=== PATIENT | male | born 1955 | race Caucasian/White ===

== ENCOUNTER 2016-06-04 16:14 | Observation (INO) | payer SELFPAY ==
[~2016-06-04] VITALS: Ht 188 cm; Wt 87.9 kg
[~2016-06-04 16:14] MED LIST: ZITH250T PO
[2016-06-04 16:20] VITALS: BP 131/82; PULSE 66; RESP 18; TEMP 98.4; O2SAT 96
[2016-06-04] MEDS ORDERED: MORPHINE SULFATE 4 MG/ML INJ IV PUSH ONE (16:30)
[2016-06-04] MEDS ORDERED: ONDANSETRON HCL 4 MG/2 ML VIAL IV PUSH ONE (16:30)
[2016-06-04] MEDS ORDERED: TETANUS/DIPHTHERIA TOXOID ADULT 0.5 ML VIAL IM ONE (16:30)
--- NOTE | 2016-06-04 17:05 | RADRPT ---
EXAM DATE/TIME: 06/04/2016 16:42 [facility] COMPARISON: No previous studies available for comparison. INDICATIONS : Fall off 8 foot balcony today; cephalgia. RADIATION DOSE: 56.35 CTDIvol (mGy) MEDICAL HISTORY : None SURGICAL HISTORY : Tonsillectomy. Ear surgery ENCOUNTER: Initial ACUITY: 1 day PAIN SCALE: 6/10 LOCATION: cranial TECHNIQUE: Multiple contiguous axial images were obtained of the head. Using automated exposure control and adj ustment of the mA and/or kV according to patient size, radiation dose was kept as low as reasonably a chievable to obtain optimal diagnostic quality images. FINDINGS: CEREBRUM: The ventricles are normal for age. No evidence of midline shift, mass lesion, hemorrhage or acute in farction. No extra-axial fluid collections are seen. POSTERIOR FOSSA: The cerebellum and brainstem are intact. The 4th ventricle is midline. The cerebellopontine angle i s unremarkable. EXTRACRANIAL: The visualized portion of the orbits is intact. SKULL: The calvaria is intact. No evidence of skull fracture. CONCLUSION: 1. No acute intracranial abnormality identified. Mervin George MD on June 04, 2016 at 17:03 Board Certified Radiologist. This report was verified electronically.
--- NOTE | 2016-06-04 17:16 | RADRPT ---
EXAM DATE/TIME: 06/04/2016 16:36 [facility] COMPARISON: No previous studies available for comparison. INDICATIONS : Right ankle and foot pain. Patient fell through a second story porch. MEDICAL HISTORY : None. SURGICAL HISTORY : None. ENCOUNTER: Initial ACUITY: 1 day PAIN SCORE: 10/10 LOCATION: Right ankle. FINDINGS: There is a comminuted fracture of the calcaneus with loss of Boehler's angle. The fracture fragment e xtends into the subtalar joint. The talus itself is intact. Bony mineralization is normal. CONCLUSION: 1. Comminuted fracture of the calcaneus Gabriel Mejia MD on June 04, 2016 at 17:14 Board Certified Radiologist. This report was verified electronically.
--- NOTE | 2016-06-04 17:17 | RADRPT ---
EXAM DATE/TIME: 06/04/2016 16:40 [facility] COMPARISON: No previous studies available for comparison. INDICATIONS : Right foot and ankle pain. Patient fell through a second story porch. MEDICAL HISTORY : None. SURGICAL HISTORY : None. ENCOUNTER: Initial ACUITY: 1 day PAIN SCORE: 10/10 LOCATION: Right foot. FINDINGS: Three view examination of the right foot demonstrates no soft tissue swelling, dislocation, or fractu re. The tarsal bones appear intact. The interphalangeal and metatarsophalangeal joints are intact. Comminuted calcaneal fracture is present. CONCLUSION: 1. Comminuted calcaneal fracture Gabriel Mejia MD on June 04, 2016 at 17:14 Board Certified Radiologist. This report was verified electronically.
--- NOTE | 2016-06-04 17:25 | PD ---
HPI Chief Complaint: Fall Time Seen by Provider: 17:19 Travel History International Travel<30 days: No Contact w/Intl Traveler<30days: No Traveled to known affect area: No History of Present Illness HPI 60-year-old male that presents to the ED for evaluation of fall. Per patient he was on his porch on the second floor and apparently collapsed on itself. Per patient he fell into his right foot which took most of the impact. Per patient he has no pain anywhere else. He did hit his head and has a lot of dirt over him as he fell into third but denies losing consciousness or any other injuries. He does have abrasions to his head. He does not know his last tetanus shot. Per patient most of the pain is on the right foot and ankle from which she does have some swelling. Per patient the pain here is 8 out of 10. Ambulance was called and brought him here on a metal splint on the right leg. He denies any back pain or neck pain. No arm pain. No pain on the left lower extremity. He denies any abdominal pain or chest pain. He denies any blood thinners. He follows with Dr. Lujan for orthopedic surgery in the past for his left wrist. He has no allergies to medication. Denies any other medical problems. Pain does not radiate and stays mainly on the lower leg. Denies any numbness, tingling, weakness. No prior injuries to this leg. PFSH Past Medical History Anxiety: Yes Cancer: No Cardiovascular Problems: No Diminished Hearing: No Endocrine: No Genitourinary: No Immune Disorder: No Musculoskeletal: No Neurologic: No Psychiatric: Yes Reproductive: No Respiratory: No Past Surgical History Ear Surgery: Yes (ILENE. MYRINGOTOMIES) Oral Surgery: Yes (T & A) Tonsillectomy: Yes Tympanostomy Tube: Yes Social History Alcohol Use: No Tobacco Use: Yes (1 PK PER WEEK) Substance Use: No Allergies-Medications (Allergen,Severity, Reaction): Coded Allergies: No Known Allergies (Verified , 03/10/15) Reported Meds & Prescriptions Reported Meds & Active Scripts Active Zithromax Z-Deepak (Azithromycin) 250 Mg Tab 250 Mg PO DIRECTED 5 Days 500 MG (2 TABLETS) PO ON DAY 1, THEN 250 MG (1 TABLET) PO ON DAYS 2 TO 5. Review of Systems Except as stated in HPI: all other systems reviewed are Neg Physical Exam Narrative GENERAL: SKIN: Warm and dry. HEAD: Atraumatic. Normocephalic. EYES: Pupils equal and round. No scleral icterus. No injection or drainage. ENT: No nasal bleeding or discharge. Mucous membranes pink and moist. Tongue is midline. No uvula deviation. NECK: Trachea midline. No JVD. CARDIOVASCULAR: Regular rate and rhythm. No murmurs, S3, S4. RESPIRATORY: No accessory muscle use. Clear to auscultation. Breath sounds equal bilaterally. GASTROINTESTINAL: Abdomen soft, non-tender, nondistended. Hepatic and splenic margins not palpable. MUSCULOSKELETAL: Extremities without clubbing, cyanosis, or edema. No obvious deformities. Full range of motion of the upper extremities with no pain. 2+ pulses in the upper extremities. No lumbar, thoracic, cervical spine tenderness to palpation. Patient does have some tenderness to palpation especially on the heel aspect of the right foot. Some swelling in the area. Patient has no lateral medial malleolar pain with touch. No obvious deformity noted on the knee or hip but able to move the hip and knee with no issues. Patient has full range of motion and no pain with range of motion of the left upper and lower extremity. 2+ pulses bilaterally in the lower extremities. Neurovascular intact. Good capillary refills in all toes. NEUROLOGICAL: Awake and alert. No obvious cranial nerve deficits. Motor grossly within normal limits. Five out of 5 muscle strength in the arms and legs. Normal speech. PSYCHIATRIC: Appropriate mood and affect; insight and judgment normal. Data Data Last Documented VS Vital Signs Date Time Temp Pulse Resp B/P Pulse Ox O2 Delivery O2 Flow Rate FiO2 06/04/16 16:20 98.4 66 18 131/82 96 Orders Ankle, Complete (Pay3gog) (06/04/16 16:23) Foot, Complete (Oqx2awt) (06/04/16 16:23) Ice/Cold Pack (06/04/16 16:23) Ct Brain W/O Iv Contrast(Rout) (06/04/16 16:23) Morphine Inj (Morphine Inj) (06/04/16 16:30) Ondansetron Inj (Zofran Inj) (06/04/16 16:30) Wound Care (06/04/16 16:25) Tetanus/Diphtheria Tox Adult (Tetanus/Di (06/04/16 16:30) Spine, Lumbar - Ltd (Ap & Lat) (06/04/16 ) Femur (Ap & Lat/2vws) (06/04/16 ) Tibia/Fibula (Ap/Lat) (06/04/16 ) Ct Foot W/O Contrast (06/04/16 ) Hydromorphone Pf Inj (Dilaudid Pf Inj) (06/04/16 18:00) Diet Npo (06/05/16 Dinner) ^ Consent (06/04/16 18:25) ^ Other Nursing Orders (06/04/16 18:25) Admit To Inpatient (06/04/16 ) Vital Signs (Adult) Q4H (06/04/16 18:23) Activity Oob With Assistance (06/04/16 18:23) Bedside Glucose JAMES.AC&HS (06/04/16 18:23) Head Rigger / Telemetry .CONTINUOUS (06/04/16 18:23) Diet Heart Healthy (06/04/16 Dinner) Sodium Chlor 0.9% 1000 Ml Inj (Ns 1000 M (06/04/16 18:23) Sodium Chloride 0.9% Flush (Ns Flush) (06/04/16 18:30) Sodium Chloride 0.9% Flush (Ns Flush) (06/04/16 21:00) Acetaminophen (Tylenol) (06/04/16 18:30) Ondansetron Inj (Zofran Inj) (06/04/16 18:30) Magnesium Hydroxide Liq (Milk Of Magnesi (06/04/16 18:30) Basic Metabolic Panel (Bmp) (06/05/16 06:00) Comprehensive Metabolic Panel (06/05/16 06:00) Resp Oxygen Vickey C Titrat 1-4 L (06/04/16 ) Pt Request For Service (06/04/16 18:23) Ot Request For Service (06/04/16 18:23) Case Management Consult (06/04/16 18:23) Scd Bilateral/Knee High JAMES.BID (06/04/16 18:23) Inpatient Certification (06/04/16 ) Admit Order (Ed Use Only) (06/04/16 18:28) MDM Medical Decision Making Medical Screen Exam Complete: Yes Emergency Medical Condition: Yes Medical Record Reviewed: Yes Interpretation(s) Last Impressions Head CT 06/04/16 1623 Signed Impressions: Service Date/Time: Saturday, June 04, 2016 16:42 - CONCLUSION: 1. No acute intracranial abnormality identified. Mervin George MD Differential Diagnosis Fracture versus sprain versus strain versus bruise versus contusion versus fall Narrative Course 60-year-old male that presents to the ED for evaluation of right foot pain after fall. Patient was properly examined and was found to have signs and symptoms concerning for fractures. X-rays were ordered. Patient was given IV pain medications. X-ray showed right calcaneus fracture. Case was discussed in my attending who recommends doing x-rays of the lumbar spine as well as the femur and tibia and fibula to make sure there is no other acute injury. This was done and was negative. Case was discussed with Dr. Tinoco from podiatry who recommends admission to medicine for surgery tomorrow. This was discussed with Dr. Galindo who agrees to admission. Patient was put on a splint as per podiatry's recommendation. She also wanted me to order CT to better evaluate the fracture. Patient was told this and agrees with admission and surgical plan. Diagnosis Primary Impression: Right calcaneal fracture Qualified Code: S92.014A - Closed nondisplaced fracture of body of right calcaneus, initial encounter Admitting Information Admitting Physician Requests: Observation Malachi Louie Jun 04, 2016 17:25
--- NOTE | 2016-06-04 17:51 | RADRPT ---
EXAM DATE/TIME: 06/04/2016 17:19 [facility] COMPARISON: No previous studies available for comparison. INDICATIONS : Trauma. Patient fell through a second story porch. Right leg pain. MEDICAL HISTORY : None. SURGICAL HISTORY : None. ENCOUNTER: Initial ACUITY: 1 day PAIN SCORE: 5/10 LOCATION: Right leg. FINDINGS: Two view examination of the right femur demonstrates no evidence of fracture or dislocation. Bony mi neralization is normal. The soft tissue structures are intact. CONCLUSION: 1. Negative examination of the femur. Gabriel Mejia MD on June 04, 2016 at 17:50 Board Certified Radiologist. This report was verified electronically.
--- NOTE | 2016-06-04 17:51 | RADRPT ---
EXAM DATE/TIME: 06/04/2016 17:18 [facility] COMPARISON: No previous studies available for comparison. INDICATIONS : Trauma. Patient fell through a second story porch. MEDICAL HISTORY : None. SURGICAL HISTORY : None. ENCOUNTER: Initial ACUITY: 1 day PAIN SCORE: 0/10 LOCATION: Bilateral lower back. FINDINGS: The vertebral bodies are normal in alignment on the lateral view. Moderate scoliotic deformity is pre sent to the right with a rotatory component with the apex at 02. There is no evidence of acute fractu re. Bony mineralization is normal. CONCLUSION: 1. There is no evidence of acute fracture. Gabriel Mejia MD on June 04, 2016 at 17:49 Board Certified Radiologist. This report was verified electronically.
--- NOTE | 2016-06-04 17:52 | RADRPT ---
EXAM DATE/TIME: 06/04/2016 17:25 [facility] COMPARISON: No previous studies available for comparison. INDICATIONS : Trauma. Patient fell through a second story porch. Right leg pain. MEDICAL HISTORY : None. SURGICAL HISTORY : None. ENCOUNTER: Initial ACUITY: 1 day PAIN SCORE: 5/10 LOCATION: Right leg. FINDINGS: Two view examination of the right tibia demonstrates no evidence of fracture or dislocation. Bony mi neralization is normal. The soft tissue structures are intact. CONCLUSION: Negative examination of the tibia and fibula. 1. Gabriel Mejia MD on June 04, 2016 at 17:50 Board Certified Radiologist. This report was verified electronically.
[2016-06-04] MEDS ORDERED: HYDROmorphone HCL PF 1 MG/ML VIAL IV PUSH ONE (18:00)
--- NOTE | 2016-06-04 18:08 | RADRPT ---
EXAM DATE/TIME: 06/04/2016 17:28 [facility] COMPARISON: ANKLE RIGHT COMPLETE ([id number]), June 04, 2016, 16:36. INDICATIONS : Trauma. Fell off a balcony today. Right foot pain. RADIATION DOSE: 9.19 CTDIvol (mGy) MEDICAL HISTORY : None SURGICAL HISTORY : None. ENCOUNTER: Initial ACUITY: 1 day PAIN SCALE: 10/10 LOCATION: Right foot TECHNIQUE: Volumetric scanning of the foot was performed. Using automated exposure control and adjustment of th e mA and/or kV according to patient size, radiation dose was kept as low as reasonably achievable to obtain optimal diagnostic quality images. FINDINGS: There are comminuted fractures of the calcaneus with a vertical fracture line through the posterior o ne 3rd body, horizontal line through the superior posterior one 3rd body, vertical fractures through the posterior middle and anterior articular facets, and multiple small bony fragments about the anter ior inferior aspect. The there is also a fracture through the base of the fused os trigonum. The ta marah, cuboid, and navicular are grossly intact. There is motion artifact in the forefoot making the f orefoot portion of the exam nondiagnostic. CONCLUSION: Comminuted calcaneal fractures involving all 3 facets, and anterior body, and posterior body. Robbin Boggs MD on June 04, 2016 at 18:03 Board Certified Radiologist. This report was verified electronically.
[2016-06-04] MEDS ORDERED: ONDANSETRON HCL 4 MG/2 ML VIAL IVP PRN (18:30)
[2016-06-04] MEDS ORDERED: ACETAMINOPHEN 325 MG TAB PO PRN (18:30)
[2016-06-04] MEDS ORDERED: MAGNESIUM HYDROXIDE SUSP 30 ML CUP PO PRN (18:30)
[2016-06-04] MEDS ORDERED: SODIUM CHLORIDE 0.9% FLUSH 10 ML FLUSH IV FLUSH PRN (18:30)
--- NOTE | 2016-06-04 20:36 | MB ---
cc: HARRIET SOFIA DPM DATE OF CONSULTATION 06/04/16 CHIEF COMPLAINT Right calcaneal fracture. HISTORY OF PRESENT ILLNESS Mr. León is a 60-year-old male patient who states that he was watering plants on his balcony and the balcony collapsed underneath him and he fell one story. He tried to get up and was unable to place weight onto the right foot and he was transferred to the emergency department where he has some swelling above the left eye, small laceration to the back of the head and a comminuted right calcaneal fracture. The patient states it is very painful, but he is tolerating it well. He states that he had a comminuted fracture of the left wrist which was operated on twice but eventually did heal. 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 The patient denies any numbness or unrelenting pain. PAST MEDICAL HISTORY The patient denies. PAST SURGICAL HISTORY Left wrist ORIF x2. MEDICATIONS Please see list. ALLERGIES NO KNOWN DRUG ALLERGIES. SOCIAL HISTORY The patient was at home alone. Denies any alcohol or drug abuse. 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 PHYSICAL EXAMINATION On physical exam, the patient does have palpable DP and PT pulses. Cap fill time less than 3 seconds. Active range of motion to the digits is within normal limits. Some mild to moderate edema on the posterior heel with some ecchymosis, but the plantar vault is supple. No signs of compartment syndrome. IMAGING STUDIES CAT scan shows comminuted calcaneal fracture with the joint depression and widening. ASSESSMENT Right foot comminuted calcaneal fracture. PLAN -Open reduction internal fixation tomorrow. -The patient understands he will be non-weightbearing postoperatively. -We will obtain crutches and oral medication needed for the patient before discharge. -I did review conservative and surgical options. The patient is agreeable to proceed with surgery. The consent was signed. The procedure was explained. No guarantees were given. He is to be n.p.o. after midnight. Continue current pain management. Harriet Sofia LMW/SA /6:32 PM /8:25 PM NAVA
[2016-06-04] MEDS: SODIUM CHLORIDE 0.9% FLUSH 10 ML FLUSH IV FLUSH SCH (21:00)
[2016-06-04] MEDS: HYDROmorphone HCL PF 1 MG/ML VIAL IV PUSH PRN (21:28)
[2016-06-04] MEDS: SODIUM CHLOR 0.9% 1000 ML INJ 1,000 ML IV SCH (21:28)
[2016-06-04 23:55] VITALS: BP 119/71; PULSE 74; RESP 18; TEMP 97.1; O2SAT 97
[2016-06-05] VITALS (7 sets, daily range): BP systolic 103–126; BP diastolic 56–76; PULSE 61–89; RESP 16–20; TEMP 97.8–99; O2SAT 92–95
[2016-06-05] MEDS: HYDROmorphone HCL PF 1 MG/ML VIAL IV PUSH PRN ×4 (01:39→14:29)
--- NOTE | 2016-06-05 02:09 | HHI.HP ---
[facility] Unknown Admission Diagnosis right calcaneal fracture Diagnoses: (1) Right calcaneal fracture Diagnosis: Principal Chief Complaint: fall with pain to the right ankle Travel History International Travel<30 Days: No Contact w/Intl Traveler <30 Da: No Traveled to Known Affected Are: No History of Present Illness patient is a 60 y/o male who presented to ER with pain to the right ankle after he fell at home. he says that he was working on his porch when he suddenly fell. he denies any prodromal symptoms prior to the fall including chest pain, sob, or dizziness. he didn't pass out but he hit his head on the floor. he was found to have right ankle fracture. other than pain to the right ankle he denies any other complaints. Review of Systems Constitutional: DENIES: Fever, Weight loss, Chills, Night Sweats Eyes: DENIES: Blurred vision, Diplopia, Vision loss, Double Vision Ears, nose, mouth, throat: DENIES: Tinnitus, Vertigo, Throat pain, Epistaxis Respiratory: DENIES: Apneas, Cough, Snoring, Wheezing, Hemoptysis, Sputum production, Shortness of breath Cardiovascular: DENIES: Chest pain, Palpitations, Syncope, Dyspnea on Exertion , PND, Lower Extremity Edema, Orthopnea, Claudication Gastrointestinal: DENIES: Abdominal pain, Black stools, Bloody stools, Constipation, Diarrhea, Nausea, Vomiting, Difficulty Swallowing, Anorexia Genitourinary: DENIES: Urinary frequency, Urgency, Hematuria, Dysuria Musculoskeletal: COMPLAINS OF: Joint pain (right ankle.), DENIES: Muscle aches , Stiffness, Joint Swelling Integumentary: DENIES: Rash Neurologic: DENIES: Abnormal gait, Headache, Localized weakness, Paresthesias, Seizures, Speech Problems, Tremor, Poor Balance Psychiatric: DENIES: Anxiety, Confusion, Mood changes, Depression, Hallucinations, Agitation, Suicidal Ideation, Homicidal Ideation, Delusions Past Family Social History Past Medical History not significant. Past Surgical History surgery on the left hand. Reported Medications none reported. Allergies: Coded Allergies: No Known Allergies (Verified , 03/10/15) Active Ordered Medications Current Medications Morphine Sulfate (Morphine Inj) 4 mg ONCE ONCE IV PUSH Last administered on 16:58; Start 06/04/16 at 16:30; Stop 06/04/16 at 16:31; Status DC Ondansetron HCl (Zofran Inj) 4 mg ONCE ONCE IV PUSH Last administered on 16:58; Start 06/04/16 at 16:30; Stop 06/04/16 at 16:31; Status DC Tetanus/ Diphtheria Toxoids (Tetanus/ Diphtheria Tox Adult) 0.5 ml ONCE ONCE IM Last administered on 06/04/16 16:59; Start 06/04/16 at 16:30; Stop 06/04/16 at 16:31; Status DC Hydromorphone HCl 1 mg 1 mg ONCE ONCE IV PUSH Last administered on 06/04/16 18 :11; Start 06/04/16 at 18:00; Stop 06/04/16 at 18:01; Status DC Sodium Chloride (NS 1000 ml Inj) 1,000 ml @ 100 mls/hr Q10H IV Last administered on 06/04/16 21:28; Start 06/04/16 at 18:23 Sodium Chloride (NS Flush) 2 ml UNSCH PRN IV FLUSH FLUSH AFTER USING IV ACCESS ; Start 06/04/16 at 18:30 Sodium Chloride (NS Flush) 2 ml BID IV FLUSH ; Start 06/04/16 at 21:00 Acetaminophen (Tylenol) 650 mg Q4H PRN PO TEMP > 100.4 Last administered on 06/04 20:33; Start 06/04/16 at 18:30 Ondansetron HCl (Zofran Inj) 4 mg Q6H PRN IVP NAUSEA OR VOMITING Last administered on 06/04/16 21:29; Start 06/04/16 at 18:30 Magnesium Hydroxide (Milk Of Magnesia Liq) 30 ml Q12H PRN PO CONSTIPATION; Start 06/04/16 at 18:30 Hydromorphone HCl (Dilaudid Pf Inj) 1 mg Q4H PRN IV PUSH PAIN Last administered on 06/05/16 01:39; Start 06/04/16 at 20:45 Pneumococcal Polyvalent Vaccine (Pneumovax-23 Inj) 25 mcg ONCE ONCE IM ; Start 06/05/16 at 09:00; Stop 06/05/16 at 09:01 Influenza Virus Vaccine (Flu (Quadrivalent) Vaccine Inj) 0.5 ml ONCE ONCE IM ; Start 06/05/16 at 09:00; Stop 06/05/16 at 09:01 Family History not relevant to this consult. Social History no smoking or drinking. Physical Exam Vital Signs Vital Signs Date Time Temp Pulse Resp B/P Pulse Ox O2 Delivery O2 Flow Rate FiO2 06/05/16 00:20 65 06/04/16 23:55 97.1 74 18 119/71 97 06/04/16 22:05 20 06/04/16 21:40 20 06/04/16 16:20 98.4 66 18 131/82 96 Physical Exam GENERAL: This is a well-nourished, well-developed patient, in no apparent distress. SKIN: laceration on the scalp HEAD: Atraumatic. Normocephalic. No temporal or scalp tenderness. EYES: Pupils equal round and reactive. Extraocular motions intact. No scleral icterus. No injection or drainage. ENT: Nose without bleeding, purulent drainage or septal hematoma. Throat without erythema, tonsillar hypertrophy or exudate. Uvula midline. Airway patent. NECK: Trachea midline. No JVD or lymphadenopathy. Supple, nontender, no meningeal signs. CARDIOVASCULAR: Regular rate and rhythm without murmurs, gallops, or rubs. RESPIRATORY: Clear to auscultation. Breath sounds equal bilaterally. No wheezes , rales, or rhonchi. GASTROINTESTINAL: Abdomen soft, non-tender, nondistended. No hepato-splenomegaly , or palpable masses. No guarding. MUSCULOSKELETAL: right ankle covered with clean dressing. NEUROLOGICAL: Awake and alert. Cranial nerves II through XII intact. Motor and sensory grossly within normal limits. Five out of 5 muscle strength in all muscle groups. Normal speech. Imaging Last Impressions Head CT 06/04/161622 Signed Impressions: Service Date/Time: Saturday, June 04, 2016 16:42 - CONCLUSION: 1. No acute intracranial abnormality identified. Mervin George MD Foot X-Ray 06/04/161622 Signed Impressions: Service Date/Time: Saturday, June 04, 2016 16:40 - CONCLUSION: 1. Comminuted calcaneal fracture Gabriel Mejia MD Ankle X-Ray 06/04/16 1623 Signed Impressions: Service Date/Time: Saturday, June 04, 2016 16:36 - CONCLUSION: 1. Comminuted fracture of the calcaneus Gabriel Mejia MD Tibia/Fibula X-Ray 06/04/16 0000 Signed Impressions: Service Date/Time: Saturday, June 04, 2016 17:25 - CONCLUSION: Negative examination of the tibia and fibula. 1. Gabriel Mejia MD Lumbar Spine X-Ray 06/04/16 0000 Signed Impressions: Service Date/Time: Saturday, June 04, 2016 17:18 - CONCLUSION: 1. There is no evidence of acute fracture. Gabriel Mejia MD Lower Extremity CT 06/04/16 0000 Signed Impressions: Service Date/Time: Saturday, June 04, 2016 17:28 - CONCLUSION: Comminuted calcaneal fractures involving all 3 facets, and anterior body, and posterior body. Robbin Boggs MD Femur X-Ray 06/04/16 0000 Signed Impressions: Service Date/Time: Saturday, June 04, 2016 17:19 - CONCLUSION: 1. Negative examination of the femur. Gabriel Mejia MD Assessment and Plan Assessment and Plan A/P - fall with right calcaneal fracture NPO for now- continue IV fluid- continue with pain control. podiatry consult appreciated and plan for ORIF . -DVT prophylaxis- SCD's- pending the planned surgery. Discussed Condition With the patient. Physician Certification 2 Midnight Certification Type: Admission for Inpatient Services Order for Inpatient Services The services are ordered in accordance with Medicare regulations or non- Medicare payer requirements, as applicable. In the case of services not specified as inpatient-only, they are appropriately provided as inpatient services in accordance with the 2-midnight benchmark. Estimated LOS (days): 2 days is the estimated time the patient will need to remain in the hospital, assuming treatment plan goals are met and no additional complications. Post-Hospital Plan: Home Problem Qualifiers (1) Right calcaneal fracture: Qualified Code: S92.014A - Closed nondisplaced fracture of body of right calcaneus, initial encounter Gildardo Garcia MD Jun 05, 2016 02:09
[2016-06-05 05:07] LABS: APTT (PATIENT) 28.8 SEC (24.3-30.1); PROTHROMBIN TIME - PATIENT 10.7 SEC (9.8-11.6)
[2016-06-05 05:27] LABS: ANION GAP 10 MEQ/L (5-15); AST (GOT) 25 U/L (15-37); BICARBONATE 25.3 MEQ/L (21.0-32.0); BLOOD UREA NITROGEN 21 MG/DL (7-18); CHLORIDE 105 MEQ/L (98-107); GLOMERULAR FILTRATION RATE 78 ML/MIN (>89); POTASSIUM 3.9 MEQ/L (3.5-5.1); SODIUM (NA) 140 MEQ/L (136-145)
[2016-06-05 05:30] LABS: ALKALINE PHOSPHATASE 89 U/L (45-117); ALT (GPT) 27 U/L (12-78); TOTAL BILIRUBIN ADULT 0.5 MG/DL (0.2-1.0)
[2016-06-05] MEDS: SODIUM CHLOR 0.9% 1000 ML INJ 1,000 ML IV SCH ×2 (06:08→14:23)
[2016-06-05] MEDS ORDERED: PNEUMOCOCCAL POLYVALENT INJ 25 MCG/0.5 ML SYR IM ONE (09:00)
[2016-06-05] MEDS ORDERED: INFLUENZA VIRUS VACCINE (QUADRIVALENT) 0.5 ML SYR IM ONE (09:00)
--- NOTE | 2016-06-05 09:17 | EKG ---
Date Performed: 06/04/2016 Time Performed: 21:24:46 PTAGE: 60 years EKG: Sinus rhythm INCOMPLETE RIGHT BUNDLE BRANCH BLOCK BORDERLINE ECG PREVIOUS TRACING : 04/02/2011 12.02 DOCTOR: Eric Tafoya Interpretating Date/Time 06/05/2016 09:14:51
[2016-06-05] MEDS: SODIUM CHLORIDE 0.9% FLUSH 10 ML FLUSH IV FLUSH SCH ×2 (10:22→21:00)
[2016-06-05] MEDS ORDERED: PROPOFOL 200 MG/20 ML AMP IV ONE (12:00)
[2016-06-05] MEDS ORDERED: ePHEDrine/NS 25 MG/5 ML SYR IV ONE (12:00)
[2016-06-05] MEDS ORDERED: PHENYLEPH/NS 1000 MCG/10 ML SYR IV ONE (12:00)
[2016-06-05] MEDS ORDERED: ONDANSETRON HCL 4 MG/2 ML VIAL IV PUSH ONE (12:00)
[2016-06-05] MEDS ORDERED: LACTATED RINGER'S 1000 ML INJ 1,000 ML IV ONE (12:00)
--- NOTE | 2016-06-05 14:43 | HHI.PR ---
Subjective Remarks Follow-up for fall with ankle fracture. Patient seen with his at bedside. The patient was on his back porch watering the plants yesterday when the porch collapsed, he felt with it. He complains of right heel pain, partially relieved by pain medication. He also complains of a mild headache, he did hit his head. He denies any lightheadedness, dizziness, vision changes. He doesn' t currently follow with any physicians. Understands that he will need to be nonweightbearing after the surgery. Plan is for surgery 4 PM today. Objective Vitals Vital Signs Date Time Temp Pulse Resp B/P Pulse Ox O2 Delivery O2 Flow Rate FiO2 06/05/16 12:14 99.0 62 16 103/56 94 06/05/16 11:38 67 06/05/16 08:40 97.8 63 19 103/63 92 06/05/16 07:40 98.3 61 16 115/69 95 06/05/16 06:40 20 06/05/16 03:04 98.1 65 18 119/71 95 06/05/16 00:20 65 06/04/16 23:55 97.1 74 18 119/71 97 06/04/16 21:40 20 06/04/16 16:20 98.4 66 18 131/82 96 I/O 06/04/16 06/04/16 06/04/16 06/05/16 06/05/16 06/05/16 07:00 15:00 23:00 07:00 15:00 23:00 Intake Total 376 ml Output Total 300 ml Balance 76 ml Intake IV Total 376 ml Output Urine Total 300 ml Result Diagram: 06/05/16 0355 Imaging Last Impressions Head CT 06/04/161622 Signed Impressions: Service Date/Time: Saturday, June 04, 2016 16:42 - CONCLUSION: 1. No acute intracranial abnormality identified. Mervin George MD Foot X-Ray 06/04/161622 Signed Impressions: Service Date/Time: Saturday, June 04, 2016 16:40 - CONCLUSION: 1. Comminuted calcaneal fracture Gabriel Mejia MD Ankle X-Ray 06/04/161622 Signed Impressions: Service Date/Time: Saturday, June 04, 2016 16:36 - CONCLUSION: 1. Comminuted fracture of the calcaneus Gabriel Mejia MD Tibia/Fibula X-Ray 06/04/16 0000 Signed Impressions: Service Date/Time: Saturday, June 04, 2016 17:25 - CONCLUSION: Negative examination of the tibia and fibula. 1. Gabriel Mejia MD Lumbar Spine X-Ray 06/04/16 0000 Signed Impressions: Service Date/Time: Saturday, June 04, 2016 17:18 - CONCLUSION: 1. There is no evidence of acute fracture. Gabriel Mejia MD Lower Extremity CT 06/04/16 0000 Signed Impressions: Service Date/Time: Saturday, June 04, 2016 17:28 - CONCLUSION: Comminuted calcaneal fractures involving all 3 facets, and anterior body, and posterior body. Robbin Boggs MD Femur X-Ray 06/04/16 0000 Signed Impressions: Service Date/Time: Saturday, June 04, 2016 17:19 - CONCLUSION: 1. Negative examination of the femur. Gabriel Mejia MD Objective Remarks GENERAL: Well-developed well-nourished. In no acute distress. SKIN: Warm and dry. Contusion above the left eyebrow. HEENT: Normocephalic. Pupils equal and round. Mucous membranes pink and moist. CARDIOVASCULAR: Regular rate and rhythm. No murmur appreciated. RESPIRATORY: No accessory muscle use. Clear to auscultation. Breath sounds equal bilaterally. GASTROINTESTINAL: Abdomen soft, non-tender, nondistended. Bowel sounds x4. MUSCULOSKELETAL: No obvious deformities. No clubbing or cyanosis. No edema. Able to wiggle right toes a little. NEUROLOGICAL: Awake and alert. No focal neurological deficits. Moves upper and lower extremities spontaneously. Normal speech. Sensation grossly intact in distal right lower extremity. PSYCHIATRIC: Appropriate mood and affect; insight and judgment normal. A/P Problem List: (1) Right calcaneal fracture ICD Code: S92.001A Status: Acute Assessment and Plan 60-year-old male with no significant past medical history who presented with fall after his back porch collapsed and admitted with right calcaneal fracture Comminuted right calcaneal fracture: Seen on imaging. Podiatry, Dr. Tinoco, consulted and recommends operative management. Follow-up activity and weightbearing status after surgery. Add oral oxycodone for pain control, continue IV Dilaudid for breakthrough. PT/OT, follow-up recommendations after surgery. Mechanical fall: [employer] imaging unremarkable including head CT unremarkable, except for calcaneal fracture as above. Pain control as needed. DVT prophylaxis: SCDs for now. May need chemical prophylaxis after surgery. Discharge Planning manager federal consult for assistance with discharge disposition outpatient follow -up. Problem Qualifiers (1) Right calcaneal fracture: Qualified Code: S92.014A - Closed nondisplaced fracture of body of right calcaneus, initial encounter Derrick Davis Jun 05, 2016 14:43
[2016-06-05] MEDS ORDERED: ACETAMINOPHEN/HYDROcodone 325 MG/10 MG TAB PO PRN (14:45)
[2016-06-05] MEDS ORDERED: oxyCODONE/ACETAMINOPHEN 5 MG/325 MG TAB PO PRN (14:45)
[2016-06-05] MEDS ORDERED: FAMOTIDINE 20 MG/2 ML VIAL ONE (16:30)
[2016-06-05] MEDS ORDERED: MIDAZOLAM HCL 2 MG/2 ML VIAL ONE (16:30)
[2016-06-05] MEDS ORDERED: ceFAZolin 2 GM PREMIX 50 ML ONE (16:43)
[2016-06-05] MEDS ORDERED: fentaNYL CITRATE 250 MCG/5 ML AMP ONE (19:01)
[2016-06-05] MEDS ORDERED: MORPHINE SULFATE 4 MG/ML INJ ONE (19:01)
[2016-06-05] MEDS ORDERED: BUPIVACAINE HCL PF 0.5% 30 ML VIAL ONE (20:01)
--- NOTE | 2016-06-05 22:43 | RADRPT ---
EXAM DATE/TIME: 06/05/2016 21:50 [facility] COMPARISON: No previous studies available for comparison. INDICATIONS : Status post ORIF right heel. MEDICAL HISTORY : None. SURGICAL HISTORY : None. ENCOUNTER: Subsequent ACUITY: 1 day PAIN SCORE: Non-responsive. LOCATION: Right Heel FINDINGS: There is plate and screw fixation of the calcaneus. Near-anatomic alignment present. No dislocation a t the ankle joint or subtalar joint. One of the screws may extend slightly into the subtalar joint. CONCLUSION: 1. Extensive plate and screw fixation of the calcaneus with near anatomic alignment at the fracture s ites. Ravi Casiano MD on June 05, 2016 at 22:40 Board Certified Radiologist. This report was verified electronically.
[2016-06-05] MEDS: MORPHINE SULFATE 4 MG/ML INJ IV PUSH PRN (22:48)
[2016-06-06] VITALS (10 sets, daily range): BP systolic 117–125; BP diastolic 66–76; PULSE 80–103; RESP 16–18; TEMP 97.6–99.9; O2SAT 92–96
[2016-06-06] MEDS: SODIUM CHLOR 0.9% 1000 ML INJ 1,000 ML IV SCH ×2 (01:58→10:23)
[2016-06-06] MEDS: MORPHINE SULFATE 4 MG/ML INJ IV PUSH PRN ×6 (01:59→23:58)
[2016-06-06 05:21] LABS: AUTOMATED NEUTROPHIL # 7.8 TH/MM3 (1.8-7.7); BASOPHIL % 0.3 % (0.0-2.0); EOSINOPHIL % 0.2 % (0.0-4.0); HEMATOCRIT 38.5 % (39.0-51.0); HEMO FLAGS DIFF FINAL; LYMPH % 22.2 % (9.0-44.0); LYMPHOCYTE # 2.6 TH/MM3 (1.0-4.8); MEAN CELL VOLUME 86.7 FL (80.0-100.0); MEAN CORPUSCULAR HEMOGLOBIN 29.6 PG (27.0-34.0); MEAN CORPUSCULAR HGB CONC 34.1 % (32.0-36.0); NEUT % 66.3 % (16.0-70.0); PLATELET COUNT 230 TH/MM3 (150-450); RED BLOOD COUNT 4.44 MIL/MM3 (4.50-5.90); WHITE BLOOD COUNT 11.8 TH/MM3 (4.0-11.0)
[2016-06-06 05:28] LABS: BICARBONATE 26.7 MEQ/L (21.0-32.0); POTASSIUM 3.7 MEQ/L (3.5-5.1)
[2016-06-06] MEDS: oxyCODONE/ACETAMINOPHEN 7.5 MG/325 MG TAB PO PRN ×4 (08:14→21:56)
[2016-06-06] MEDS: SODIUM CHLORIDE 0.9% FLUSH 10 ML FLUSH IV FLUSH SCH ×2 (09:00→21:00)
--- NOTE | 2016-06-06 10:30 | HHI.PR ---
Subjective Remarks Follow-up for calcaneal fracture. at bedside. Patient is sitting up on the side of the bed about to start with PT. He states that he didn't sleep well. He denies any fevers or chills. He feels like his right ankle is swollen after surgery. He states the pain medication helps. Objective Vitals Vital Signs Date Time Temp Pulse Resp B/P Pulse Ox O2 Delivery O2 Flow Rate FiO2 06/06/16 08:28 92 21 06/06/16 05:54 80 06/06/16 04:59 98.2 87 18 119/71 94 06/05/16 23:43 98.7 89 20 126/76 94 06/05/16 20:55 97.5 108 20 131/90 95 Nasal Cannula 2 06/05/16 20:45 108 20 131/90 95 Nasal Cannula 2 06/05/16 20:30 101 20 144/80 94 Nasal Cannula 2 06/05/16 20:25 97.5 99 20 137/91 97 Nasal Cannula 2 06/05/16 12:14 99.0 62 16 103/56 94 06/05/16 11:38 67 I/O 06/05/16 06/05/16 06/05/16 06/06/16 06/06/16 06/06/16 07:00 15:00 23:00 07:00 15:00 23:00 Intake Total 376 ml 1100 ml Output Total 500 ml 75 ml Balance -124 ml 1025 ml Intake IV Total 376 ml 100 ml Other 1000 ml Output Urine Total 500 ml Estimated Blood Loss 75 ml Result Diagram: 06/06/16 0420 06/06/16 0420 Imaging Last Impressions Foot X-Ray 06/05/16 0000 Signed Impressions: Service Date/Time: Sunday, June 05, 2016 21:50 - CONCLUSION: 1. Extensive plate and screw fixation of the calcaneus with near anatomic alignment at the fracture sites. Ravi Casiano MD Head CT 06/04/161622 Signed Impressions: Service Date/Time: Saturday, June 04, 2016 16:42 - CONCLUSION: 1. No acute intracranial abnormality identified. Mervin George MD Ankle X-Ray 06/04/161622 Signed Impressions: Service Date/Time: Saturday, June 04, 2016 16:36 - CONCLUSION: 1. Comminuted fracture of the calcaneus Gabriel Mejia MD Tibia/Fibula X-Ray 06/04/16 0000 Signed Impressions: Service Date/Time: Saturday, June 04, 2016 17:25 - CONCLUSION: Negative examination of the tibia and fibula. 1. Gabriel Mejia MD Lumbar Spine X-Ray 06/04/16 0000 Signed Impressions: Service Date/Time: Saturday, June 04, 2016 17:18 - CONCLUSION: 1. There is no evidence of acute fracture. Gabriel Mejia MD Lower Extremity CT 06/04/16 0000 Signed Impressions: Service Date/Time: Saturday, June 04, 2016 17:28 - CONCLUSION: Comminuted calcaneal fractures involving all 3 facets, and anterior body, and posterior body. Robbin Boggs MD Femur X-Ray 06/04/16 0000 Signed Impressions: Service Date/Time: Saturday, June 04, 2016 17:19 - CONCLUSION: 1. Negative examination of the femur. Gabriel Mejia MD Objective Remarks GENERAL: Well-developed well-nourished. In no acute distress. SKIN: Warm and dry. Contusion above the left eyebrow. HEENT: Normocephalic. Pupils equal and round. Mucous membranes pink and moist. CARDIOVASCULAR: Regular rate and rhythm. No murmur appreciated. RESPIRATORY: No accessory muscle use. Clear to auscultation. Breath sounds equal bilaterally. GASTROINTESTINAL: Abdomen soft, non-tender, nondistended. Bowel sounds x4. MUSCULOSKELETAL: Right [id number] splint with a surgical dressing and Donald wrap and drain in place. No clubbing or cyanosis. No edema. NEUROLOGICAL: Awake and alert. No focal neurological deficits. Moves upper and lower extremities spontaneously. Normal speech. PSYCHIATRIC: Appropriate mood and affect; insight and judgment normal. A/P Problem List: (1) Right calcaneal fracture ICD Code: S92.001A Status: Acute Assessment and Plan 60-year-old male with no significant past medical history who presented with fall after his back porch collapsed and admitted with right calcaneal fracture Comminuted right calcaneal fracture: Seen on imaging. Podiatry, Dr. Tinoco, consulted and performed operative repair 06/05. NWB RLE. Oral oxycodone and IV morphine for pain control. PT/OT, follow-up per surgical recommendations. Mechanical fall: [employer] imaging unremarkable including head CT unremarkable, except for calcaneal fracture as above. Pain control as needed. DVT prophylaxis: SCDs for now. Will consider Lovenox for DVT prophylaxis starting 06/07/2016. Written by Derrick Davis, acting as scribe for Dr. Tao on 06/06/16 at 10:30. All or portions of this note were transcribed by scribe SANDRA Chacko. I, Dr. Acosta Tao personally performed the history, physical exam, and medical decision making; and confirmed the accuracy of the information in the transcribed note. Authenticated by Dr. Acosta Tao on 06/07/16 at 00:12. Discharge Planning senior relationship manager consulted for assistance with discharge disposition and outpatient follow-up. Follow-up podiatry recommendations. Problem Qualifiers (1) Right calcaneal fracture: Qualified Code: S92.014A - Closed nondisplaced fracture of body of right calcaneus, initial encounter Derrikc Davis Jun 06, 2016 10:30 Aaliyah Tao DO Jun 07, 2016 00:12
[2016-06-06] MEDS ORDERED: POLYETHYLENE GLYCOL 17 GM PKG PO PRN (12:15)
--- NOTE | 2016-06-06 15:53 | PD.POD ---
Subjective Podiatric Problems POD #1 right calcaneal ORIF with incisional wound VAC. Patient reports moderate pain, but tolerable. He did well with PT. He denies any n/v/f/h/c/sob. Pain score: 5 Past Med/Surg/Social History Social History Smoking Status: Current Every Day Smoker Objective Vital Signs Vital Signs Date Time Temp Pulse Resp B/P Pulse Ox O2 Delivery O2 Flow Rate FiO2 06/06/16 12:00 97.6 103 16 125/74 96 06/06/16 08:28 92 21 06/06/16 08:00 99.9 87 16 122/76 95 06/06/16 05:54 80 06/06/16 04:59 98.2 87 18 119/71 94 06/05/16 23:43 98.7 89 20 126/76 94 06/05/16 20:55 97.5 108 20 131/90 95 Nasal Cannula 2 06/05/16 20:45 108 20 131/90 95 Nasal Cannula 2 06/05/16 20:30 101 20 144/80 94 Nasal Cannula 2 06/05/16 20:25 97.5 99 20 137/91 97 Nasal Cannula 2 Coded Allergies: No Known Allergies (Verified , 03/10/15) Physical Exam Remarks CFT < 3 secs, 200ml sanginous outcome in VAC canister (all in first 4 hours post op), calf is soft and supple to compression, AROM to the digits is WNL, sensation is intact Assessment & Plan A/P 1) s/p right calc ORIf 06/07/16 -will remove VAC tomorrow and assess incision site, possible d/c tomorrow -will need lovenox and rolling walker at time of d/c -cont to ice and elevate -NWBing RLE -cont current pain medications, will plan to decrease tomorrow in preparation for discharge Harriet Tinoco DPM Jun 06, 2016 15:53
[2016-06-07] VITALS (8 sets, daily range): BP systolic 109–127; BP diastolic 66–71; PULSE 80–93; RESP 17–18; TEMP 97.3–100.2; O2SAT 94–97
[2016-06-07] MEDS: MORPHINE SULFATE 4 MG/ML INJ IV PUSH PRN ×4 (03:32→20:22)
[2016-06-07] MEDS: oxyCODONE/ACETAMINOPHEN 7.5 MG/325 MG TAB PO PRN ×4 (05:43→22:04)
[2016-06-07] MEDS: SODIUM CHLOR 0.9% 1000 ML INJ 1,000 ML IV SCH ×2 (06:23→16:23)
[2016-06-07] MEDS: ENOXAPARIN SODIUM 40 MG/0.4 ML SYRINGE SQ SCH (08:39)
[2016-06-07] MEDS: SODIUM CHLORIDE 0.9% FLUSH 10 ML FLUSH IV FLUSH SCH ×2 (08:39→20:23)
[2016-06-07] MEDS ORDERED: WALKER WHEELS/F1 MIS (11:54)
--- NOTE | 2016-06-07 12:06 | OTEVALIP ---
CLINICAL HISTORY: PATIENT IS A 55 Y/O Male REFERRED TO OCCUPATIONAL THERAPY BY WITH A DIAGNOSIS OF 813.40 FX LOWER FOREARM. TIME EVALUATION COMPLETED: 10:20 PHYSICIAN ORDER STATES: OCCUPATIONAL THERAPY CONSULT FOR FINGER RANGE OF MOTION. HISTORY OF INJURY/ILLNESS: PATIENT ADMITTED WITH LEFT INTRA-ARTICULAR COLLES FRACTURE AND OLD MALUNION; UNDERWENT LEFT OPEN REDUCTION INTERNAL FIXATION INCLUDING OSTEOTOMY FOR CORRECTION OF MALUNION AND OLD COLLES FRACTURES. PAST MEDICAL/SURGICAL HISTORY: PER CHART PRIOR LEVEL OF FUNCTION: INDEPENDENT FALLS: DENIES CURRENT EQUIPMENT USE: SPLINT WITH ACEWRAP LEFT WRIST/ARM/ELBOW; AWAITING FOR A CAST TO BE PUT ON THIS MORNING. PRECAUTIONS: __ NONE __ CARDIAC __ TOTAL HIP __ FALLS __ BACK __ SEIZURE __ HOB FLAT __ PENDULUM __X OTHER: SPLINT LEFT UPPER EXTREMITY PAIN: REPORTS 07/10; ASKING NURSE FOR PAIN MEDS. OBJECTIVE: CURRENT LEVEL OF FUNCTION: SEATED IN CHAIR. PRESENT COGNITIVE: ALERTNESS ATTENTION SPAN COMPREHENSION AND RECALL X Alert X Intact Follows simple commands Drowsy Mildly Distracted X Follows complex commands Lethargic Easily Distracted Follows commands inconsistently Responds to noxious stimulation Unable to attend to given task Follows no commands Unresponsive ORIENTATION MEMORY COMMUNICATION X Person X Place SHORT TERM MEMORY Intubated / Trach X Day X Month X Intact C Clear X Year X Insight to disability Impaired Slurred speech X Birthday Poor insight to disability Nonverbal Hard of Hearing Impaired/unintelligible [facility] MEMORY Aphasia Expressive X Intact Receptive Impaired Global Comments: PERCEPTUAL: Comments: DEFERRED. UPPER EXTREMITY STATUS: Hand dominance: Right _X_ Left ___ Unknown ___ RANGE OF MOTION MUSCLE STRENGTH GROSS COORDINATION RIGHT LEFT AROM RIGHT LEFT RIGHT LEFT X Within normal limits X Normal (5) X Intact Within functional limits Good (4) Mildly Impaired X Decreased Fair (3) Severely Impaired Spontaneous movements Poor (2) Tremors present Absent Trace (1) Finger to Nose PROM Absent (0) Intact WFL X Not Applicable Impaired Decreased MUSCLE TONE SENSATION FINE MOTOR RIGHT LEFT RIGHT LEFT RIGHT LEFT X X Normal X Intact X Intact Flaccid Impaired light touch Mildly Impaired Decreased Tone Impaired proprioception Severely Impaired Increased spasticity Complaint of numbness Subluxation Complaint of tingling X No Complaint Edema Unable to Assess Comments: LEFT ARM IN LONG ARM SPLINT WITH ACEWRAP. Moura: 1 2 3 4 5 6 7 8 MOURA: (1) Total assist (2) Maximal assist (3) Moderate assist (4) Minimal Contact assist (5) Supervision/Setup (6) Modified independence (7) Complete independence (8) Not tested FUNCTIONAL MOBILITY Rolling in bed X Moving from supine to short sit X Moving from short sit to supine X Transfer from sit to stand X Transfer from bed to chair X Transfer from chair to bed X Stretcher chair transfer X ACTIVITIES OF DAILY LIVING Feeding X Grooming X Dressing upper body X Dressing lower body X Toileting X Bathing X Environmental Controls X Comments: EDUCATION: Occupational Therapy Intervention & Plan of Care: INSTRUCTED PATIENT IN RANGE OF MOTION EXERCISES LEFT UPPER EXTREMITY DIGITS. ENCOURAGED ICE AND ELEVATION TO ASSIST WITH EDEMA CONTROL. MODERATE EDEMA IN DIGITS. Patient Family __ __ Patient presented with good understanding _X_ __ Will require re-education __ __ Unable to educate ASSESSMENT: PRESENTS WITH DECREASED LEFT UPPER EXTREMITY FUNCTION SECONDARY TO RECENT SURGERY AND NEED FOR SPLINT. DEMONSTRATES GOOD UNDERSTANDING OF EXERCISS FOR DIGITS. IS TO BE DISCHARGED HOME TODAY. PLAN: DISCHARGE RECOMMENDATION/ATTENTION CASE MANAGEMENT: __ Goals, rehabilitation potential, and treatment plan not applicable to this patient __ OT treatment not indicated - OT signs off __ retirement facility __ Rehab setting _X_ Outpatient setting __ Home therapy __ Other: __Recommended equipment: DISABILITY ELEMENTS SCORE FOR FEEDIN INTERDISCIPLINARY COMMUNICATION: ELECTRONIC MEDICAL RECORD REVIEWED. REHABILITATION POTENTIAL: _X_ Good __ Fair __ Guarded BARRIERS TO ATTAINING GOALS: _C_ None __ Decrease level of alertness __ Pain __ Need of Intensive Care __ Cognitive deficits __ Ventilator __ Other: GOALS: STGs: MET WITHIN THIS SESSION; PATIENT DEMONSTRATES INDEPENDENCE IN HOME EXERCISES FOR DIGIT RANGE OF MOTION, ELEVATION AND EDEMA MANAGEMENT. LTGs: MAXIMIZE LEFT UPPER EXTREMITY FUNCTION FOR INDEPENDENCE IN SELF CARE. FREQUENCY: _X_ 1/2 x Week __ 3/5 x Weeks __ Other: DURATION: __ 1 Weeks __ 2 Weeks __ 4 Weeks _X_ Length of Stay Patient or Family participated in development of goals and plan of care: _X_ Yes __ No __ Unable _X_ Goal(s): AGREES WITH GOALS TREATMENT PLAN (MODALITIES): _X_ Patient/family education _X_ Activities of daily living __ Therapeutic activities _X_ Therapeutic exercises Therapist: SAMANTHA SEWELL OT/L Signature on file
--- NOTE | 2016-06-07 12:43 | HHI.PR ---
Subjective Remarks Follow up for right calcaneal fracture. The patient reports continued right foot /ankle pain, only temporarily relieved by percocet. Otherwise he is doing well, no chest pain, shortness of breath, or abdominal complaints. He wants to go home tomorrow. He states he has 12 stairs to go up when he gets home. Objective Vitals Vital Signs Date Time Temp Pulse Resp B/P Pulse Ox O2 Delivery O2 Flow Rate FiO2 06/07/16 12:00 97.4 82 18 111/66 96 06/07/16 09:46 96 21 06/07/16 08:00 98.1 93 17 115/71 95 06/07/16 04:03 100.2 93 18 112/67 96 06/07/16 00:07 97.3 86 18 110/69 95 06/06/16 21:53 95 21 06/06/16 20:27 102 06/06/16 20:09 97.9 103 18 121/69 96 06/06/16 17:36 86 06/06/16 16:00 99.5 97 16 117/66 96 I/O 06/06/16 06/06/16 06/06/16 06/07/16 06/07/16 06/07/16 07:00 15:00 23:00 07:00 15:00 23:00 Intake Total 720 ml 360 ml 480 ml Output Total 600 ml 600 ml Balance 120 ml 360 ml -120 ml Intake Oral 720 ml 360 ml 480 ml Output Urine Total 600 ml 600 ml # Voids 1 # Bowel Movements 0 0 0 Result Diagram: 06/06/16 0420 06/06/16 0420 Imaging Last Impressions Foot X-Ray 06/05/16 0000 Signed Impressions: Service Date/Time: Sunday, June 05, 2016 21:50 - CONCLUSION: 1. Extensive plate and screw fixation of the calcaneus with near anatomic alignment at the fracture sites. Ravi Casiano MD Head CT 06/04/161622 Signed Impressions: Service Date/Time: Saturday, June 04, 2016 16:42 - CONCLUSION: 1. No acute intracranial abnormality identified. Mervin George MD Ankle X-Ray 06/04/161622 Signed Impressions: Service Date/Time: Saturday, June 04, 2016 16:36 - CONCLUSION: 1. Comminuted fracture of the calcaneus Gabriel Mejia MD Tibia/Fibula X-Ray 06/04/16 0000 Signed Impressions: Service Date/Time: Saturday, June 04, 2016 17:25 - CONCLUSION: Negative examination of the tibia and fibula. 1. Gabriel Mejia MD Lumbar Spine X-Ray 06/04/16 0000 Signed Impressions: Service Date/Time: Saturday, June 04, 2016 17:18 - CONCLUSION: 1. There is no evidence of acute fracture. Gabriel Mejia MD Lower Extremity CT 06/04/16 0000 Signed Impressions: Service Date/Time: Saturday, June 04, 2016 17:28 - CONCLUSION: Comminuted calcaneal fractures involving all 3 facets, and anterior body, and posterior body. Robbin Boggs MD Femur X-Ray 06/04/16 0000 Signed Impressions: Service Date/Time: Saturday, June 04, 2016 17:19 - CONCLUSION: 1. Negative examination of the femur. Gabriel Mejia MD Objective Remarks GENERAL: Well-developed well-nourished middle aged male in [facility]. SKIN: Warm and dry. Contusion above the left eyebrow. HEENT: Normocephalic. Pupils equal and round. Mucous membranes pink and moist. CARDIOVASCULAR: Regular rate and rhythm. No murmur appreciated. RESPIRATORY: No accessory muscle use. Clear to auscultation. Breath sounds equal bilaterally. GASTROINTESTINAL: Abdomen soft, non-tender, nondistended. Bowel sounds x4. MUSCULOSKELETAL: Right lower extremity splint with a surgical dressing, Dnoald wrap , and vac in place. No clubbing or cyanosis. No edema. NEUROLOGICAL: Awake and alert. No focal neurological deficits. Moves upper and lower extremities spontaneously. Normal speech. PSYCHIATRIC: Appropriate mood and affect; insight and judgment normal. Medications and IVs Current Medications Medications (Trade) Dose Ordered Sig/Donell Route Start Time Stop Time Status Last Admin (NS 1000 ml Inj) 1,000 ml @ 100 mls/hr Q10H IV 06/04/16 18:23 06/06/16 01:58 (NS Flush) 2 ml UNSCH PRN IV FLUSH 06/04/16 18:30 (NS Flush) 2 ml BID IV FLUSH 06/04/16 21:00 06/07/16 08:39 (Tylenol) 650 mg Q4H PRN PO 06/04/16 18:30 06/04/16 20:33 (Zofran Inj) 4 mg Q6H PRN IVP 06/04/16 18:30 06/04/16 21:29 (Milk Of Magnesia Liq) 30 ml Q12H PRN PO 06/04/16 18:30 (Morphine Inj) 4 mg Q3H PRN IV PUSH 06/05/16 20:30 06/07/16 03:32 (Percocet 7.5-325 Mg) 2 tab Q4H PRN PO 06/05/16 20:30 06/07/16 09:50 Polyethylene Glycol 17 gm 17 gm DAILY PRN PO 06/06/16 12:15 (Ancef Inj/NS Inj) 100 ml @ 200 mls/hr Q8H IV 06/06/16 12:00 06/07/16 03:32 (Lovenox Inj) 40 mg Q24H SQ 06/07/16 09:00 06/07/16 08:39 Urinary Catheter: No Vascular Central Line Catheter: No A/P Problem List: (1) Right calcaneal fracture ICD Code: S92.001A Status: Acute Assessment and Plan 60-year-old male with no significant past medical history who presented with fall after his back porch collapsed and admitted with right calcaneal fracture Comminuted right calcaneal fracture: Seen on imaging. Podiatry Dr. Tinoco, consulted and performed operative repair on 06/05. NWB RLE. Oral oxycodone and IV morphine for pain control. PT/OT, recommends walker and HHC however patient is self pay. Needs DVT prophylaxis at discharge, on Lovenox for now, plan for Xarelto at discharge. Surgery to follow up today, likely plan to remove drain. Plan for discharge tomorrow. Mechanical fall: [employer] imaging unremarkable including head CT unremarkable, except for calcaneal fracture as above. Pain control as needed. DVT prophylaxis: Lovenox Written by Shital Jeong, acting as scribe for Dr. aTo on 06/07/16 at 12:05. All or portions of this note were transcribed by scribe SANDRA Colvin. I , Dr. Acosta Tao personally performed the history, physical exam, and medical decision making; and confirmed the accuracy of the information in the transcribed note. Authenticated by Dr. Acosta Tao on 06/07/16 at 17:53. Discharge Planning Likely discharge tomorrow. Problem Qualifiers (1) Right calcaneal fracture: Qualified Code: S92.014A - Closed nondisplaced fracture of body of right calcaneus, initial encounter Shital Jeong PA-C Jun 07, 2016 12:43 pm Aaliyah Tao DO Jun 07, 2016 5:53 pm
--- NOTE | 2016-06-07 19:11 | MP ---
cc: RODO TINOCO DATE OF SURGERY: 06/05/2016 PREOPERATIVE DIAGNOSIS: Right calcaneal comminuted fracture. POSTOPERATIVE DIAGNOSIS: Right calcaneal comminuted fracture. OPERATIVE PROCEDURE PERFORMED: Right open calcaneal open reduction internal fixation. SURGEON Dr. Rodo Tinoco. SOCK DRIER: Dr. Kareem Garcia. PATHOLOGY SENT: None. ANESTHESIA: General. HEMOSTASIS: Pneumatic thigh tourniquet at 325 mmHg. ESTIMATED BLOOD LOSS: 20 mL. INJECTABLES: 10 cc of 0.5% Marcaine plain. MATERIALS USED: Synthes plate and screws assortment of sizes, 4.0 and 3.0 primarily. 3-0 Monocryl. 3-0 Prolene. A I wound VAC. INDICATIONS FOR THE PROCEDURE: Mr. León is a 60-year-old male patient who fell from a [employer] yesterday afternoon. After exam and CT scan and xrays it was obvious that he had a highly comminuted intraarticular fracture that needed to be surgically fixated for the best jail outcome. I reviewed the consent and the procedure with the patient as well as postoperative recovery and he was agreeable to the procedure. The consent was signed. The procedure was explained. No guarantees were given. DESCRIPTION OF THE PROCEDURE IN DETAIL: Under mild sedation the patient was brought into the operating room and placed on the operating room table in the supine position with a lateral hip bump. A thigh tourniquet was placed around the right thigh. The leg was then scrubbed, prepped and draped in the usual aseptic manner. An Esmarch bandage was used to exsanguinate the right lower extremity and a lateral extensile incision was created through skin and deepened through the skin and subcutaneous tissue with care being taken to identify and retract any vital neurovascular structures. Dr. Kareem Garcia was present throughout the entire case and his skill set was needed in order to allow for anatomical reduction and fixation within a timely manner as the sterile instrument technician was not highly familiar with the hardware and was busy with hardware on the back table during the duration of the case. Once the entire calcaneus was exposed, the lateral wall was removed to reveal comminuted widened and shortened calcaneus. A large Steinmann pin was thrown from lateral to medial through the tuberosity of the calcaneus and was used to allow freedom of the pieces as well as placement. An assortment of techniques including bone claps, [place] elevators, and manual manipulation were used to reduce the large fracture fragment for better alignment allowing a seamless continuation of the cartilage which had been disrupted. Once the temporary fixation was in place and acceptable, radiographs were taken to confirm anatomical alignment in the absence of any varus or valgus deformity of the hindfoot. Once we were happy with the alignment and replacement of the fragments, the central large bone void was filled with DBX putty as well as cancellous bone chips. The lateral wall was then re-applied. Two cannulated 4.0 screws were used for scaffolding screws from lateral to medial on the anterior calcaneus just beneath the cartilaginous surface. The plate was then applied and proper hardware was inserted through the plate. There was excellent reduction noted and excellent purchase of the plate and screws. The screws and plates were then again visualized under fluoroscopy and noted to be in anatomical alignment. The area was flushed with copious amounts of sterile saline. The flap was closed with 3-0 Vicryl deep and then 3-0 Monocryl for skin and an incisional wound VAC dressing was applied in 75 mmHg. There was a prompt hyperemic response to all digits of the right foot once the tourniquet was released. The patient tolerated the procedure and the anesthesia well. Prior to the wound VAC being turned on, 10 cc of 0.5% Marcaine plain was injected around the sural nerve. The patient will recover in the post-anesthesia care unit for a period of time before being discharged back to his room with written and oral postoperative instructions. Rodo DAVIDSON/JOHN /8:26 PM /6:59 PM NAVA
[2016-06-07] MEDS ORDERED: MORPHINE SULFATE 4 MG/ML INJ IV PUSH PRN (21:45)
--- NOTE | 2016-06-07 21:45 | PD.POD ---
Subjective Podiatric Problems POD #2 right calcaneal ORIF with incisional wound VAC. Patient reports moderate pain, but tolerable. He feels ready for discharge tomorrow. He denies any n/v/f/ h/c/sob. Pain score: 5 Past Med/Surg/Social History Social History Smoking Status: Current Every Day Smoker Objective Vital Signs Vital Signs Date Time Temp Pulse Resp B/P Pulse Ox O2 Delivery O2 Flow Rate FiO2 06/07/16 19:20 80 06/07/16 16:00 100.2 86 18 127/69 94 06/07/16 12:00 97.4 82 18 111/66 96 06/07/16 09:46 96 21 06/07/16 08:00 98.1 93 17 115/71 95 06/07/16 04:03 100.2 93 18 112/67 96 06/07/16 00:07 97.3 86 18 110/69 95 06/06/16 21:53 95 21 Coded Allergies: No Known Allergies (Verified , 03/10/15) Physical Exam Remarks Incisional wound VAC removed, incision site is well coapted with all sutures intact, mild sanginous drainage, mild masceration. Moderate edema. Calf is supple and nontender to compression. AROM of digits WNL. Gross sensation intact. Assessment & Plan A/P 1) s/p right calc ORIf 06/07/16 -keep splint clean, dry, and intact -cont to ice and elevate -NWBing RLE -pain medications reduced in preparation for discharge tomorrow -follow up in office 1 week after discharge Harriet Tinoco DPM Jun 07, 2016 21:45
[2016-06-08 00:05] VITALS: BP 95/55; PULSE 86; RESP 17; TEMP 98; O2SAT 97
[2016-06-08 08:00] VITALS: BP 121/73; PULSE 91; RESP 19; TEMP 98.8; O2SAT 95
[2016-06-08] MEDS: ENOXAPARIN SODIUM 40 MG/0.4 ML SYRINGE SQ SCH (08:09)
[2016-06-08] MEDS: oxyCODONE/ACETAMINOPHEN 7.5 MG/325 MG TAB PO PRN (08:09)
[2016-06-08] MEDS: SODIUM CHLORIDE 0.9% FLUSH 10 ML FLUSH IV FLUSH SCH (08:10)
[2016-06-08] MEDS ORDERED: PERC10TA27 PO (08:59)
[2016-06-08] MEDS ORDERED: CRUTMIS3 (09:00)
--- NOTE | 2016-06-08 09:02 | HHI.DS ---
Discharge Summary Admission Date Jun 04, 2016 at 6:30 pm Discharge Date: Jun 08, 2016 Admitting Diagnosis right calcaneal fracture (1) Right calcaneal fracture ICD Code: S92.001A Procedures None. Brief History - From Admission patient is a 60 y/o male who presented to ER with pain to the right ankle after he fell at home. he says that he was working on his porch when he suddenly fell. he denies any prodromal symptoms prior to the fall including chest pain, sob, or dizziness. he didn't pass out but he hit his head on the floor. he was found to have right ankle fracture. other than pain to the right ankle he denies any other complaints. CBC/BMP: 06/06/16 0420 06/06/16 0420 Significant Findings Laboratory Tests Test 06/06/16 04:20 White Blood Count 11.8 TH/MM3 (4.0-11.0) Red Blood Count 4.44 MIL/MM3 (4.50-5.90) Hematocrit 38.5 % (39.0-51.0) Monocytes (%) (Auto) 11.0 % (0.0-8.0) Neutrophils # (Auto) 7.8 TH/MM3 (1.8-7.7) Monocytes # (Auto) 1.3 TH/MM3 (0-0.9) Sodium Level 135 MEQ/L (136-145) Estimat Glomerular Filtration 76 ML/MIN (>89) Rate Calcium Level 8.3 MG/DL (8.5-10.1) Imaging Last Impressions Foot X-Ray 06/05/16 0000 Signed Impressions: Service Date/Time: Sunday, June 05, 2016 21:50 - CONCLUSION: 1. Extensive plate and screw fixation of the calcaneus with near anatomic alignment at the fracture sites. Ravi Casiano MD Head CT 06/04/161622 Signed Impressions: Service Date/Time: Saturday, June 04, 2016 16:42 - CONCLUSION: 1. No acute intracranial abnormality identified. Mervin George MD Ankle X-Ray 06/04/161622 Signed Impressions: Service Date/Time: Saturday, June 04, 2016 16:36 - CONCLUSION: 1. Comminuted fracture of the calcaneus Gabriel Mejia MD Tibia/Fibula X-Ray 06/04/16 0000 Signed Impressions: Service Date/Time: Saturday, June 04, 2016 17:25 - CONCLUSION: Negative examination of the tibia and fibula. 1. Gabriel Mejia MD Lumbar Spine X-Ray 06/04/16 0000 Signed Impressions: Service Date/Time: Saturday, June 04, 2016 17:18 - CONCLUSION: 1. There is no evidence of acute fracture. Gabriel Mejia MD Lower Extremity CT 06/04/16 0000 Signed Impressions: Service Date/Time: Saturday, June 04, 2016 17:28 - CONCLUSION: Comminuted calcaneal fractures involving all 3 facets, and anterior body, and posterior body. Robbin Boggs MD Femur X-Ray 06/04/16 0000 Signed Impressions: Service Date/Time: Saturday, June 04, 2016 17:19 - CONCLUSION: 1. Negative examination of the femur. Gabriel Mejia MD PE at Discharge GENERAL: Well-developed well-nourished middle aged male in [facility]. SKIN: Warm and dry. Contusion above the left eyebrow. HEENT: Normocephalic. Pupils equal and round. Mucous membranes pink and moist. CARDIOVASCULAR: Regular rate and rhythm. No murmur appreciated. RESPIRATORY: No accessory muscle use. Clear to auscultation. Breath sounds equal bilaterally. GASTROINTESTINAL: Abdomen soft, non-tender, nondistended. Bowel sounds x4. MUSCULOSKELETAL: Right lower extremity splint with a surgical dressing, Donald wrap , and vac in place. No clubbing or cyanosis. No edema. NEUROLOGICAL: Awake and alert. No focal neurological deficits. Moves upper and lower extremities spontaneously. Normal speech. PSYCHIATRIC: Appropriate mood and affect; insight and judgment normal. Pt update on day of discharge Mr. León is doing well. No acute concerns. No fever, chills. Hospital Course 60-year-old male with no significant past medical history who presented with fall after his back porch collapsed and admitted with right calcaneal fracture Comminuted right calcaneal fracture: Seen on imaging. Podiatry Dr. Tinoco, consulted and performed operative repair on 06/05. NWB RLE. Oral oxycodone and IV morphine for pain control in the hospital, Percocet on discharge. Per Podiatry, patient needs DVT prophylaxis at discharge, on Lovenox for now, plan for Xarelto at discharge. Mechanical fall: [employer] imaging unremarkable including head CT unremarkable, except for calcaneal fracture as above. Pain control as needed. All questions answered. Patient verbalized understanding. Discussed with patient about [employer] [email or web address] for help with medications. Written by Shital Jeong, acting as scribe for Dr. Tao on 06/08/16 at 0909. All or portions of this note were transcribed by scribe SANDRA Colvin. I , Dr. Acosta Tao personally performed the history, physical exam, and medical decision making; and confirmed the accuracy of the information in the transcribed note. Authenticated by Dr. Acosta Tao on 06/08/16 at 23:07. Pt Condition on Discharge: Good Discharge Disposition: Discharge Home Discharge Time: <= 30 minutes Discharge Instructions DIET: Follow Instructions for: As Tolerated, No Restrictions Activities you can perform: Non Weight Bearing Other Activity Instructions: Non weight bearing Right lower extremity. -keep splint clean, dry, and intact -cont to ice and elevate Follow up Referrals: Podiatry - 1 Week with Harriet Tinoco DPM New Medications: Crutch Set/Wood/Adult (Crutch Set/Wood/Adult) 1 Mis Mis 1 EA .ROUTE DIRECTED #1 EA Oxycodone-Acetaminophen (Percocet) 10-325 mg Tab 1 TAB PO Q4H PRN PAIN #40 Ref 0 TAB Rivaroxaban (Xarelto) 10 Mg Tab 10 MG PO DAILY Blood Clot Prevention #12 Ref 0 TAB Walker with Front Wheels (Walker with Front Wheels) 1 Mis Mis 1 EA .ROUTE DIRECTED #1 Ref 0 EA Aaliyah Tao DO Jun 08, 2016 09:01
[2016-06-08] MEDS ORDERED: XARE10TA PO (09:06)
== END 2016-06-08 11:45 | disposition home or self-care (01) ==
LOC: NEPC 16:14 → NEDH 18:30 → NEPFCDU 23:00 → N06A 06-06 18:43
PROVIDERS: ADMIT Hospitalist; ATTEND Hospitalist
DX: S92.014A Nondisplaced fracture of body of right calcaneus, initial encounter for closed fracture (principal); F17.200 Nicotine dependence, unspecified, uncomplicated; W13.0XXA Fall from, out of or through balcony, initial encounter; Y93.H2 Activity, gardening and landscaping; Z23 Encounter for immunization
CPT/HCPCS: 01480; 28415; 70450; 72100; 73552; 73590; 73610; 73630; 73650; 73700; 76000; 80048; 80053; 82948; 85025; 85610; 85730; 90471; 90686; 90714; 90732; 93005; 96374; 96375; 97110; 97116; 97163; 97166; 97530; 99285; C1713; G0378; G8987; G8988; J0690; J1170; J1650; J2250; J2270; J2370; J2405; J3010; J7030; J7120; Q2038

== ENCOUNTER 2016-09-25 11:20 | Emergency (ER) | payer SELFPAY ==
[~2016-09-25 11:20] MED LIST changes: +CRUTMIS3; +PERC10TA27 PO; +WALKER WHEELS/F1 MIS; +XARE10TA PO; -ZITH250T PO
[2016-09-25 11:22] VITALS: BP 114/60; PULSE 106; RESP 20; TEMP 98.8; O2SAT 95
[2016-09-25] MEDS ORDERED: ULTR50TA5 PO (18:41)
== END 2016-09-25 11:43 | disposition left against medical advice (07) ==
LOC: NED 11:20
DX: H57.10 Ocular pain, unspecified eye (principal); Z53.21 Procedure and treatment not carried out due to patient leaving prior to being seen by health care provider
CPT/HCPCS: 99281

== ENCOUNTER 2016-09-25 14:02 | Emergency (ER) | payer SELFPAY ==
[~2016-09-25] VITALS: Ht 188 cm; Wt 86.0 kg
[2016-09-25 14:04] VITALS: BP 107/70; PULSE 78; RESP 20; TEMP 98.7; O2SAT 97
--- NOTE | 2016-09-25 18:28 | PD ---
HPI Chief Complaint: Pain: Acute or Chronic Time Seen by Provider: 18:00 Travel History International Travel<30 days: No Contact w/Intl Traveler<30days: No Traveled to known affect area: No History of Present Illness HPI 61-year-old male presents emergency department for evaluation of right eye pain times 2 weeks. Patient reports approximately 14 days ago he developed right eye pain associated with blurred vision. He saw his belly roller Dr. Schaeffer and retinal specialist Dr. Gresham who diagnosed him with a retinal tear. He reports he has had continued pain in the right eye. He is currently on atropine and steroid drops. He has follow-up with Dr. Gresham in 2 days. He reports he called the office today to let them know he had continued pain and the nurse told him to come to the emergency department for evaluation of possible sinusitis. He does not endorse worsening pain or worsening vision. He is adamant that the pain and vision have been constant for 2 weeks without any change. He denies head injury, eye injury, headache, nasal congestion, nasal drainage, fever or chills. He reports the pain is unrelieved by over-the- counter Aleve. [facility] Past Medical History Anxiety: Yes Cancer: No Cardiovascular Problems: No Diminished Hearing: No Endocrine: No Gastrointestinal Disorders: Yes Genitourinary: No Immune Disorder: No Musculoskeletal: No Neurologic: No Psychiatric: Yes Reproductive: No Respiratory: No Past Surgical History Ear Surgery: Yes (ILENE. MYRINGOTOMIES) Oral Surgery: Yes (T & A) Tonsillectomy: Yes Tympanostomy Tube: Yes Other Surgery: Yes Social History Alcohol Use: No Tobacco Use: Yes (1 PK PER WEEK) Substance Use: No Allergies-Medications (Allergen,Severity, Reaction): Coded Allergies: No Known Allergies (Verified , 09/25/16) Reported Meds & Prescriptions Reported Meds & Active Scripts Active Ultram (Tramadol HCl) 50 Mg Tab 50 Mg PO Q6H PRN Xarelto (Rivaroxaban) 10 Mg Tab 10 Mg PO DAILY Crutch Set/Wood/Adult (Device) 1 Mis Mis 1 Ea .ROUTE DIRECTED Percocet (Oxycodone-Acetaminophen) 10-325 mg Tab 1 Tab PO Q4H PRN Walker with Front Wheels (Device) 1 Mis Mis 1 Ea .ROUTE DIRECTED Review of Systems Except as stated in HPI: all other systems reviewed are Neg General / Constitutional: No: Fever Eyes: Positive: Blurred Vision HENT: No: Headaches Cardiovascular: No: Chest Pain or Discomfort Respiratory: No: Shortness of Breath Gastrointestinal: No: Abdominal Pain Genitourinary: No: Dysuria Musculoskeletal: No: Pain Physical Exam Narrative GENERAL: [Alert, well-appearing male in no acute distress.] SKIN: Focused skin assessment warm/dry. HEAD: Atraumatic. Normocephalic. EYES: Pupils equal and round. No scleral icterus. No drainage. Right eye: Mildly injected, 3 mm round sluggishly reactive pupil, corneas clear, EOMs intact, visual chaudhary intact, IOP 12, no forcing dye uptake, visual acuity 20/ 200 without contact lens ENT: No nasal bleeding or discharge. Mucous membranes pink and moist. No sinus tenderness NECK: Trachea midline. No JVD. CARDIOVASCULAR: Regular rate and rhythm. No murmur appreciated. RESPIRATORY: No accessory muscle use. Clear to auscultation. Breath sounds equal bilaterally. GASTROINTESTINAL: Abdomen soft, non-tender, nondistended. Hepatic and splenic margins not palpable. MUSCULOSKELETAL: No obvious deformities. No clubbing. No cyanosis. No edema. NEUROLOGICAL: Awake and alert. No obvious cranial nerve deficits. Motor grossly within normal limits. Normal speech. PSYCHIATRIC: Appropriate mood and affect; insight and judgment normal. Data Data Last Documented VS Vital Signs Date Time Temp Pulse Resp B/P Pulse Ox O2 Delivery O2 Flow Rate FiO2 09/25/16 14:04 98.7 78 20 107/70 97 Room Air Orders Ketorolac Inj (Toradol Inj) (09/25/16 18:45) MDM Medical Decision Making Medical Screen Exam Complete: Yes Emergency Medical Condition: Yes Differential Diagnosis Differential diagnosis include but are not limited to Known retinal tear, eye pain, acute angle-closure glaucoma, unlikely retrobulbar hematoma, corneal abrasion, corneal ulcer Narrative Course 61-year-old male presents emergency department for evaluation of right eye pain times 2 weeks. Patient reports approximately 14 days ago he developed right eye pain associated with blurred vision. He saw his belly roller Dr. Schaeffer and retinal specialist Dr. Gresham who diagnosed him with a retinal tear. He reports he has had continued pain in the right eye. He is currently on atropine and steroid drops. He has follow-up with Dr. Gresham in 2 days. He reports he called the office today to let them know he had continued pain and the nurse told him to come to the emergency department for evaluation of possible sinusitis. He does not endorse worsening pain or worsening vision. He is adamant that the pain and vision have been constant for 2 weeks. His physical exam reveal a right mildly injected eye with 3 mm sluggish reactive pupil with 20/200 vision. Patient not currently wearing his contact lenses. Visual chaudhary intact. IOP 12. No fluorescein dye uptake. Corneas clear. He spoke with Dr. Gresham's office who agreed to see the patient tomorrow morning. Given that the patient's chronicity of problem has not changed in 2 weeks and physical exam findings today are not consistent with acute angle closure glaucoma, corneal abrasion, corneal ulcer, retrobulbar hematoma I feel it reasonable to have the patient follow-up in the office tomorrow. He has a known retinal tear. He is compliant with the medications given by the retinal specialist. Patient will be given a shot of Toradol today temperature show for Ultram and instructed to follow up with Dr. Gresham's office tomorrow morning. Patient is agreement to plan. Diagnosis Primary Impression: Eye pain Qualified Code: H57.11 - Eye pain, right Referrals: DR GRESHAM Additional Instructions: Call Dr. Gresham's office tomorrow morning to schedule no pointing. Return to the emergency department if he developed new or worsening symptoms such as severe increasing eye pain or change in vision. Scripts Tramadol (Ultram)50 Mg Tab50 Mg PO Q6H PRN (PAIN) #12 TAB Ref 0 Prov:Britney Chavez 09/25/16 Disposition: 01 DISCHARGE HOME Condition: Stable Britney Chavez Sep 25, 2016 18:28
[2016-09-25] MEDS ORDERED: ULTR50TA5 PO (18:41)
[2016-09-25] MEDS ORDERED: KETOROLAC TROMETHAMINE 60 MG/2 ML (IM) VIAL IM ONE (18:45)
== END 2016-09-25 19:05 | disposition home or self-care (01) ==
LOC: NEPK 14:02
DX: H57.11 Ocular pain, right eye (principal); H53.8 Other visual disturbances; F41.9 Anxiety disorder, unspecified; F17.200 Nicotine dependence, unspecified, uncomplicated; Z79.899 Other long term (current) drug therapy
CPT/HCPCS: 96372; 99284; J1885

== ENCOUNTER 2016-09-30 15:00 | Emergency (ER) | payer SELFPAY ==
[~2016-09-30] VITALS: Ht 188 cm; Wt 85.0 kg
[~2016-09-30 15:00] MED LIST changes: +ULTR50TA5 PO
[2016-09-30 15:02] VITALS: BP 114/67; PULSE 67; RESP 15; TEMP 98.2; O2SAT 98
--- NOTE | 2016-09-30 15:13 | PD ---
Physical Exam Time Seen by Provider: 15:13 Narrative 61 y/o male with 3 weeks R eye pain. Previously saw a retinal specialist about this issue, questionable retinal tear. Vital signs reviewed. Seen at triage desk. Awaiting bed placement. Data Data Last Documented VS Vital Signs Date Time Temp Pulse Resp B/P Pulse Ox O2 Delivery O2 Flow Rate FiO2 09/30/16 15:02 98.2 67 15 114/67 98 MDM Medical Record Reviewed: Yes Supervised Visit with GARIMA: Luis Enrique Abad Sep 30, 2016 15:13
--- NOTE | 2016-09-30 17:26 | PD ---
HPI Chief Complaint: Eye Problems/Injury Time Seen by Provider: 17:05 Travel History International Travel<30 days: No Contact w/Intl Traveler<30days: No Traveled to known affect area: No History of Present Illness HPI The patient is a 61-year-old male who presents to the emergency department for right eye pain. The patient states his symptoms started several weeks ago and he has been seen by his zigzag tunnel elastic operator and his nuclear weapons mechanical specialist, Dr. Montes De Oca. The patient was diagnosed with Vitritis by his nuclear weapons mechanical specialist and placed on cycloplegics and antibiotic drops. The patient states he does not take the cycloplegics because they dilate his pupil and he is unable to see in the light. He has been taking antibiotic drops and has not been wearing his contacts as directed. The patient states his vision is improving, however, he has difficulty seeing without contact lenses in the right eye. He does complain of pain with a dilated pupil of the right eye. He denies any drainage from the eye. He denies any pain with extraocular movements. The patient states he was given a sheet for outpatient testing by his nuclear weapons mechanical specialist, however, states he is unable to afford the blood test and subsequently comes to the emergency department to have the blood test performed. PFSH Past Medical History Anxiety: Yes Cancer: No Cardiovascular Problems: No Diminished Hearing: No Endocrine: No Gastrointestinal Disorders: Yes Genitourinary: No Immune Disorder: No Musculoskeletal: No Neurologic: No Psychiatric: Yes Reproductive: No Respiratory: No Influenza Vaccination: Yes Past Surgical History Ear Surgery: Yes (ILENE. MYRINGOTOMIES) Oral Surgery: Yes (T & A) Tonsillectomy: Yes Tympanostomy Tube: Yes Other Surgery: Yes Social History Alcohol Use: No Tobacco Use: No Substance Use: No Allergies-Medications (Allergen,Severity, Reaction): Coded Allergies: No Known Allergies (Verified , 09/25/16) Reported Meds & Prescriptions Reported Meds & Active Scripts Active Review of Systems Except as stated in HPI: all other systems reviewed are Neg Eyes: Positive: Photophobia, Pain, Other (Right eye symptoms of 2-3 weeks duration), No: Redness, Tearing HENT: Positive: Headaches (headache on the right side associated with his eye pain) Gastrointestinal: No: Nausea, Vomiting Skin: No Rash Physical Exam Narrative GENERAL: Awake, alert, pleasant 61-year-old male who appears his stated age and is in no acute respiratory distress. SKIN: Focused skin assessment warm/dry. HEAD: Atraumatic. Normocephalic. EYES: The right eye is dilated at 5 mm, sluggish, left pupil is 2 mm and reactive. EOMs are intact. He is able to see fingers at a distance of 2 feet without difficulty. Minimal injection to the right eye. ENT: No nasal bleeding or discharge. Mucous membranes pink and moist. NECK: Trachea midline. No JVD. MUSCULOSKELETAL: No obvious deformities. No clubbing. No cyanosis. No edema. NEUROLOGICAL: Awake and alert. No obvious cranial nerve deficits. Motor grossly within normal limits. Normal speech. PSYCHIATRIC: Appropriate mood and affect; insight and judgment normal. Data Data Last Documented VS Vital Signs Date Time Temp Pulse Resp B/P Pulse Ox O2 Delivery O2 Flow Rate FiO2 09/30/16 18:13 69 19 129/66 97 Room Air 09/30/16 15:02 98.2 Orders Complete Blood Count With Diff (09/30/16 17:13) Comprehensive Metabolic Panel (09/30/16 17:13) Angiotensin Converting Enzyme (09/30/16 17:13) Toxoplasma Ab Igg (09/30/16 17:13) Toxoplasma Ag Igm (09/30/16 17:13) Blood Fungus Culture Routine (09/30/16 17:13) Acetamin-Hydrocod 325-5 Mg ([place] 5-325 (09/30/16 18:00) Radha Screen (09/30/16 17:59) Rpr With Reflex To Fta Abs (09/30/16 17:59) Lyme Disease Pcr (09/30/16 17:59) Labs Laboratory Tests Test 09/30/16 17:35 White Blood Count 9.6 TH/MM3 Red Blood Count 4.83 MIL/MM3 Hemoglobin 15.2 GM/DL Hematocrit 42.6 % Mean Corpuscular Volume 88.2 FL Mean Corpuscular Hemoglobin 31.5 PG Mean Corpuscular Hemoglobin 35.7 % Concent Red Cell Distribution Width 12.8 % Platelet Count 237 TH/MM3 Mean Platelet Volume 7.4 FL Neutrophils (%) (Auto) 42.8 % Lymphocytes (%) (Auto) 44.4 % Monocytes (%) (Auto) 11.1 % Eosinophils (%) (Auto) 1.2 % Basophils (%) (Auto) 0.5 % Neutrophils # (Auto) 4.1 TH/MM3 Lymphocytes # (Auto) 4.3 TH/MM3 Monocytes # (Auto) 1.1 TH/MM3 Eosinophils # (Auto) 0.1 TH/MM3 Basophils # (Auto) 0.0 TH/MM3 CBC Comment DIFF FINAL Differential Comment Sodium Level 139 MEQ/L Potassium Level 3.9 MEQ/L Chloride Level 104 MEQ/L Carbon Dioxide Level 29.7 MEQ/L Anion Gap 5 MEQ/L Blood Urea Nitrogen 16 MG/DL Creatinine 1.00 MG/DL Estimat Glomerular Filtration 76 ML/MIN Rate Random Glucose 83 MG/DL Calcium Level 9.0 MG/DL Total Bilirubin 0.5 MG/DL Aspartate Amino Transf 22 U/L (AST/SGOT) Alanine Aminotransferase 42 U/L (ALT/SGPT) Alkaline Phosphatase 114 U/L Total Protein 7.9 GM/DL Albumin 3.7 GM/DL [facility] Medical Decision Making Medical Screen Exam Complete: Yes Emergency Medical Condition: Yes Medical Record Reviewed: Yes Differential Diagnosis Differential diagnosis includes vitritis, iritis, scleritis, episcleritis, endophthalmitis, glaucoma, corneal ulcer, dendritic lesion. Narrative Course The patient has already been evaluated by ophthalmology and has a definitive diagnosis with blood work pending. The patient is requesting blood work be performed disease unable to perform the tests on an outpatient basis secondary to monetary restrictions. Therefore, the sheet with the instructions by his nuclear weapons mechanical specialist was reviewed and his tests were ordered, he is advised that most of these tests will take between 1-2 weeks to complete, he is advised to go through medical records to pepper picker his labs and a continuing following up with his nuclear weapons mechanical specialist. The patient agrees and understands. Diagnosis Primary Impression: Eye pain Qualified Code: H57.11 - Eye pain, right Additional Impression: Vitritis of right eye Patient Instructions: General Instructions Additional Instructions: Go to medical records to pickup your laboratory results and follow-up with your nuclear weapons mechanical specialist this Friday as scheduled. Continue antibiotic drops as previously directed. Please provide the patient a copy of his labs at discharge. Med/Other Pt SpecificInfo: Prescription(s) given, No Change to Meds Scripts Hydrocodone-Acetaminophen ([place])5-325 mg Tab1 Tab PO Q6H PRN (PAIN) #15 TAB Ref 0 Prov:Richard Gillis MD 09/30/16 Disposition: 01 DISCHARGE HOME Condition: Stable Richard Gillis MD Sep 30, 2016 17:26
[2016-09-30] MEDS ORDERED: ACETAMINOPHEN/HYDROcodone 325 MG/5 MG TAB PO ONE (18:00)
[2016-09-30 18:13] VITALS: BP 129/66; PULSE 69; RESP 19; O2SAT 97
[2016-09-30 18:14] LABS: AUTOMATED NEUTROPHIL # 4.1 TH/MM3 (1.8-7.7); BASOPHIL % 0.5 % (0.0-2.0); EOSINOPHIL # 0.1 TH/MM3 (0-0.4); EOSINOPHIL % 1.2 % (0.0-4.0); HEMATOCRIT 42.6 % (39.0-51.0); HEMO FLAGS DIFF FINAL; LYMPH % 44.4 % (9.0-44.0); LYMPHOCYTE # 4.3 TH/MM3 (1.0-4.8); MEAN CELL VOLUME 88.2 FL (80.0-100.0); MEAN CORPUSCULAR HEMOGLOBIN 31.5 PG (27.0-34.0); MEAN CORPUSCULAR HGB CONC 35.7 % (32.0-36.0); MONO % 11.1 % (0.0-8.0); NEUT % 42.8 % (16.0-70.0); PLATELET COUNT 237 TH/MM3 (150-450); RED BLOOD COUNT 4.83 MIL/MM3 (4.50-5.90); RED CELL DISTRIBUTION WIDTH 12.8 % (11.6-17.2); WHITE BLOOD COUNT 9.6 TH/MM3 (4.0-11.0)
[2016-09-30 18:35] LABS: ALT (GPT) 42 U/L (12-78); ANION GAP 5 MEQ/L (5-15); AST (GOT) 22 U/L (15-37); BICARBONATE 29.7 MEQ/L (21.0-32.0); BLOOD UREA NITROGEN 16 MG/DL (7-18); CHLORIDE 104 MEQ/L (98-107); GLOMERULAR FILTRATION RATE 76 ML/MIN (>89); POTASSIUM 3.9 MEQ/L (3.5-5.1); SODIUM (NA) 139 MEQ/L (136-145)
[2016-09-30 18:38] LABS: ALKALINE PHOSPHATASE 114 U/L (45-117); TOTAL BILIRUBIN ADULT 0.5 MG/DL (0.2-1.0)
[2016-09-30] MEDS ORDERED: NORC5TAB PO (18:58)
== END 2016-09-30 19:54 | disposition home or self-care (01) ==
LOC: NEPD 15:00
DX: H57.11 Ocular pain, right eye (principal)
CPT/HCPCS: 80053; 82164; 85025; 86038; 86592; 86593; 86777; 86778; 86780; 87103; 87801; 99283

== ENCOUNTER 2016-10-07 19:00 | Emergency (ER) | payer SELFPAY ==
[~2016-10-07 19:00] MED LIST changes: -CRUTMIS3; +NORC5TAB PO; -PERC10TA27 PO; -ULTR50TA5 PO; -WALKER WHEELS/F1 MIS; -XARE10TA PO
[2016-10-07 19:01] VITALS: BP 126/79; PULSE 80; RESP 16; TEMP 99.3; O2SAT 97
== END 2016-10-07 20:43 | disposition left against medical advice (07) ==
LOC: NED 19:00
DX: H57.10 Ocular pain, unspecified eye (principal); Z53.21 Procedure and treatment not carried out due to patient leaving prior to being seen by health care provider
CPT/HCPCS: 99281

== ENCOUNTER 2016-10-11 17:57 | Inpatient (IN) | payer OTHER ==
[~2016-10-11] VITALS: Ht 188 cm; Wt 84.8 kg
[2016-10-11 18:00] VITALS: BP 129/91; PULSE 88; RESP 16; TEMP 98.6; O2SAT 99
--- NOTE | 2016-10-11 18:07 | PD ---
Physical Exam Date Seen by Provider: Oct 11, 2016 Time Seen by Provider: 18:04 Data Data Last Documented VS Vital Signs Date Time Temp Pulse Resp B/P Pulse Ox O2 Delivery O2 Flow Rate FiO2 10/11/16 18:00 98.6 88 16 129/91 99 MDM Supervised Visit with GARIMA: No Narrative Course 61 YO M with complaint of "I have syphilis in my right eye." Seen at [facility] and in the ED this week. States that he was sent for "a shot of penicillin." Vitals reviewed. Patient seen in triage, awaiting bed placement. Ellyn Brunson Oct 11, 2016 18:06
[2016-10-11 18:53] VITALS: BP 125/78; PULSE 87; RESP 18; O2SAT 93
--- NOTE | 2016-10-11 19:10 | PD ---
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 Montes De Oca, the home care rn for treatment. She states he's had right eye pain and decreased vision for approximately one month. Patient recently saw Dr. Montes De Oca was referred to the retinal Center and examined there with lab work performed one week ago. He found out today that he was positive for syphilis, and was referred here for further treatment. Patient denies fever , chills, or other symptoms. He does have pain in the right forehead and behind the eye, and states he is unable to see out of the right eye at this time. He reports that the home care rn did see vitreous bleeding. Patient denies any other neurological symptoms currently. Patient has not had any treatment and potential this point. He has no known drug allergies. PFSH Past Medical History Anxiety: Yes Cancer: No Cardiovascular Problems: No Diminished Hearing: No Endocrine: No Gastrointestinal Disorders: Yes Genitourinary: No Immune Disorder: No Musculoskeletal: No Neurologic: No Psychiatric: Yes Reproductive: No Respiratory: No Past Surgical History Ear Surgery: Yes (ILENE. MYRINGOTOMIES) Oral Surgery: Yes (T & A) Tonsillectomy: Yes Tympanostomy Tube: Yes Other Surgery: Yes Social History Alcohol Use: No Tobacco Use: No Substance Use: No Allergies-Medications (Allergen,Severity, Reaction): Coded Allergies: No Known Allergies (Verified , 09/25/16) Reported Meds & Prescriptions Reported Meds & Active Scripts Active No Active Prescriptions or Reported Medications Review of Systems Except as stated in HPI: all other systems reviewed are Neg General / Constitutional: No: Fever, Chills Eyes: Positive: Blurred Vision, Pain, Tearing, Visual changes, Blindness, No: Blind Spots, Other HENT: Positive: Headaches, No: Vertigo, Lightheadedness, Sore Throat, Rhinitis , Rhinorrhea Cardiovascular: No: Chest Pain or Discomfort Respiratory: No: Shortness of Breath Gastrointestinal: No: Abdominal Pain Genitourinary: No: Dysuria Musculoskeletal: No: Pain Skin: No Rash Neurologic: No: Weakness Psychiatric: No: Depression Endocrine: No: Polydipsia Hematologic/Lymphatic: No: Easy Bruising Physical Exam Narrative GENERAL: Patient appears in mild distress. SKIN: Warm and dry. Normal color. Normal turgor. HEAD: Atraumatic. Normocephalic. EYES: Right pupil is 5 mm and nonreactive. No scleral icterus. Mild scleral injection and tearing to the right eye only. Left eye has normal exam. No red reflex is noted on the right. ENT: No nasal bleeding or discharge. Mucous membranes pink and moist. Pharynx is clear. Airway is patent. NECK: Trachea midline. Supple and nontender without significant lymphadenopathy. CARDIOVASCULAR: Regular rate and rhythm. RESPIRATORY: No accessory muscle use. Clear to auscultation. Breath sounds equal bilaterally. MUSCULOSKELETAL: Extremities without clubbing, cyanosis, or edema. No obvious deformities. NEUROLOGICAL: Awake and alert. No obvious cranial nerve deficits. Motor grossly within normal limits. Five out of 5 muscle strength in the arms and legs. Normal speech. PSYCHIATRIC: Appropriate mood and affect; insight and judgment normal. Data Data Last Documented VS Vital Signs Date Time Temp Pulse Resp B/P Pulse Ox O2 Delivery O2 Flow Rate FiO2 10/11/16 19:48 87 18 10/11/16 18:53 125/78 93 Room Air 10/11/16 18:00 98.6 Orders Complete Blood Count With Diff (10/11/16:17) Comprehensive Metabolic Panel (10/11/16:17) Lactic Acid (10/11/16 19:17) Prothrombin Time / Inr (Pt) (10/11/16 19:17) Act Partial Throm Time (Ptt) (10/11/16 19:17) Urinalysis - C+S If Indicated (10/11/16 19:17) Iv Access Insert/Monitor (10/11/16 19:17) Ecg Monitoring (10/11/16:17) Oximetry (10/11/16:17) Sodium Chloride 0.9% Flush (Ns Flush) (10/11/16 19:30) Electrocardiogram (10/11/16:17) Chest, Single Ap (10/11/16 19:17) Ketorolac Inj (Toradol Inj) (10/11/16 19:30) Penicillin G Sodium Inj (Penicillin G So (10/11/16 19:30) Ed Poc Ultrasound (10/11/16 ) Consult Ophthalmology (10/11/16 ) Admit Order (Ed Use Only) (10/11/16 20:16) Labs Laboratory Tests Test 10/11/16 19:26 Urine Color YELLOW Urine Turbidity CLEAR Urine pH 6.5 Urine Specific [place] 1.028 Urine Protein NEG mg/dL Urine Glucose (UA) NEG mg/dL Urine Ketones NEG mg/dL Urine Occult Blood NEG Urine Nitrite NEG Urine Bilirubin NEG Urine Urobilinogen 4.0 MG/DL Urine Leukocyte Esterase NEG Urine Mucus FEW /lpf Microscopic Urinalysis Comment CULT NOT INDICATED MDM Medical Decision Making Medical Screen Exam Complete: Yes Emergency Medical Condition: Yes Differential Diagnosis Right eye pain. Right eye blindness. Positive ocular syphilis Narrative Course Patient is medically stable at time of exam. Labs ordered include a CBC, CMP, lactic acid. Chest x-ray is ordered. EKG was ordered EKG shows sinus rhythm with no acute changes. Chest x-ray is unremarkable. IV access is obtained patient is given 30 mg Toradol IV as well as 3 million units of penicillin G IV. Call was placed to hospitalist for admission. 2020 hrs. patient is discussed with Dr. De La Vega, who agrees to admit the patient. Consult was placed to Dr. Baldwin, the home care rn on-call. Diagnosis Primary Impression: Ocular syphilis Additional Impression: Eye pain Qualified Code: H57.11 - Pain of right eye Admitting Information Admitting Physician Requests: Admit Scripts No Active Prescriptions or Reported Meds Condition: Diony Yip Oct 11, 2016 19:10
[2016-10-11] MEDS ORDERED: PENICILLIN G SODIUM INJ 3,000,000 UNITS in SODIUM CHLORIDE 0.9% INJ 100 ML IV ONE (19:30)
[2016-10-11] MEDS ORDERED: KETOROLAC TROMETHAMINE 30 MG/ML (IVP) VIAL IVP ONE (19:30)
[2016-10-11] MEDS ORDERED: SODIUM CHLORIDE 0.9% FLUSH 10 ML FLUSH IV FLUSH PRN ×2 (19:30→20:30)
[2016-10-11 19:58] LABS: AUTOMATED NEUTROPHIL # 4.2 TH/MM3 (1.8-7.7); BASOPHIL % 0.5 % (0.0-2.0); EOSINOPHIL # 0.2 TH/MM3 (0-0.4); EOSINOPHIL % 1.6 % (0.0-4.0); HEMATOCRIT 44.1 % (39.0-51.0); HEMO FLAGS DIFF FINAL; LYMPHOCYTE # 4.4 TH/MM3 (1.0-4.8); MEAN CELL VOLUME 90.4 FL (80.0-100.0); MEAN CORPUSCULAR HEMOGLOBIN 30.6 PG (27.0-34.0); MEAN CORPUSCULAR HGB CONC 33.9 % (32.0-36.0); MONO % 9.8 % (0.0-8.0); NEUT % 43.1 % (16.0-70.0); PLATELET COUNT 253 TH/MM3 (150-450); RED BLOOD COUNT 4.88 MIL/MM3 (4.50-5.90); RED CELL DISTRIBUTION WIDTH 12.9 % (11.6-17.2); WHITE BLOOD COUNT 9.8 TH/MM3 (4.0-11.0)
[2016-10-11 20:02] LABS: BLOOD, URINE NEG (NEG); COMMENT (UR) CULT NOT INDICATED; CULTURE IF INDICATED CULT NOT INDICATED; GLUCOSE,URINE NEG (NEG); KETONE, URINE NEG (NEG); MUCUS URINE FEW /lpf (OCC); NITRITE,URINE NEG (NEG); PH, URINE 6.5 (5.0-8.5); URINE COLOR YELLOW (YELLW/STRAW)
--- NOTE | 2016-10-11 20:06 | RADRPT ---
EXAM DATE/TIME: 10/11/2016 19:35 [facility] COMPARISON: No previous studies available for comparison. INDICATIONS : Cough. MEDICAL HISTORY : Chronic obstructive pulmonary disease. SURGICAL HISTORY : None. ENCOUNTER: Initial ACUITY: 1 day PAIN SCORE: 0/10 LOCATION: Bilateral chest FINDINGS: A single view of the chest demonstrates the lungs to be symmetrically aerated without evidence of mas s, infiltrate or effusion. The cardiomediastinal contours are unremarkable. Osseous structures are intact. Remote right rib fracture. Mild hyperinflation. CONCLUSION: 1. No acute findings. Mild hyperinflation. Ravi Casiano MD on October 11, 2016 at 20:02 Board Certified Radiologist. This report was verified electronically.
[2016-10-11 20:22] LABS: APTT (PATIENT) 28.5 SEC (24.3-30.1); INTERNATIONAL NORMALIZED RATIO 0.9 RATIO; PROTHROMBIN TIME - PATIENT 10.3 SEC (9.8-11.6)
--- NOTE | 2016-10-11 20:22 | HHI.HP ---
HPI Service [facility] Primary Care Physician No Primary Care Physician Admission Diagnosis Ocular Syphilis Diagnoses: (1) Ocular syphilis Diagnosis: Principal (2) Eye pain Diagnosis: Principal (3) Dehydration Diagnosis: Principal Travel History International Travel<30 Days: No Contact w/Intl Traveler <30 Da: No Traveled to Known Affected Are: No History of Present Illness This is a 61-year-old male with a PMH of Anxiety was referred to the ER by his Erp Specialist, Dr. Montes De Oca, for treatment of Ocular Syphilis. Per pt, he's had ongoing blurry vision and pain in right eye for approx 1 month. Was seen by Dr. Montes De Oca as outpatient, initially diagnosed w/ Vitreitis and was prescribed Antibiotic gtt and Cycloplegics, reports compliance w/ antibiotics. Later referred to Retinal Center where he had multiple labs drawn. States he was told today results were positive for Syphilis and was instructed to go to the ER for IV Abx. No reported h/o Syphilis in the past, denies h/o HIV. No headache, nausea/vomiting, fever or chills. On arrival, BP 129/91, HR 88, O2 sat 99% on RA Afebrile. CBC essentially unremarkable. Chemistry unremarkable except for dehydration, BUN 24, GFR 69. Lactic Acid 1.0. INR 0.9. UA negative. CXR with no acute findings. Dr. Montes De Oca contacted by ER physician, recommended initiation of IV Abx. Review of Systems Except as stated in HPI: all other systems reviewed are Neg ROS: 14 point review of systems otherwise negative. Past Family Social History Past Medical History PMH: Anxiety Past Surgical History PAST SURGICAL HISTORY: Tonsillectomy, Bilateral Ear Tubes Allergies: Coded Allergies: No Known Allergies (Verified , 09/25/16) Family History PAST FAMILY HISTORY: Reviewed. No h/o DM or CAD Social History PAST SOCIAL HISTORY: Negative for alcohol, tobacco or drugs. Physical Exam Vital Signs Vital Signs Date Time Temp Pulse Resp B/P Pulse Ox O2 Delivery O2 Flow Rate FiO2 10/11/16 19:48 87 18 10/11/16 18:53 87 18 125/78 93 Room Air 10/11/16 18:00 98.6 88 16 129/91 99 Physical Exam PE: GENERAL: Middle-aged male in no acute distress. HEENT: Right eye dilated, 5mm, minimally reactive, Left eye 2mm, reactive. EOMI. No scleral icterus or conjunctival pallor. No lid lag or facial droop. CARDIOVASCULAR: Regular rate and rhythm. No obvious murmurs to auscultation. No chest tenderness to palpation. RESPIRATORY: No obvious rhonchi or wheezing. Clear to auscultation. Breath sounds equal bilaterally. GASTROINTESTINAL: Abdomen soft, non-tender, nondistended. BS normal. MUSCULOSKELETAL: Extremities without clubbing, cyanosis, or edema. No obvious deformities. NEUROLOGICAL: Awake, alert and oriented x4. No focal neurologic deficits. Moving both upper and lower extremities spontaneously. Laboratory Laboratory Tests Test 10/11/16 19:26 Urine Color YELLOW Urine Turbidity CLEAR Urine pH 6.5 Urine Specific [place] 1.028 Urine Protein NEG Urine Glucose (UA) NEG Urine Ketones NEG Urine Occult Blood NEG Urine Nitrite NEG Urine Bilirubin NEG Urine Urobilinogen 4.0 Urine Leukocyte Esterase NEG Urine Mucus FEW Microscopic Urinalysis Comment CULT NOT INDICATED Assessment and Plan Problem List: (1) Ocular syphilis ICD Code: A52.71 Status: Acute (2) Eye pain ICD Code: H57.10 Status: Acute (3) Dehydration ICD Code: E86.0 Status: Acute Assessment and Plan A/P: 1. Ocular Syphilis: recent diagnosis of Vitreitis w/ minimal improvement after antibiotic gtts, referred to ER by Erp Specialist Dr. Montes De Oca for IV Abx as outpatient blood work +Syphilis. S/p PCN G in ER, will continue w/ PCN G 3mill q4h. Consult ID for further recommendations. Consult IR for LP to eval for neurosyphilis, check CSF VDRL, culture/gram stain.... Check lymphocyte panel, no reported h/o HIV. 2. Eye Pain: Right. Secondary to above. Analgesics as needed. 3. Dehydration: BUN 24, GFR 69. U/a negative. IVF for hydration. 4. DVT Prophylaxis: SCD/Teds. 5. Social work for d/c planning as needed. 6. Case discussed w/ ER physician at length. Physician Certification 2 Midnight Certification Type: Admission for Inpatient Services Order for Inpatient Services The services are ordered in accordance with Medicare regulations or non- Medicare payer requirements, as applicable. In the case of services not specified as inpatient-only, they are appropriately provided as inpatient services in accordance with the 2-midnight benchmark. Estimated LOS (days): 2 days is the estimated time the patient will need to remain in the hospital, assuming treatment plan goals are met and no additional complications. Post-Hospital Plan: Not yet determined Problem Qualifiers (1) Eye pain: Qualified Code: H57.11 - Pain of right eye Guerda De La Vega MD Oct 11, 2016 20:22
[2016-10-11] MEDS ORDERED: BISACODYL 10 MG SUPP RECTAL PRN (20:30)
[2016-10-11] MEDS ORDERED: MAGNESIUM HYDROXIDE SUSP 30 ML CUP PO PRN (20:30)
[2016-10-11] MEDS ORDERED: ACETAMINOPHEN 325 MG TAB PO PRN (20:30)
[2016-10-11] MEDS ORDERED: SENNOSIDES 8.6 MG TAB PO PRN (20:30)
[2016-10-11] MEDS ORDERED: ACETAMINOPHEN/HYDROcodone 325 MG/5 MG TAB PO PRN (20:30)
[2016-10-11] MEDS ORDERED: LACTULOSE SYRUP 20 GM/30 ML CUP PO PRN (20:30)
[2016-10-11] MEDS ORDERED: ONDANSETRON HCL 4 MG/2 ML VIAL IVP PRN (20:30)
--- NOTE | 2016-10-11 20:34 | PD ---
Physical Exam Narrative I, Dr. Jaimes, have reviewed the advance practice practitioner's documentation and am in agreement, met with the patient face to face, made the diagnosis, and the medical decision making was done by me. *My assessment and Findings: Ocular syphilis 61yo M was sent her by ship propeller finisher Dr. Montes De Oca for treatment of ocular syphilis. Pt has been having right eye pain and decreased vision for 1 month and has had a full work up. He was referred to retinal center and had lab work that was positive for RPR. Pt denies any other symptoms. Pt given toradol, penicillin G IV and labs were drawn. Labs reviewed, no leukocytosis. UA negative. Pt was told he had vitreous bleeding. Right pupil was dilated and not reactive to light. Injected conjunctiva. I did bedside ultrasound but did not appreciate vitreous hemorrhage. Ophthalmology consult placed. Call center called back and said there is no ophthalmology coverage over the weekend and wanted me to cancel the consult. States consult can be replaced on Friday. Pt admitted to hospitalist Dr. De La Vega's service. Data Data Last Documented VS Vital Signs Date Time Temp Pulse Resp B/P Pulse Ox O2 Delivery O2 Flow Rate FiO2 10/11/16 19:48 87 18 10/11/16 18:53 125/78 93 Room Air 10/11/16 18:00 98.6 Orders Complete Blood Count With Diff (10/11/16:17) Comprehensive Metabolic Panel (10/11/16 19:17) Lactic Acid (10/11/16:17) Prothrombin Time / Inr (Pt) (10/11/16:17) Act Partial Throm Time (Ptt) (10/11/16:17) Urinalysis - C+S If Indicated (10/11/16 19:17) Iv Access Insert/Monitor (10/11/16 19:17) Ecg Monitoring (10/11/16:17) Oximetry (10/11/16 19:17) Sodium Chloride 0.9% Flush (Ns Flush) (10/11/16 19:30) Electrocardiogram (10/11/16:17) Chest, Single Ap (10/11/16 19:17) Ketorolac Inj (Toradol Inj) (10/11/16 19:30) Penicillin G Sodium Inj (Penicillin G So (10/11/16 19:30) Ed Poc Ultrasound (10/11/16 ) Admit Order (Ed Use Only) (10/11/16 20:16) Labs Laboratory Tests Test 10/11/16 10/11/16 19:26 19:36 Urine Color YELLOW Urine Turbidity CLEAR Urine pH 6.5 Urine Specific [place] 1.028 Urine Protein NEG mg/dL Urine Glucose (UA) NEG mg/dL Urine Ketones NEG mg/dL Urine Occult Blood NEG Urine Nitrite NEG Urine Bilirubin NEG Urine Urobilinogen 4.0 MG/DL Urine Leukocyte Esterase NEG Urine Mucus FEW /lpf Microscopic Urinalysis Comment CULT NOT INDICATED White Blood Count 9.8 TH/MM3 Red Blood Count 4.88 MIL/MM3 Hemoglobin 15.0 GM/DL Hematocrit 44.1 % Mean Corpuscular Volume 90.4 FL Mean Corpuscular Hemoglobin 30.6 PG Mean Corpuscular Hemoglobin 33.9 % Concent Red Cell Distribution Width 12.9 % Platelet Count 253 TH/MM3 Mean Platelet Volume 7.2 FL Neutrophils (%) (Auto) 43.1 % Lymphocytes (%) (Auto) 45.0 % Monocytes (%) (Auto) 9.8 % Eosinophils (%) (Auto) 1.6 % Basophils (%) (Auto) 0.5 % Neutrophils # (Auto) 4.2 TH/MM3 Lymphocytes # (Auto) 4.4 TH/MM3 Monocytes # (Auto) 1.0 TH/MM3 Eosinophils # (Auto) 0.2 TH/MM3 Basophils # (Auto) 0.0 TH/MM3 CBC Comment DIFF FINAL Differential Comment Prothrombin Time 10.3 SEC Prothromb Time International 0.9 RATIO Ratio Activated Partial 28.5 SEC Thromboplast Time Sodium Level 140 MEQ/L Potassium Level 4.2 MEQ/L Chloride Level 104 MEQ/L Carbon Dioxide Level 29.8 MEQ/L Anion Gap 6 MEQ/L Blood Urea Nitrogen 24 MG/DL Creatinine 1.09 MG/DL Estimat Glomerular Filtration 69 ML/MIN Rate Random Glucose 111 MG/DL Lactic Acid Level 1.0 mmol/L Calcium Level 8.8 MG/DL Total Bilirubin 0.4 MG/DL Aspartate Amino Transf 26 U/L (AST/SGOT) Alanine Aminotransferase 47 U/L (ALT/SGPT) Alkaline Phosphatase 128 U/L Total Protein 7.9 GM/DL Albumin 3.7 GM/DL MDM Supervised Visit with GARIMA: Yes Procedures Procedure Narrative Emergency department ocular ultrasound was performed with patient consent. Linear probe was used in the transverse and sagittal views of the orbit without evidence of retinal detachment, vitreous hemorrhage, or lens dislocation. Diagnosis Primary Impression: Ocular syphilis Additional Impression: Eye pain Qualified Code: H57.11 - Pain of right eye Admitting Information Admitting Physician Requests: Admit Scripts No Active Prescriptions or Reported Meds Condition: Stable Miladys Jaimes DO Oct 11, 2016 20:34
[2016-10-11 20:51] LABS: ALKALINE PHOSPHATASE 128 U/L (45-117); TOTAL BILIRUBIN ADULT 0.4 MG/DL (0.2-1.0)
[2016-10-11 21:08] LABS: ALT (GPT) 47 U/L (12-78); ANION GAP 6 MEQ/L (5-15); AST (GOT) 26 U/L (15-37); BICARBONATE 29.8 MEQ/L (21.0-32.0); BLOOD UREA NITROGEN 24 MG/DL (7-18); CHLORIDE 104 MEQ/L (98-107); GLOMERULAR FILTRATION RATE 69 ML/MIN (>89); SODIUM (NA) 140 MEQ/L (136-145)
[2016-10-11 21:10] LABS: POTASSIUM 4.2 MEQ/L (3.5-5.1)
[2016-10-11] MEDS: SODIUM CHLORIDE 0.9% FLUSH 10 ML FLUSH IV FLUSH SCH (21:12)
[2016-10-11] MEDS: SODIUM CHLOR 0.9% 1000 ML INJ 1,000 ML IV SCH (21:12)
[2016-10-11] MEDS: DOCUSATE SODIUM 50 MG/SENNA 8.6 MG TAB PO SCH (21:12)
[2016-10-11 22:13] VITALS: BP 120/80; PULSE 65; RESP 20; TEMP 96.3; O2SAT 96
[2016-10-12] VITALS: BP 118/63; PULSE 72; RESP 20; TEMP 96.7; O2SAT 96
[2016-10-12] MEDS: PENICILLIN G SODIUM INJ 3,000,000 UNITS in SODIUM CHLORIDE 0.9% INJ 100 ML IV SCH ×7 (00:31→23:33)
[2016-10-12] MEDS: ACETAMINOPHEN/HYDROcodone 325 MG/10 MG TAB PO PRN ×4 (00:38→22:08)
[2016-10-12] MEDS: SODIUM CHLOR 0.9% 1000 ML INJ 1,000 ML IV SCH ×3 (03:30→21:01)
[2016-10-12 07:22] LABS: AUTOMATED NEUTROPHIL # 3.9 TH/MM3 (1.8-7.7); BASOPHIL % 0.4 % (0.0-2.0); EOSINOPHIL # 0.2 TH/MM3 (0-0.4); EOSINOPHIL % 2.4 % (0.0-4.0); HEMATOCRIT 41.5 % (39.0-51.0); HEMO FLAGS DIFF FINAL; LYMPHOCYTE # 2.7 TH/MM3 (1.0-4.8); MEAN CORPUSCULAR HEMOGLOBIN 30.7 PG (27.0-34.0); MEAN CORPUSCULAR HGB CONC 34.1 % (32.0-36.0); MONO % 12.8 % (0.0-8.0); NEUT % 50.4 % (16.0-70.0); PLATELET COUNT 234 TH/MM3 (150-450); RED BLOOD COUNT 4.61 MIL/MM3 (4.50-5.90); RED CELL DISTRIBUTION WIDTH 12.7 % (11.6-17.2); WHITE BLOOD COUNT 7.8 TH/MM3 (4.0-11.0)
[2016-10-12 07:53] LABS: ALT (GPT) 39 U/L (12-78); ANION GAP 6 MEQ/L (5-15); AST (GOT) 24 U/L (15-37); BICARBONATE 27.3 MEQ/L (21.0-32.0); BLOOD UREA NITROGEN 25 MG/DL (7-18); CHLORIDE 109 MEQ/L (98-107); GLOMERULAR FILTRATION RATE 81 ML/MIN (>89); POTASSIUM 4.1 MEQ/L (3.5-5.1); SODIUM (NA) 142 MEQ/L (136-145)
[2016-10-12 07:57] LABS: ALKALINE PHOSPHATASE 108 U/L (45-117); TOTAL BILIRUBIN ADULT 0.4 MG/DL (0.2-1.0)
[2016-10-12 08:00] VITALS: BP 114/71; PULSE 60; RESP 20; TEMP 97.8; O2SAT 96
[2016-10-12] MEDS: DOCUSATE SODIUM 50 MG/SENNA 8.6 MG TAB PO SCH ×2 (08:18→21:00)
[2016-10-12] MEDS: SODIUM CHLORIDE 0.9% FLUSH 10 ML FLUSH IV FLUSH SCH ×2 (08:18→16:51)
--- NOTE | 2016-10-12 11:48 | HHI.PR ---
Subjective Remarks denies fevers/chills vital signs stable c/o pain in right eye Objective Vitals Vital Signs Date Time Temp Pulse Resp B/P Pulse Ox O2 Delivery O2 Flow Rate FiO2 10/12/16 08:00 97.8 60 20 114/71 96 10/12/16 00:00 96.7 72 20 118/63 96 10/11/16 22:13 96.3 65 20 120/80 96 10/11/16 19:48 87 18 10/11/16 18:53 87 18 125/78 93 Room Air 10/11/16 18:00 98.6 88 16 129/91 99 I/O 10/11/16 10/11/16 10/11/16 10/12/16 10/12/16 10/12/16 07:00 15:00 23:00 07:00 15:00 23:00 Intake Total 710 ml 0 ml Output Total 375 ml Balance 335 ml 0 ml Intake Oral 0 ml 0 ml IV Total 710 ml Output Urine Total 375 ml # Bowel Movements 0 Result Diagram: 10/12/1609 10/12/1609 Imaging Last Impressions Chest X-Ray 10/11/161916 Signed Impressions: Service Date/Time: Tuesday, October 11, 2016 19:35 - CONCLUSION: 1. No acute findings. Mild hyperinflation. Ravi Casiano MD Objective Remarks GENERAL: Middle-aged male in no acute distress. HEENT: Right eye dilated, 5mm, minimally reactive, Left eye 2mm, reactive. EOMI. No scleral icterus or conjunctival pallor. No lid lag or facial droop. CARDIOVASCULAR: Regular rate and rhythm. No obvious murmurs to auscultation. No chest tenderness to palpation. RESPIRATORY: No obvious rhonchi or wheezing. Clear to auscultation. Breath sounds equal bilaterally. GASTROINTESTINAL: Abdomen soft, non-tender, nondistended. BS normal. MUSCULOSKELETAL: Extremities without clubbing, cyanosis, or edema. No obvious deformities. NEUROLOGICAL: Awake, alert and oriented x4. No focal neurologic deficits. Moving both upper and lower extremities spontaneously. Medications and IVs Current Medications Medications (Trade) Dose Ordered Sig/Donell Route Start Time Stop Time Status Last Admin Penicillin G Sodium 6972409 units/Sodium Chloride 100 ml @ 200 mls/hr Q4H IV 10/12/16 00:00 10/12/16 11:22 (NS 1000 ml Inj) 1,000 ml @ 100 mls/hr Q10H IV 10/11/16 20:20 10/12/16 11:22 (NS Flush) 2 ml UNSCH PRN IV FLUSH 10/11/16 20:30 (NS Flush) 2 ml BID IV FLUSH 10/11/16 21:00 10/12/16 08:18 (Zofran Inj) 4 mg Q6H PRN IVP 10/11/16 20:30 (Tylenol) 650 mg Q6H PRN PO 10/11/16 20:30 ([place] 5-325 Mg) 1 tab Q4H PRN PO 10/11/16 20:30 ([place] 10-325 Mg) 1 tab Q4H PRN PO 10/11/16 20:30 10/12/16 08:19 (Vicki-Colace) 1 tab BID PO 10/11/16 21:00 10/12/16 08:18 (Milk Of Magnesia Liq) 30 ml Q12H PRN PO 10/11/16 20:30 (Senokot) 17.2 mg Q12H PRN PO 10/11/16 20:30 (Dulcolax Supp) 10 mg DAILY PRN RECTAL 10/11/16 20:30 (Lactulose Liq) 30 ml DAILY PRN PO 10/11/16 20:30 A/P Problem List: (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 Ocular Syphilis: recent diagnosis of Vitreitis w/ minimal improvement after antibiotic gtts, referred to ER by Machine Etcher Dr. Montes De Oca for IV Abx as outpatient blood work +Syphilis. S/p PCN G in ER, will continue w/ PCN G 3mill q4h. Consult ID for further recommendations. Consult IR for LP to eval for neurosyphilis, check CSF VDRL, culture/gram stain.... Check lymphocyte panel, no reported h/o HIV. 10/12 ID consult pending. Continue IV antibiotics as above 2. Eye Pain: Right. Secondary to above. Analgesics as needed. - will Add IV morphine for breakthrough pain 3. Dehydration: BUN 24, GFR 69. U/a negative. IVF for hydration. 4. DVT Prophylaxis: SCD/Teds. 5. Social work for d/c planning as needed. Problem Qualifiers (1) Eye pain: Qualified Code: H57.11 - Pain of right eye Kevin Nichols MD Oct 12, 2016 11:48
[2016-10-12 12:00] VITALS: BP 105/63; PULSE 61; RESP 20; TEMP 97.8; O2SAT 95
[2016-10-12 16:00] VITALS: BP 123/70; PULSE 73; RESP 20; TEMP 97.8; O2SAT 98
--- NOTE | 2016-10-12 17:23 | EKG ---
Date Performed: 10/11/2016 Time Performed: 19:58:44 PTAGE: 61 years EKG: Sinus rhythm POSSIBLE RIGHT VENTRICULAR CONDUCTION DELAY BORDERLINE ECG Compared to prior tracing no significant change PREVIOUS TRACING : 06/04/2016 21.24 DOCTOR: David German Interpretating Date/Time 10/12/2016 17:19:48
[2016-10-12] MEDS: MORPHINE SULFATE 4 MG/ML INJ IV PUSH PRN ×2 (17:55→23:09)
[2016-10-12 20:00] VITALS: BP 117/69; PULSE 67; RESP 20; TEMP 97; O2SAT 96
--- NOTE | 2016-10-12 20:03 | PD.ID.CON ---
History of Present Illness Service ID Consult Requested By Dr De La Vega Reason for Consult ocluar syphilis Primary Care Physician No Primary Care Physician Diagnoses: History of Present Illness 61 yo male no h/o syphilis prior to his knowledge, denies genital ulcers or rashes developped L eye redness and vision loss and failed treamtnet with sterroids HIs blood work was + for RPR 1:128 with reactive FTA -abs Pt was admitted and started on IV PCN Pt denies headache, fevers, chills , rash, any other problems except floaters and decerased R eye vision Not sexaully active recentl;y . Review of Systems Eyes: COMPLAINS OF: Blurred vision, Eye inflammation, Vision loss Except as stated in HPI: all other systems reviewed are Neg Past Family Social History Allergies: Coded Allergies: No Known Allergies (Verified , 09/25/16) Past Medical History Anxiety Past Surgical History Tonsillectomy, Bilateral Ear Tubes Active Ordered Medications Medications where reviewed in EMR Antibiotics Include: PCN 3 units q 4 hrs Family History Reviewed. No h/o DM or CAD Social History Negative for alcohol, tobacco or drugs. Physical Exam Vital Signs Vital Signs Date Time Temp Pulse Resp B/P Pulse Ox O2 Delivery O2 Flow Rate FiO2 10/12/16 16:00 97.8 73 20 123/70 98 10/12/16 12:00 97.8 61 20 105/63 95 10/12/16 08:00 97.8 60 20 114/71 96 10/12/16 00:00 96.7 72 20 118/63 96 10/11/16 22:13 96.3 65 20 120/80 96 Physical Exam CONSTITUTIONAL/GENERAL: This is an adequately nourished patient, in no apparent distress. TUBES/LINES/DRAINS: SKIN: No jaundice, rashes, or lesions. Ecchymoses on upper extremities. No wounds seen anteriorly. Skin temperature appropriate. Not diaphoretic. HEAD: Atraumatic. Normocephalic. EYES: Pupils are unequal R pupil >> L, non reactive R eye is injected . Extraocular motions intact. No scleral icterus. No injection or drainage. Fundi not examined. ENT: Hearing grossly normal. Nose without bleeding or purulent drainage. Oral mucosae without visible erythema, exudates, masses, or lesions. NECK: Trachea midline. Supple, nontender. No palpable thyroid enlargement or nodularity. CARDIOVASCULAR: Regular rate and rhythm without murmurs, gallops, or rubs. No JVD. Peripheral pulses symmetric. RESPIRATORY/CHEST: Symmetric, unlabored respirations. Clear to auscultation. Breath sounds equal bilaterally. No wheezes, rales, or rhonchi. GASTROINTESTINAL: Abdomen soft, non-tender, nondistended. No hepato-splenomegaly , or palpable masses. No guarding. Bowel sounds present. GENITOURINARY: Without palpable bladder distension. Cherry catheter in place. MUSCULOSKELETAL: Extremities without clubbing, cyanosis, or edema. No joint tenderness or effusion noted. No calf tenderness. No mottling or clubbing. LYMPHATICS: No palpable cervical or supraclavicular adenopathy. NEUROLOGICAL: Awake and alert. Motor and sensory grossly within normal limits. Follows commands. Cognitively sharp. Normal speech Moves all extremities. PSYCHIATRIC: No obvious anxiety/depression. no apparent hallucinations or other psychotic thought process. Laboratory Laboratory Tests Test 10/12/16 06:09 White Blood Count 7.8 Red Blood Count 4.61 Hemoglobin 14.2 Hematocrit 41.5 Mean Corpuscular Volume 90.0 Mean Corpuscular Hemoglobin 30.7 Mean Corpuscular Hemoglobin 34.1 Concent Red Cell Distribution Width 12.7 Platelet Count 234 Mean Platelet Volume 7.1 Neutrophils (%) (Auto) 50.4 Lymphocytes (%) (Auto) 34.0 Monocytes (%) (Auto) 12.8 Eosinophils (%) (Auto) 2.4 Basophils (%) (Auto) 0.4 Neutrophils # (Auto) 3.9 Lymphocytes # (Auto) 2.7 Monocytes # (Auto) 1.0 Eosinophils # (Auto) 0.2 Basophils # (Auto) 0.0 CBC Comment DIFF FINAL Differential Comment Sodium Level 142 Potassium Level 4.1 Chloride Level 109 Carbon Dioxide Level 27.3 Anion Gap 6 Blood Urea Nitrogen 25 Creatinine 0.95 Estimat Glomerular Filtration 81 Rate Random Glucose 86 Calcium Level 8.2 Total Bilirubin 0.4 Aspartate Amino Transf 24 (AST/SGOT) Alanine Aminotransferase 39 (ALT/SGPT) Alkaline Phosphatase 108 Total Protein 6.4 Albumin 2.9 Result Diagram: 10/12/16 0609 10/12/16 0609 Imaging Last Impressions Chest X-Ray 10/11/161916 Signed Impressions: Service Date/Time: Tuesday, October 11, 2016 19:35 - CONCLUSION: 1. No acute findings. Mild hyperinflation. 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
[2016-10-13] VITALS: BP 111/68; PULSE 70; RESP 20; TEMP 97.6; O2SAT 96
[2016-10-13] MEDS: PENICILLIN G SODIUM INJ 3,000,000 UNITS in SODIUM CHLORIDE 0.9% INJ 100 ML IV SCH ×5 (04:06→20:34)
[2016-10-13 08:00] VITALS: BP 115/52; PULSE 65; RESP 19; TEMP 97.4; O2SAT 95
[2016-10-13] MEDS: DOCUSATE SODIUM 50 MG/SENNA 8.6 MG TAB PO SCH ×2 (09:00→20:29)
[2016-10-13] MEDS: ACETAMINOPHEN/HYDROcodone 325 MG/10 MG TAB PO PRN ×3 (10:33→20:29)
[2016-10-13] MEDS: SODIUM CHLORIDE 0.9% FLUSH 10 ML FLUSH IV FLUSH SCH ×2 (10:34→20:30)
[2016-10-13] MEDS: MORPHINE SULFATE 4 MG/ML INJ IV PUSH PRN ×3 (12:15→21:43)
[2016-10-13] MEDS: SODIUM CHLOR 0.9% 1000 ML INJ 1,000 ML IV SCH (12:37)
--- NOTE | 2016-10-13 13:36 | HHI.PR ---
Subjective Remarks c/o headache and retro - orbital pain deneis cp/sob denies fevers/chills Pain medications only bringing pain down from a 7 to a 6 Objective Vitals Vital Signs Date Time Temp Pulse Resp B/P Pulse Ox O2 Delivery O2 Flow Rate FiO2 10/13/16 08:00 97.4 65 19 115/52 95 10/13/16 00:00 97.6 70 20 111/68 96 10/12/16 20:00 97.0 67 20 117/69 96 10/12/16 16:00 97.8 73 20 123/70 98 I/O 10/12/16 10/12/16 10/12/16 10/13/16 10/13/16 10/13/16 06:59 14:59 22:59 06:59 14:59 22:59 Intake Total 710 ml 905 ml 1115 ml 1020 ml 120 ml Output Total 375 ml 700 ml 675 ml Balance 335 ml 205 ml 1115 ml 345 ml 120 ml Intake Oral 0 ml 0 ml 360 ml 240 ml 120 ml IV Total 710 ml 905 ml 755 ml 780 ml Output Urine Total 375 ml 700 ml 675 ml # Voids 1 # Bowel Movements 0 0 Result Diagram: 10/12/16 0609 10/12/16 0609 Imaging Last Impressions Chest X-Ray 10/11/161916 Signed Impressions: Service Date/Time: Tuesday, October 11, 2016 19:35 - CONCLUSION: 1. No acute findings. Mild hyperinflation. Ravi Casiano MD Objective Remarks GENERAL: Middle-aged male in no acute distress. HEENT: Right eye dilated, 5mm, minimally reactive, Left eye 2mm, reactive. EOMI. No scleral icterus or conjunctival pallor. No lid lag or facial droop. CARDIOVASCULAR: Regular rate and rhythm. No obvious murmurs to auscultation. No chest tenderness to palpation. RESPIRATORY: No obvious rhonchi or wheezing. Clear to auscultation. Breath sounds equal bilaterally. GASTROINTESTINAL: Abdomen soft, non-tender, nondistended. BS normal. MUSCULOSKELETAL: Extremities without clubbing, cyanosis, or edema. No obvious deformities. NEUROLOGICAL: Awake, alert and oriented x4. No focal neurologic deficits. Moving both upper and lower extremities spontaneously. Procedures none Medications and IVs Current Medications Medications (Trade) Dose Ordered Sig/Donell Route Start Time Stop Time Status Last Admin Penicillin G Sodium 6947512 units/Sodium Chloride 100 ml @ 200 mls/hr Q4H IV 10/12/16 00:00 10/13/16 12:14 (NS 1000 ml Inj) 1,000 ml @ 100 mls/hr Q10H IV 10/11/16 20:20 10/13/16 12:37 (NS Flush) 2 ml UNSCH PRN IV FLUSH 10/11/16 20:30 (NS Flush) 2 ml BID IV FLUSH 10/11/16 21:00 10/13/16 10:34 (Zofran Inj) 4 mg Q6H PRN IVP 10/11/16 20:30 (Tylenol) 650 mg Q6H PRN PO 10/11/16 20:30 ([place] 5-325 Mg) 1 tab Q4H PRN PO 10/11/16 20:30 ([place] 10-325 Mg) 1 tab Q4H PRN PO 10/11/16 20:30 10/13/16 10:33 (Vicki-Colace) 1 tab BID PO 10/11/16 21:00 10/12/16 08:18 (Milk Of Magnesia Liq) 30 ml Q12H PRN PO 10/11/16 20:30 (Senokot) 17.2 mg Q12H PRN PO 10/11/16 20:30 (Dulcolax Supp) 10 mg DAILY PRN RECTAL 10/11/16 20:30 (Lactulose Liq) 30 ml DAILY PRN PO 10/11/16 20:30 (Morphine Inj) 2 mg Q3H PRN IV PUSH 10/12/16 13:15 10/13/16 12:15 Urinary Catheter: No Vascular Central Line Catheter: No A/P Problem List: (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 Ocular Syphilis: recent diagnosis of Vitreitis w/ minimal improvement after antibiotic gtts, referred to ER by Principal Web Developer Dr. Montes De Oca for IV Abx as outpatient blood work +Syphilis. S/p PCN G in ER, will continue w/ PCN G 3mill q4h. Consult ID for further recommendations. Consult IR for LP to eval for neurosyphilis, check CSF VDRL, culture/gram stain.... 10/13 ID consulted, appreciate recommendations. Continue penicillin IV every 4 hours, LP to eval for neurosyphilis in a.m. H IV 1 and 2 antibodies pending. Will order GC chlamydia. Will consult ophtalmology - Dr Montes De Oca. Surya. We'll keep nothing by mouth at midnight for lumbar puncture. 2. Eye Pain: Right. Secondary to above. Analgesics as needed. 10/13 Increase dose of IV morphine from 2 mg IV to 4 mg IV every 4 hours as needed for breakthrough pain. I will also obtain a CT of the head and orbits since patient has severe headache. 3. Dehydration: Urinalysis negative. I will discontinue IV fluids since patient has good oral intake. 4. DVT Prophylaxis: SCD/Teds. 5. Social work for d/c planning as needed. Discharge Planning Continue to monitor in the medical floor. LP in a.m. Problem Qualifiers (1) Eye pain: Qualified Code: H57.11 - Pain of right eye Kevin Nichols MD Oct 13, 2016 13:36
[2016-10-13 14:00] VITALS: BP 124/76; PULSE 74; RESP 19; TEMP 96.9; O2SAT 96
[2016-10-13 16:00] VITALS: BP 124/68; PULSE 75; RESP 19; TEMP 98; O2SAT 96
[2016-10-13] MEDS ORDERED: IOHEXOL 350 MG/ML 10 ML VIAL (for RAD DIAG) IV ONE (18:00)
--- NOTE | 2016-10-13 18:16 | RADRPT ---
EXAM DATE/TIME: 10/13/2016 17:41 [facility] COMPARISON: CT BRAIN W/O CONTRAST, June 04, 2016, 16:42. CT ORBITS W CONTRAST, October 13, 2016, 17:44. INDICATIONS : Cephalgia; ocular syphilis. RADIATION DOSE: 49.72 CTDIvol (mGy) MEDICAL HISTORY : None SURGICAL HISTORY : None. ENCOUNTER: Initial ACUITY: 1 day PAIN SCALE: 5/10 LOCATION: Bilateral cranial TECHNIQUE: Multiple contiguous axial images were obtained of the head. Using automated exposure control and adj ustment of the mA and/or kV according to patient size, radiation dose was kept as low as reasonably a chievable to obtain optimal diagnostic quality images. DICOM format image data is available electro nically for review and comparison. FINDINGS: CEREBRUM: The ventricles are normal for age. No evidence of midline shift, mass lesion, hemorrhage or acute in farction. No extra-axial fluid collections are seen. POSTERIOR FOSSA: The cerebellum and brainstem are intact. The 4th ventricle is midline. The cerebellopontine angle i s unremarkable. EXTRACRANIAL: The visualized portion of the orbits is intact. SKULL: The calvaria is intact. No evidence of skull fracture. CONCLUSION: No acute intracranial findings. Julio Abarca MD on October 13, 2016 at 18:13 Board Certified Radiologist. This report was verified electronically.
--- NOTE | 2016-10-13 18:21 | RADRPT ---
EXAM DATE/TIME: 10/13/2016 17:44 [facility] COMPARISON: No previous studies available for comparison. INDICATIONS : Cephalgia; ocular syphilis. IV CONTRAST: 100 cc Omnipaque 350 (iohexol) IV RADIATION DOSE: 56.42 CTDIvol (mGy) MEDICAL HISTORY : None SURGICAL HISTORY : None. ENCOUNTER: Initial ACUITY: 1 day PAIN SCALE: 5/10 LOCATION: Bilateral facial TECHNIQUE: Volumetric scanning of the orbits was performed. Using automated exposure control and adjustment of the mA and/or kV according to patient size, radiation dose was kept as low as reasonably achievable t o obtain optimal diagnostic quality images. DICOM format image data is available electronically for review and comparison. FINDINGS: PRESEPTAL: The preseptal soft tissues are normal thickness. GLOBES: Normal shape without wall thickening. The lens is grossly intact. EXTRAOCULAR MUSCLES: Symmetric and normal thickness. ORBITAL LESLIE: Intact. The greater wing of the sphenoid is intact. OPTIC NERVES: There is slight asymmetry in size of the optic nerves with the right being slightly thicker than the left diffusely. LACRIMAL GLANDS: No evidence of mass. RETROAPIACL REGION: The optic chiasm is grossly intact. The visualized portion of the cavernous sinus and brainstem is i ntact. CONCLUSION: Asymmetry in the size of the optic nerves with the right being slightly larger than the right. Otherw ise within normal limits. Julio Abarca MD on October 13, 2016 at 18:16 Board Certified Radiologist. This report was verified electronically.
[2016-10-13 20:00] VITALS: BP 120/69; PULSE 72; RESP 20; TEMP 97.6; O2SAT 96
[2016-10-14] VITALS: BP 108/64; PULSE 66; RESP 20; TEMP 97.2; O2SAT 98
[2016-10-14] MEDS: ACETAMINOPHEN/HYDROcodone 325 MG/10 MG TAB PO PRN ×6 (00:37→23:06)
[2016-10-14] MEDS: PENICILLIN G SODIUM INJ 3,000,000 UNITS in SODIUM CHLORIDE 0.9% INJ 100 ML IV SCH ×3 (00:37→07:53)
[2016-10-14] MEDS: MORPHINE SULFATE 4 MG/ML INJ IV PUSH PRN ×5 (02:00→20:13)
[2016-10-14 04:07] LABS: CHLAMYDIA PCR NOT DETECTED (NOT DETECT); NEISSERIA PCR NOT DETECTED (NOT DETECT)
[2016-10-14] MEDS: DOCUSATE SODIUM 50 MG/SENNA 8.6 MG TAB PO SCH ×2 (07:53→19:55)
[2016-10-14] MEDS: SODIUM CHLORIDE 0.9% FLUSH 10 ML FLUSH IV FLUSH SCH ×2 (07:53→19:55)
[2016-10-14 08:00] VITALS: BP 127/80; PULSE 66; RESP 17; TEMP 96.8; O2SAT 97
--- NOTE | 2016-10-14 08:06 | HHI.PR ---
Subjective Remarks going for LP this am no fever or chills still having generalized headache "mild" , blurring of vision specifically of the right eye no neck pain, nausea or vomiting Objective Vitals Vital Signs Date Time Temp Pulse Resp B/P Pulse Ox O2 Delivery O2 Flow Rate FiO2 10/14/16 00:00 97.2 66 20 108/64 98 10/13/16 20:00 97.6 72 20 120/69 96 10/13/16 16:00 98.0 75 19 124/68 96 10/13/16 14:00 96.9 74 19 124/76 96 I/O 10/13/16 10/13/16 10/13/16 10/14/16 10/14/16 10/14/16 06:59 14:59 22:59 06:59 14:59 22:59 Intake Total 1020 ml 1889 ml 460 ml 300 ml Output Total 675 ml 1200 ml 1275 ml Balance 345 ml 689 ml 460 ml -975 ml Intake Oral 240 ml 1080 ml 360 ml 0 ml IV Total 780 ml 809 ml 100 ml 300 ml Output Urine Total 675 ml 1200 ml 1275 ml # Voids 4 # Bowel Movements 0 Result Diagram: 10/12/16 0609 10/12/16 0609 Imaging Last Impressions Orbit CT 10/13/16 0000 Signed Impressions: Service Date/Time: Thursday, October 13, 2016 17:44 - CONCLUSION: Asymmetry in the size of the optic nerves with the right being slightly larger than the right. Otherwise within normal limits. Julio Abarca MD Head CT 10/13/16 0000 Signed Impressions: Service Date/Time: Thursday, October 13, 2016 17:41 - CONCLUSION: No acute intracranial findings. Julio Abarca MD Chest X-Ray 10/11/16 191 Signed Impressions: Service Date/Time: Tuesday, October 11, 2016 19:35 - CONCLUSION: 1. No acute findings. Mild hyperinflation. 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 Ocular Syphilis: recent diagnosis of Vitreitis w/ minimal improvement after antibiotic gtts, referred to ER by Computer Application Developer Dr. Montes De Oca for IV Abx as outpatient blood work +Syphilis. continue w/ PCN G 3mill q4h. Orbital CT with asymmetry of the size of the optic nerve 10/13 ID consulted, appreciate recommendations. Continue penicillin IV every 4 hours, LP to eval for neurosyphilis. H IV 1 and 2 antibodies pending. 2. Eye Pain: Right. Secondary to above. Analgesics as needed. Chlamydiae and GC negative IV Morphine prn for pain 3. Dehydration: Urinalysis negative. IMproved 4. DVT Prophylaxis: SCD/Teds. 5. Social work for d/c planning as needed. Problem Qualifiers (1) Eye pain: Qualified Code: H57.11 - Pain of right eye Marissa Bradley MD Oct 14, 2016 08:06 Marissa Bradley MD Oct 14, 2016 08:06 Marissa Bradley MD Oct 14, 2016 08:06
--- NOTE | 2016-10-14 08:50 | PD.RAD ---
Post Procedure Progress Note Pre Procedure Diagnosis: (1) Ocular syphilis Post Procedure Diagnosis: (1) Ocular syphilis Procedure Date: Oct 14, 2016 Supervising Radiologist: Robbin Celestin JR Proceduralist/Assist: RT Rajiv(R), RT Stephen(R) Anesthesia: Local Plan of Activity Patient to Unit: Nursing Unit Patient Condition: Good See PACS Report for procedural detail/treatment Spinal Procedure L3-L4 Fluid Removal (CCs): 11 Fluid Description: Clear Puncture Time: 08:40 Findings: Opening pressure: 20.4 cm H2O Jr. Fawad,Robbin Buitrago MD Oct 14, 2016 08:50
--- NOTE | 2016-10-14 10:09 | RADRPT ---
EXAM DATE/TIME: 10/14/2016 08:24 [facility] COMPARISON: No previous studies available for comparison. INDICATIONS : Patient with history of ocular syphilis in need of lumbar puncture. MEDICAL HISTORY : Blurry vision, Right eye pain SURGICAL HISTORY : Tonsillectomy, Bilateral ear tubes ENCOUNTER: Initial ACUITY: 1 month PAIN SCORE: 0/10 LUMBAR PUNCTURE TIME: 0840 hours FLUORO TIME: 1 minutes IMAGE SERIES: 0 ACCESS LEVEL: L3-4 OPENING PRESSURE: 20.4 cm of water CLOSING PRESSURE: Not requested. FLUID: 11.5 cc of clear CSF was collected and sent to the laboratory for analysis. PROCEDURE : 1. Fluoroscopic guided lumbar puncture. 2. Recording of opening pressure. The risks, benefits and alternatives to the procedure were explained and verbal and written consent w as obtained. The site was prepped in sterile fashion. Full sterile technique was used, including ca p, mask, sterile gloves and gown and a large sterile sheet. Hand hygiene and 2% chlorhexidine and/or betadine/alcohol prep was utilized per protocol for cutaneous antisepsis. The skin and subcutaneous tissues were infiltrated with local anesthetic solution. With fluoroscopic guidance the lumbar thecal sac was punctured at the above level described above and the opening pressure was recorded. The above described fluid was removed without difficulty. The patient tolerated the procedure well and there were no complications. CONCLUSION: Uncomplicated fluoroscopically guided lumbar puncture with pressures as above. Robbin Celestin Jr., MD on October 14, 2016 at 10:05 Board Certified Radiologist. This report was verified electronically.
[2016-10-14 10:17] LABS: GROSS BLOOD TUBE #1 0 (0); SUPERNATE COLOR TUBE #1 CLEAR (CLEAR); SUPERNATE COLOR TUBE #2 CLEAR (CLEAR)
[2016-10-14 10:18] LABS: CSF LYMPHOCYTES 94 %; CSF MONOCYTES 6 %; CSF NEUTROPHILS 0 %; GROSS BLOOD TUBE #2 0 (0); GROSS BLOOD TUBE #3 0 (0); GROSS BLOOD TUBE #4 0 (0); SUPERNATE COLOR TUBE #3 CLEAR (CLEAR); SUPERNATE COLOR TUBE #4 CLEAR (CLEAR); VOLUME TUBE # 3 2.5 ML; WBC TUBE #4 11 /MM3 (0-10)
[2016-10-14 12:00] VITALS: BP 116/70; PULSE 62; RESP 17; TEMP 96.2; O2SAT 96
[2016-10-14] MEDS: PENICILLIN G SODIUM INJ 4,000,000 UNITS in SODIUM CHLORIDE 0.9% INJ 100 ML IV SCH ×3 (12:51→19:55)
[2016-10-14 16:00] VITALS: BP 127/69; PULSE 64; RESP 17; TEMP 97.5; O2SAT 97
[2016-10-14 20:00] VITALS: BP 125/73; PULSE 71; RESP 18; TEMP 98.4; O2SAT 96
[2016-10-15] VITALS: BP 123/84; PULSE 70; RESP 18; TEMP 98; O2SAT 96
[2016-10-15] MEDS: MORPHINE SULFATE 4 MG/ML INJ IV PUSH PRN ×5 (00:01→23:15)
[2016-10-15] MEDS: PENICILLIN G SODIUM INJ 4,000,000 UNITS in SODIUM CHLORIDE 0.9% INJ 100 ML IV SCH ×7 (00:01→23:53)
[2016-10-15] MEDS: ACETAMINOPHEN/HYDROcodone 325 MG/10 MG TAB PO PRN ×5 (03:58→22:17)
--- NOTE | 2016-10-15 07:51 | HHI.PR ---
Subjective Remarks no complains of headache, or eye pain this am no neck pain or back pain tolerated LP yesterday up and ambulating Objective Vitals Vital Signs Date Time Temp Pulse Resp B/P Pulse Ox O2 Delivery O2 Flow Rate FiO2 10/15/16 04:58 18 10/15/16 00:06 17 10/15/16 00:00 98.0 70 18 123/84 96 10/14/16 20:00 98.4 71 18 125/73 96 10/14/16 16:00 97.5 64 17 127/69 97 10/14/16 12:00 96.2 62 17 116/70 96 10/14/16 08:00 96.8 66 17 127/80 97 I/O 10/14/16 10/14/16 10/14/16 10/15/16 10/15/16 10/15/16 07:00 15:00 23:00 07:00 15:00 23:00 Intake Total 300 ml 1396 ml 100 ml Output Total 1275 ml 775 ml 300 ml Balance -975 ml 621 ml -200 ml Intake Oral 0 ml 1196 ml IV Total 300 ml 200 ml 100 ml Output Urine Total 1275 ml 775 ml 300 ml # Voids 0 # Bowel Movements 0 Result Diagram: 10/12/16 0609 10/12/16 0609 Imaging Last Impressions Lumbar Puncture Fluoroscopy 10/14/16 0000 Signed Impressions: Service Date/Time: Friday, October 14, 2016 08:24 - CONCLUSION: Uncomplicated fluoroscopically guided lumbar puncture with pressures as above. Robbin Celestin Jr., MD Orbit CT 10/13/16 0000 Signed Impressions: Service Date/Time: Thursday, October 13, 2016 17:44 - CONCLUSION: Asymmetry in the size of the optic nerves with the right being slightly larger than the right. Otherwise within normal limits. Julio Abarca MD Head CT 10/13/16 0000 Signed Impressions: Service Date/Time: Thursday, October 13, 2016 17:41 - CONCLUSION: No acute intracranial findings. Julio Abarca MD Chest X-Ray 10/11/161916 Signed Impressions: Service Date/Time: Tuesday, October 11, 2016 19:35 - CONCLUSION: 1. No acute findings. Mild hyperinflation. 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 Montes De Oca for IV Abx as outpatient blood work +Syphilis. continue PCN G- dose increased to 4 mil units q4h. 10/[address] with asymmetry of the size of the optic nerve. Head CT negative. HIV negative Eye Pain: Right. Secondary to above. Analgesics as needed. Chlamydiae and GC negative IV Morphine prn for pain -- taper doseand po pain meds. Dehydration: Urinalysis negative. IMproved - clinically good po. DVT Prophylaxis: SCD/Teds. - up and ambulating Social work for d/c planning as needed.- CM- DC planning- not ready for DC on q 4 IV antibiotics, awaiting LP results Problem Qualifiers (1) Eye pain: Qualified Code: H57.11 - Pain of right eye Marissa Bradley MD Oct 15, 2016 07:51 Marissa Bradley MD Oct 15, 2016 07:51
[2016-10-15 08:00] VITALS: BP 131/69; PULSE 82; RESP 18; TEMP 97.3; O2SAT 96
[2016-10-15] MEDS: SODIUM CHLORIDE 0.9% FLUSH 10 ML FLUSH IV FLUSH SCH ×2 (08:36→19:50)
[2016-10-15] MEDS: DOCUSATE SODIUM 50 MG/SENNA 8.6 MG TAB PO SCH ×2 (08:40→19:50)
[2016-10-15 12:00] VITALS: BP 119/68; PULSE 73; RESP 18; TEMP 97.6; O2SAT 92
[2016-10-15 16:00] VITALS: BP 130/82; PULSE 74; RESP 18; TEMP 96.1; O2SAT 92
[2016-10-15 20:00] VITALS: BP 125/70; PULSE 72; RESP 17; TEMP 96.1; O2SAT 96
[2016-10-16] VITALS: BP 126/71; PULSE 68; RESP 17; TEMP 98.2; O2SAT 97
[2016-10-16] MEDS: ACETAMINOPHEN/HYDROcodone 325 MG/10 MG TAB PO PRN ×5 (02:19→20:25)
[2016-10-16 03:49] LABS: CD4/CD8 RATIO 1.5 (0.86-5.00)
[2016-10-16] MEDS: PENICILLIN G SODIUM INJ 4,000,000 UNITS in SODIUM CHLORIDE 0.9% INJ 100 ML IV SCH ×6 (03:58→23:38)
[2016-10-16] MEDS: MORPHINE SULFATE 4 MG/ML INJ IV PUSH PRN ×4 (05:09→23:32)
[2016-10-16 08:00] VITALS: BP 106/57; PULSE 84; RESP 17; TEMP 97.7; O2SAT 96
[2016-10-16] MEDS: SODIUM CHLORIDE 0.9% FLUSH 10 ML FLUSH IV FLUSH SCH ×2 (08:09→20:23)
[2016-10-16] MEDS: DOCUSATE SODIUM 50 MG/SENNA 8.6 MG TAB PO SCH ×2 (08:09→20:15)
--- NOTE | 2016-10-16 08:11 | HHI.PR ---
Subjective Remarks no nausea or vomiting, or neck pain still with retroorbital pain, vision states improved but still blurred- seeing little spots around - appears very comfortable no fever or chills Objective Vitals Vital Signs Date Time Temp Pulse Resp B/P Pulse Ox O2 Delivery O2 Flow Rate FiO2 10/16/16 05:14 18 10/16/16 03:19 18 10/16/16 00:00 98.2 68 17 126/71 97 10/15/16 20:00 96.1 72 17 125/70 96 10/15/16 16:00 96.1 74 18 130/82 92 10/15/16 12:00 97.6 73 18 119/68 92 I/O 10/15/16 10/15/16 10/15/16 10/16/16 10/16/16 10/16/16 06:59 14:59 22:59 06:59 14:59 22:59 Intake Total 1168 ml 340 ml 440 ml Output Total 800 ml Balance 1168 ml 340 ml -360 ml Intake Oral 960 ml 240 ml 240 ml IV Total 208 ml 100 ml 200 ml Output Urine Total 800 ml # Voids 0 4 2 # Bowel Movements 1 Result Diagram: 10/12/16 0609 10/12/16 0609 Imaging Last Impressions Lumbar Puncture Fluoroscopy 10/14/16 0000 Signed Impressions: Service Date/Time: Friday, October 14, 2016 08:24 - CONCLUSION: Uncomplicated fluoroscopically guided lumbar puncture with pressures as above. Robbin Celestin Jr., MD Orbit CT 10/13/16 0000 Signed Impressions: Service Date/Time: Thursday, October 13, 2016 17:44 - CONCLUSION: Asymmetry in the size of the optic nerves with the right being slightly larger than the right. Otherwise within normal limits. Julio Abarca MD Head CT 10/13/16 0000 Signed Impressions: Service Date/Time: Thursday, October 13, 2016 17:41 - CONCLUSION: No acute intracranial findings. Julio Abarca MD Chest X-Ray 10/11/161916 Signed Impressions: Service Date/Time: Tuesday, October 11, 2016 19:35 - CONCLUSION: 1. No acute findings. Mild hyperinflation. 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 Montes De Oca for IV Abx as outpatient blood work + Syphilis. continue PCN G- dose increased to 4 mil units q4h. 10/[address] with asymmetry of the size of the optic nerve. Head CT negative. HIV negative will get Opthalmology consult for ff up exam Eye Pain: Right. Secondary to above. Analgesics as needed. Chlamydiae and GC negative IV Morphine prn for pain --1 mg q 6 prn for breakthrough pain, Lortab q 4 d/w him pain meds Ophthalmology consult for ff up- seen as OP Dehydration:resolved - clinically good po. DVT Prophylaxis: SCD/Teds. - up and ambulating Social work for d/c planning as needed.- CM- DC planning- not ready for DC on q 4 IV antibiotics at least 2 weeks - OP Problem Qualifiers (1) Eye pain: Qualified Code: H57.11 - Pain of right eye Marissa Bradley MD Oct 16, 2016 08:11
--- NOTE | 2016-10-16 11:20 | PD.CONS ---
History of Present Illness Service Ophthalmology Consult Requested By Reason for Consult ocular syphilis Primary Care Physician No Primary Care Physician Diagnoses: History of Present Illness 61 yo WM developed right eye redness and vision loss. Diagnosed by Dr. Nilo Montes De Oca ([facility]) to have vitritis. Labwork was ordered and came back + for RPR 1: 128 with reactive FTA -ABS so he was sent to [place] for IV antibiotics. On day 6 of 14 for Penicillin G. LP done yesterday - CSF VDRL pending. States his vision has been about the same since he last saw . c/o severe headache and keeps asking for pain medication. No other significant ocular history. Past Family Social History Allergies: Coded Allergies: No Known Allergies (Verified , 09/25/16) Physical Exam Vital Signs Vital Signs Date Time Temp Pulse Resp B/P Pulse Ox O2 Delivery O2 Flow Rate FiO2 10/16/16 08:00 97.7 84 17 106/57 96 10/16/16 05:14 18 10/16/16 03:19 18 10/16/16 00:00 98.2 68 17 126/71 97 10/15/16 20:00 96.1 72 17 125/70 96 10/15/16 16:00 96.1 74 18 130/82 92 10/15/16 12:00 97.6 73 18 119/68 92 Physical Exam Va cc at near OD 20/200, OS 20/40 EOM full OU, no diplopia CVF full OS, unable OD Pupils OD 3mm min reactive, OS 2-1 IOP normal to palpation OU Anterior exam OD - normal eyelid, C/S W&Q, K clear, AC deep, pupil round, cataract OS - normal eyelid, C/S W&Q, K clear, AC deep, pupil round, cataract Dilated exam OD only OD - no view due to vitreous hemorrhage Laboratory Date/Time Procedure Status Source Growth 10/14/16 08:40 Cancelled Cerebral Spinal Fluid Lumbar Puncture Result Diagram: 10/12/1660810/12/16 06 Assessment and Plan Problem List: (1) Ocular syphilis Status: Acute Plan: OD vision stable at 20/200. No view to retina due to vitreous hemorrhage. Recommend restarting Pred Forte 1% QID OD. Pt refuses to restart Atropine. Follow up with as outpatient once 2 week course of Pen G complete. Mirella Baldwin MD Oct 16, 2016 11:20
[2016-10-16 12:00] VITALS: BP 112/69; PULSE 69; RESP 18; TEMP 97.5; O2SAT 95
[2016-10-16] MEDS: prednisoLONE ACETATE 1% OPHT SUSP 5 ML BTL RIGHT EYE SCH ×3 (13:43→20:24)
[2016-10-16 16:00] VITALS: BP 118/78; PULSE 75; RESP 17; TEMP 97.2; O2SAT 97
[2016-10-16 16:31] LABS: BICARBONATE 30.6 MEQ/L (21.0-32.0); POTASSIUM 4.1 MEQ/L (3.5-5.1)
--- NOTE | 2016-10-16 17:04 | HHI.IDPN ---
Subjective Subjective Remarks CSF results cw neurosyphilis with lymphocytic pleocytosis, VDRL P HIV negative no fever tolerates abx OK co rash in the groins co blurry vision with R eye Antibiotics PCN G 24 mln U daily Allergies: Coded Allergies: No Known Allergies (Verified , 09/25/16) Objective . Vital Signs Date Time Temp Pulse Resp B/P Pulse Ox O2 Delivery O2 Flow Rate FiO2 10/16/16 16:00 97.2 75 17 118/78 97 10/16/16 12:00 97.5 69 18 112/69 95 10/16/16 08:00 97.7 84 17 106/57 96 10/16/16 05:14 18 10/16/16 03:19 18 10/16/16 00:00 98.2 68 17 126/71 97 10/15/16 20:00 96.1 72 17 125/70 96 10/15/16 10/15/16 10/16/16 15:00 23:00 07:00 Intake Total 1168 ml 340 ml 440 ml Output Total 800 ml Balance 1168 ml 340 ml -360 ml Intake Oral 960 ml 240 ml 240 ml IV Total 208 ml 100 ml 200 ml Output Urine Total 800 ml # Voids 4 2 # Bowel Movements 1 . Laboratory Tests Test 10/16/16 15:05 Sodium Level 139 MEQ/L Potassium Level 4.1 MEQ/L Chloride Level 102 MEQ/L Carbon Dioxide Level 30.6 MEQ/L Anion Gap 6 MEQ/L Blood Urea Nitrogen 23 MG/DL Creatinine 1.07 MG/DL Estimat Glomerular Filtration 70 ML/MIN Rate Random Glucose 101 MG/DL Calcium Level 9.0 MG/DL Microbiology Date/Time Procedure Status Source Growth 10/14/16 08:40 Cancelled Cerebral Spinal Fluid Lumbar Puncture Imaging Last Impressions Lumbar Puncture Fluoroscopy 10/14/16 0000 Signed Impressions: Service Date/Time: Friday, October 14, 2016 08:24 - CONCLUSION: Uncomplicated fluoroscopically guided lumbar puncture with pressures as above. Robbin Celestin Jr., MD Orbit CT 10/13/16 0000 Signed Impressions: Service Date/Time: Thursday, October 13, 2016 17:44 - CONCLUSION: Asymmetry in the size of the optic nerves with the right being slightly larger than the right. Otherwise within normal limits. Julio Abarca MD Head CT 10/13/16 0000 Signed Impressions: Service Date/Time: Thursday, October 13, 2016 17:41 - CONCLUSION: No acute intracranial findings. Julio Abarca MD Chest X-Ray 10/11/161916 Signed Impressions: Service Date/Time: Tuesday, October 11, 2016 19:35 - CONCLUSION: 1. No acute findings. Mild hyperinflation. Ravi Casiano MD Physical Exam CONSTITUTIONAL/GENERAL: This is an adequately nourished patient, in no apparent distress. TUBES/LINES/DRAINS: SKIN: No jaundice, Few small papular rash in the groins mostly cw heat rash EYES: Pupils are small R eye is not appearing injected . Extraocular motions intact. No scleral icterus. No injection or drainage. Fundi not examined. ENT: Hearing grossly normal. Oral mucosae without visible erythema, exudates, masses, or lesions. NECK: Trachea midline. Supple, nontender. No palpable thyroid enlargement or nodularity. CARDIOVASCULAR: Regular rate and rhythm without murmurs, gallops, or rubs. No JVD. Peripheral pulses symmetric. RESPIRATORY/CHEST: Symmetric, unlabored respirations. Clear to auscultation. Breath sounds equal bilaterally. No wheezes, rales, or rhonchi. GASTROINTESTINAL: Abdomen soft, non-tender, nondistended. MUSCULOSKELETAL: Extremities without clubbing, cyanosis, or edema. LYMPHATICS: No palpable cervical or supraclavicular adenopathy. NEUROLOGICAL: Awake and alert. Motor and sensory grossly within normal limits. Follows commands. Cognitively sharp. Normal speech Moves all extremities. PSYCHIATRIC: No obvious anxiety/depression. no apparent hallucinations or other psychotic thought process. Assessment & Plan Remarks Ocular syphilis, OD Confirmed neurosyphilis: - lymphoctic pleu=ocytosis present - VDRL P Newly diagnosed syphlis of unknown duration HIV negative GC/chlam negative cont PCN G 18- 25 mln unit /day x 14 days - OK to dc home on IV pump FU requirements: Neurologic examination and lumbar puncture at three to six months after treatment and every six months thereafter until the CSF VDRL and white blood cell count are normal Failure of the CSF WBC count to decrease 6 months after therapy or failure of CSF-VDRL to decline fourfold one year after therapy are indications for re-treatment. The CSF white blood cell count should decline by six months after successful treatment, and all CSF abnormalities should resolve by two years after treatment OPAT form filled out dw Dr neena miguel case [facility] Cristal Lira MD Oct 16, 2016 17:04
--- NOTE | 2016-10-16 17:07 | HHI.FF ---
Infusion Therapy Location of Infusion Therapy: Ambulatory Infusion Therapy Order Patient Information Patient Weight 84.8 kg Diagnosis: Diagnosis neuro and ocular syphilis Coded Allergies: No Known Allergies (Verified , 09/25/16) Administer Medication Penicillin G Sodium 20 million units IV Continuous with pump (over 24 hrs ) Start Treatment: Oct 17, 2016 Stop Treatment: Oct 25, 2016 Additional Information Venous access: PICC Line Additional Instructions [x] Peripheral flush and dressing changes per protocol [x] Implanted port and central construction lineman: * Implanted port: 10 ml Normal Saline followed by 5 ml Heparin 100 units/ml Heparin flush after each use and monthly to maintain. [] May leave port accessed during therapy. [] May leave peripheral site accessed for duration of therapy. [x] If patient has SOB or respiratory distress, check oxygen saturation. If less than 90% or clinical signs of respiratory distress, administer oxygen at 2 L/min. via nasal cannula and notify physician. [x] Anaphylaxis/Reaction orders: * Stop infusion. * Keep IV line open with saline flush. * Notify physician. * Monitor vital signs every 15 minutes until symptoms resolve. * Check Oxygen saturation; Oxygen at 2 L/min. via nasal cannula if less than 90% or clinical signs of respiratory distress. * Administer diphenhydramine (Benadryl) 25 mg IV STAT, (unless patient has received as pre-med). May repeat once, if necessary. * Solu-Cortef 250 mg IVP over 30-60 seconds, use 100 mg vials for each dissolution. * Epinephrine (1mg/1 ml) 0.3 mg subcutaneously or IVP now with any signs of respiratory distress. * Check with physician for new additional pre-med orders if patient is re- challenged or re-treated. [x] May remove PICC line when treatment complete, after confirming with Physician. [x] If the patient is admitted to the hospital, the ED, or transferred via [facility] , complete transfer form including medication reconciliation order sheet. Laboratory Tests Weekly Labs: CBC w/diff, Creatinine, LFT's (Hepatic function test) Cristal Lira MD Oct 16, 2016 17:07
[2016-10-16] MEDS ORDERED: EPIN1INJ21 SQ (17:08)
[2016-10-16] MEDS ORDERED: EPIN1INJ21 IV PUSH (17:08)
[2016-10-16] MEDS ORDERED: PENI5INJ IV (17:08)
[2016-10-16] MEDS ORDERED: SOLU250I IV PUSH (17:08)
[2016-10-17] VITALS: BP 107/61; PULSE 71; RESP 16; TEMP 97.1; O2SAT 94
[2016-10-17] MEDS: PENICILLIN G SODIUM INJ 4,000,000 UNITS in SODIUM CHLORIDE 0.9% INJ 100 ML IV SCH ×6 (05:47→23:50)
[2016-10-17 08:00] VITALS: BP 115/54; PULSE 58; RESP 17; TEMP 97.2; O2SAT 94
--- NOTE | 2016-10-17 08:25 | HHI.PR ---
Subjective Remarks This is a pleasant 61 y/o male with Anxiety, referred by Ophthalmology specialist for treatment of Ocular Syphilis Initially diagnosed w/ Vitreitis and was prescribed Antibiotic gtt and Cycloplegics, reports compliance w/ antibiotics. Later [facility] and multiple laboratory taken was told he had Syphilis, continue with retroorbital pain blurred vision. 10/17: Seen in his bedroom and discussed with nurse Miss Montelongo awaiting for discharge recommendations by geriatric case manager, discussed at this time with [employer] and she will notify me during the day for discharge arrangements when this are done, bus tickets, and antibiotics and HHC not yet arranged, patient asked for pain medicine on discharge no nausea vomit or diarrhea. Objective Vital Signs Date Time Temp Pulse Resp B/P Pulse Ox O2 Delivery O2 Flow Rate FiO2 10/17/16 00:00 97.1 71 16 107/61 94 10/16/16 16:00 97.2 75 17 118/78 97 10/16/16 12:00 97.5 69 18 112/69 95 I/O 10/16/16 10/16/16 10/16/16 10/17/16 10/17/16 10/17/16 06:59 14:59 22:59 06:59 14:59 22:59 Intake Total 440 ml 1600 ml 100 ml 860 ml Output Total 800 ml 900 ml 1500 ml Balance -360 ml 700 ml 100 ml -640 ml Intake Oral 240 ml 1400 ml 860 ml IV Total 200 ml 200 ml 100 ml Output Urine Total 800 ml 900 ml 1500 ml # Bowel Movements 1 0 Result Diagram: 10/16/16 1505 Imaging Last Impressions Lumbar Puncture Fluoroscopy 10/14/16 0000 Signed Impressions: Service Date/Time: Friday, October 14, 2016 08:24 - CONCLUSION: Uncomplicated fluoroscopically guided lumbar puncture with pressures as above. Robbin Celestin Jr., MD Orbit CT 10/13/16 0000 Signed Impressions: Service Date/Time: Thursday, October 13, 2016 17:44 - CONCLUSION: Asymmetry in the size of the optic nerves with the right being slightly larger than the right. Otherwise within normal limits. Julio Abarca MD Head CT 10/13/16 0000 Signed Impressions: Service Date/Time: Thursday, October 13, 2016 17:41 - CONCLUSION: No acute intracranial findings. Julio Abarca MD Chest X-Ray 8/11/17 1917 Signed Impressions: Service Date/Time: Tuesday, October 11, 2016 19:35 - CONCLUSION: 1. No acute findings. Mild hyperinflation. Ravi Casiano MD Procedures 10/14- LP Other Results Laboratory Tests Test 10/13/16 10/14/16 10/14/16 10/14/16 04:30 02:00 05:14 08:40 HIV (1&2) Antibody NEGATIVE Chlamydia trachomatis DNA NOT DETECTED (PCR) Neisseria gonorrhoeae DNA NOT DETECTED (PCR) Absolute Lymphocytes (Cell 4071 Immunity Percent CD3 Cells 76 % Absolute CD3 Count 3114 Percent CD3-/CD16+/CD56+ Cells 5 % Absolute CD3-/CD16+/CD56+ 183 Count Percent CD4 Cells 44 % Absolute CD4 Count 1801 T-[place]/Suppressor Ratio 1.5 Percent CD8 Cells 30 % Absolute CD8 Count 1230 Percent CD19 Cells 18 % Absolute CD19 Count 741 CSF Volume (Tube 1) 2.0 ML CSF Supernatant Color (tube 1) CLEAR CSF Gross Blood (Tube 1) 0 CSF Volume (Tube 2) 3.0 ML CSF Supernatant Color (tube 2) CLEAR CSF Gross Blood (Tube 2) 0 CSF Volume (Tube 3) 2.5 ML CSF Supernatant Color (tube 3) CLEAR CSF Gross Blood (Tube 3) 0 CSF Volume (Tube 4) 3.0 ML CSF Supernatant Color (tube 4) CLEAR CSF Gross Blood (Tube 4) 0 CSF WBC (Tube 4) 11 /MM3 CSF RBC (Tube 4) 3 /MM3 CSF Neutrophils 0 % CSF Lymphocytes 94 % CSF Monocytes 6 % CSF Glucose 51 MG/DL CSF VDRL NON-REACTIVE Test 10/16/16 10/16/16 14:36 15:05 Nasal Screen MRSA (PCR) MRSA NOT DETECTED Sodium Level 139 MEQ/L Potassium Level 4.1 MEQ/L Chloride Level 102 MEQ/L Carbon Dioxide Level 30.6 MEQ/L Anion Gap 6 MEQ/L Blood Urea Nitrogen 23 MG/DL Creatinine 1.07 MG/DL Estimat Glomerular Filtration 70 ML/MIN Rate Random Glucose 101 MG/DL Calcium Level 9.0 MG/DL Objective Remarks GENERAL: No acute distress. SKIN: Warm and dry. HEAD: Atraumatic. Normocephalic. EYES: mild erythema/injection fo the right sclerae- improved, pupils equal on today's exam , blurred vision right eye ENT: No nasal bleeding or discharge. Mucous membranes pink and moist. NECK: Trachea midline. No JVD. CARDIOVASCULAR: Regular rate and rhythm. RESPIRATORY: No accessory muscle use. Clear to auscultation. Breath sounds equal bilaterally. GASTROINTESTINAL: Abdomen soft, non-tender, nondistended. Hepatic and splenic margins not palpable. MUSCULOSKELETAL: Extremities without clubbing, cyanosis, or edema. No obvious deformities. NEUROLOGICAL: Awake and alert. No obvious cranial nerve deficits. Motor grossly within normal limits. Five out of 5 muscle strength in the arms and legs. Normal speech. PSYCHIATRIC: Appropriate mood and affect; insight and judgment normal. Medications and IVs Current Medications Medications (Trade) Dose Ordered Sig/Donell Route Start Time Stop Time Status Last Admin (NS Flush) 2 ml UNSCH PRN IV FLUSH 10/11/16 20:30 (NS Flush) 2 ml BID IV FLUSH 10/11/16 21:00 10/16/16 20:23 (Zofran Inj) 4 mg Q6H PRN IVP 10/11/16 20:30 (Tylenol) 650 mg Q6H PRN PO 10/11/16 20:30 ([place] 5-325 Mg) 1 tab Q4H PRN PO 10/11/16 20:30 ([place] 10-325 Mg) 1 tab Q4H PRN PO 10/11/16 20:30 10/16/16 20:25 (Vicki-Colace) 1 tab BID PO 10/11/16 21:00 10/12/16 08:18 (Milk Of Magnesia Liq) 30 ml Q12H PRN PO 10/11/16 20:30 (Senokot) 17.2 mg Q12H PRN PO 10/11/16 20:30 (Dulcolax Supp) 10 mg DAILY PRN RECTAL 10/11/16 20:30 Lactulose 30 ml 30 ml DAILY PRN PO 10/11/16 20:30 (Penicillin G Sodium Inj/NS Inj) 100 ml @ 200 mls/hr Q4H IV 10/14/16 12:00 10/17/16 05:47 (Morphine Inj) 1 mg Q6HR PRN IV PUSH 10/16/16 08:00 10/16/16 23:32 (Pred Forte 1% Opth Susp) 1 drop QID RIGHT EYE 10/16/16 13:00 10/16/16 20:24 A/P Assessment and Plan 61 years old male wears contact lens 1. Ocular Syphilis. seen by Ophthalmology specialist OD Vision 20/200, no view to retina due to vitreous Hemorrhage, recommended to re start Pred Forte 1% QID OD patient refuses to re start Atropine, follow outpatient once two weeks course of Pen G complete. 2. Neurosyphillis VDRL Positive, to continue Penicillin G dose increased to 4 Million every 4 hours until 10/14. Okay to Discharge Home on IV pump recommended Neurologic examination and Lumbar Puncture at three to six months after treatment and every six months thereafter until CSF VDRL and white blood cell count are normal. Failure of the CSF WBC count to decrease 6 months after therapy or failure of CSF-VDRL to decline fourfold one year after therapy are indications for re-treatment. The CSF white blood cell count should decline by six months after successful treatment, and all CSF abnormalities should resolve by two years after treatment 3. Eye Pain: Right. Secondary to above. Analgesics as needed. Chlamydiae and GC negative IV Morphine prn for pain --1 mg q 6 prn for breakthrough pain, Lortab q 4 d/w him pain meds Ophthalmology consult for ff up- seen as OP 4. Dehydration:resolved - clinically good po. DVT Prophylaxis: SCD/Teds. - up and ambulating Discussed with [employer] Artist [employer] for discharge she will call me when arrangements are done. CM- DC planning- not ready for DC on q 4 IV antibiotics at least 2 weeks - OP Yevgeniy Moncada MD Oct 17, 2016 08:25
[2016-10-17] MEDS: ACETAMINOPHEN/HYDROcodone 325 MG/10 MG TAB PO PRN ×4 (08:26→22:22)
[2016-10-17] MEDS: SODIUM CHLORIDE 0.9% FLUSH 10 ML FLUSH IV FLUSH SCH ×2 (08:26→22:21)
[2016-10-17] MEDS: DOCUSATE SODIUM 50 MG/SENNA 8.6 MG TAB PO SCH ×2 (08:26→22:21)
[2016-10-17] MEDS: prednisoLONE ACETATE 1% OPHT SUSP 5 ML BTL RIGHT EYE SCH ×4 (08:27→22:22)
[2016-10-17] MEDS: MORPHINE SULFATE 4 MG/ML INJ IV PUSH PRN (09:06)
[2016-10-17 12:00] VITALS: BP 122/77; PULSE 66; RESP 17; TEMP 97.4; O2SAT 95
[2016-10-17] MEDS ORDERED: SODIUM CHLORIDE 0.9% FLUSH 10 ML FLUSH IV FLUSH PRN (12:00)
--- NOTE | 2016-10-17 13:04 | RADRPT ---
EXAM DATE/TIME: 10/17/2016 12:18 [place] COMPARISON: CHEST SINGLE AP, October 11, 2016, 19:35. INDICATIONS : Evaluate PICC line placement MEDICAL HISTORY : Chronic obstructive pulmonary disease. SURGICAL HISTORY : None. ENCOUNTER: Subsequent ACUITY: 1 week PAIN SCORE: 0/10 LOCATION: chest FINDINGS: A right-sided PICC line has its tip in the SVC in good position. The heart is top normal in size. H e pulmonary vascular pattern is normal. The lungs are clear. An old fracture involving the posterio r aspect of the right 7th rib is noted. CONCLUSION: 1. No acute focal pulmonary infiltrate or pulmonary vascular congestion. 2. Right-sided PICC line has its tip in the SVC in good position. Capo Lr MD on October 17, 2016 at 12:57 Board Certified Radiologist. This report was verified electronically.
--- NOTE | 2016-10-17 15:49 | HHI.FF ---
Face to Face Verification Diagnosis: (1) Ocular syphilis Home Health Nursing Order: Medical education Signs/symptoms of disease process Medication education-adverse effect IV medication administration I have seen patient Sherman León on 10/17/16. My clinical findings support the need for the requested home health care services because: Ltd mobility - disease progression Deconditioned w/ increased weakness I certify that my clinical findings support that this patient is homebound because: Unsafe to leave home unassisted Yevgeniy Moncada MD Oct 17, 2016 15:49
[2016-10-17 16:00] VITALS: BP 120/66; PULSE 72; RESP 17; TEMP 97.6; O2SAT 95
[2016-10-17 20:00] VITALS: BP 119/73; PULSE 75; RESP 16; TEMP 97; O2SAT 97
[2016-10-18] VITALS: BP 113/64; PULSE 72; RESP 18; TEMP 96.6; O2SAT 92
[2016-10-18] MEDS: PENICILLIN G SODIUM INJ 4,000,000 UNITS in SODIUM CHLORIDE 0.9% INJ 100 ML IV SCH ×2 (03:14→07:45)
[2016-10-18] MEDS: ACETAMINOPHEN/HYDROcodone 325 MG/10 MG TAB PO PRN (07:45)
[2016-10-18] MEDS: DOCUSATE SODIUM 50 MG/SENNA 8.6 MG TAB PO SCH (07:46)
[2016-10-18] MEDS: SODIUM CHLORIDE 0.9% FLUSH 10 ML FLUSH IV FLUSH SCH (07:46)
[2016-10-18] MEDS: prednisoLONE ACETATE 1% OPHT SUSP 5 ML BTL RIGHT EYE SCH (07:46)
[2016-10-18 08:00] VITALS: BP 113/82; PULSE 89; RESP 18; TEMP 96.9; O2SAT 96
[2016-10-18] MEDS ORDERED: HYDR-3583 PO (08:12)
--- NOTE | 2016-10-18 08:16 | HHI.PR ---
Subjective Remarks This is a pleasant 61 y/o male with Anxiety, referred by Ophthalmology specialist for treatment of Ocular Syphilis Initially diagnosed w/ Vitreitis and was prescribed Antibiotic gtt and Cycloplegics, reports compliance w/ antibiotics. [facility] and multiple laboratory taken was told he had Syphilis, continue with retroorbital pain blurred vision. 10/17: Seen in his bedroom and discussed with nurse Miss Montelongo awaiting for discharge recommendations by embedded case manager, discussed at this time with Gas Manager and she will notify me during the day for discharge arrangements when this are done, bus tickets, and antibiotics and HHC not yet arranged, patient asked for pain medicine on discharge no nausea vomit or diarrhea. 10/18: Patient stable in his bedroom, discussed with Gas Manager today she has the patient ready for discharge, antibiotics as per ID specialist and follow up. no nausea, vomit or diarrhea. Objective Vital Signs Date Time Temp Pulse Resp B/P Pulse Ox O2 Delivery O2 Flow Rate FiO2 10/18/16 00:00 96.6 72 18 113/64 92 10/17/16 20:00 97.0 75 16 119/73 97 10/17/16 16:00 97.6 72 17 120/66 95 10/17/16 12:00 97.4 66 17 122/77 95 I/O 10/17/16 10/17/16 10/17/16 10/18/16 10/18/16 10/18/16 06:59 14:59 22:59 06:59 14:59 22:59 Intake Total 860 ml 1638 ml 920 ml Output Total 1500 ml 800 ml Balance -640 ml 1638 ml 120 ml Intake Oral 860 ml 1440 ml 720 ml IV Total 198 ml 200 ml Output Urine Total 1500 ml 800 ml # Voids 3 # Bowel Movements 0 1 0 Result Diagram: 10/16/16 1505 Imaging Last Impressions Chest X-Ray 10/17/16 0000 Signed Impressions: Service Date/Time: October 12:18 - CONCLUSION: 1. No acute focal pulmonary infiltrate or pulmonary vascular congestion. 2. Right-sided PICC line has its tip in the SVC in good position. Capo Lr MD Lumbar Puncture Fluoroscopy 10/14/16 0000 Signed Impressions: Service Date/Time: Friday, October 14, 2016 08:24 - CONCLUSION: Uncomplicated fluoroscopically guided lumbar puncture with pressures as above. Robbin Celestin Jr., MD Orbit CT 10/13/16 0000 Signed Impressions: Service Date/Time: Thursday, October 13, 2016 17:44 - CONCLUSION: Asymmetry in the size of the optic nerves with the right being slightly larger than the right. Otherwise within normal limits. Julio Abarca MD Head CT 10/13/16 0000 Signed Impressions: Service Date/Time: Thursday, October 13, 2016 17:41 - CONCLUSION: No acute intracranial findings. Julio Abarca MD Procedures 10/14- LP Other Results Laboratory Tests Test 10/13/16 10/14/16 10/14/16 10/14/16 04:30 02:00 05:14 08:40 HIV (1&2) Antibody NEGATIVE Chlamydia trachomatis DNA NOT DETECTED (PCR) Neisseria gonorrhoeae DNA NOT DETECTED (PCR) Absolute Lymphocytes (Cell 4071 Immunity Percent CD3 Cells 76 % Absolute CD3 Count 3114 Percent CD3-/CD16+/CD56+ Cells 5 % Absolute CD3-/CD16+/CD56+ 183 Count Percent CD4 Cells 44 % Absolute CD4 Count 1801 T-[place]/Suppressor Ratio 1.5 Percent CD8 Cells 30 % Absolute CD8 Count 1230 Percent CD19 Cells 18 % Absolute CD19 Count 741 CSF Volume (Tube 1) 2.0 ML CSF Supernatant Color (tube 1) CLEAR CSF Gross Blood (Tube 1) 0 CSF Volume (Tube 2) 3.0 ML CSF Supernatant Color (tube 2) CLEAR CSF Gross Blood (Tube 2) 0 CSF Volume (Tube 3) 2.5 ML CSF Supernatant Color (tube 3) CLEAR CSF Gross Blood (Tube 3) 0 CSF Volume (Tube 4) 3.0 ML CSF Supernatant Color (tube 4) CLEAR CSF Gross Blood (Tube 4) 0 CSF WBC (Tube 4) 11 /MM3 CSF RBC (Tube 4) 3 /MM3 CSF Neutrophils 0 % CSF Lymphocytes 94 % CSF Monocytes 6 % CSF Glucose 51 MG/DL CSF VDRL NON-REACTIVE Test 10/16/16 10/16/16 14:36 15:05 Nasal Screen MRSA (PCR) MRSA NOT DETECTED Sodium Level 139 MEQ/L Potassium Level 4.1 MEQ/L Chloride Level 102 MEQ/L Carbon Dioxide Level 30.6 MEQ/L Anion Gap 6 MEQ/L Blood Urea Nitrogen 23 MG/DL Creatinine 1.07 MG/DL Estimat Glomerular Filtration 70 ML/MIN Rate Random Glucose 101 MG/DL Calcium Level 9.0 MG/DL Objective Remarks GENERAL: No acute distress. SKIN: Warm and dry. HEAD: Atraumatic. Normocephalic. EYES: mild erythema/injection fo the right sclerae- improved, pupils equal on today's exam , blurred vision right eye ENT: No nasal bleeding or discharge. Mucous membranes pink and moist. NECK: Trachea midline. No JVD. CARDIOVASCULAR: Regular rate and rhythm. RESPIRATORY: No accessory muscle use. Clear to auscultation. Breath sounds equal bilaterally. GASTROINTESTINAL: Abdomen soft, non-tender, nondistended. Hepatic and splenic margins not palpable. MUSCULOSKELETAL: Extremities without clubbing, cyanosis, or edema. No obvious deformities. NEUROLOGICAL: Awake and alert. No obvious cranial nerve deficits. Motor grossly within normal limits. Five out of 5 muscle strength in the arms and legs. Normal speech. PSYCHIATRIC: Appropriate mood and affect; insight and judgment normal. Medications and IVs Current Medications Medications (Trade) Dose Ordered Sig/Donell Route Start Time Stop Time Status Last Admin (NS Flush) 2 ml UNSCH PRN IV FLUSH 10/11/16 20:30 (NS Flush) 2 ml BID IV FLUSH 10/11/16 21:00 10/17/16 22:21 (Zofran Inj) 4 mg Q6H PRN IVP 10/11/16 20:30 (Tylenol) 650 mg Q6H PRN PO 10/11/16 20:30 (Speonk 5-325 Mg) 1 tab Q4H PRN PO 10/11/16 20:30 (Speonk 10-325 Mg) 1 tab Q4H PRN PO 10/11/16 20:30 10/18/16 07:45 (Vicki-Colace) 1 tab BID PO 10/11/16 21:00 10/17/16 22:21 (Milk Of Magnesia Liq) 30 ml Q12H PRN PO 10/11/16 20:30 (Senokot) 17.2 mg Q12H PRN PO 10/11/16 20:30 (Dulcolax Supp) 10 mg DAILY PRN RECTAL 10/11/16 20:30 Lactulose 30 ml 30 ml DAILY PRN PO 10/11/16 20:30 (Penicillin G Sodium Inj/NS Inj) 100 ml @ 200 mls/hr Q4H IV 10/14/16 12:00 10/18/16 07:45 (Pred Forte 1% Opth Susp) 1 drop QID RIGHT EYE 10/16/16 13:00 10/18/16 07:46 (NS Flush) See Protocol DAILY IV FLUSH 10/18/16 09:00 (NS Flush) See Protocol UNSCH PRN IV FLUSH 10/17/16 12:00 (Heparin Central Flush) See Protocol DAILY IV FLUSH 10/18/16 09:00 10/18/16 07:45 (Heparin Central Flush) See Protocol UNSCH PRN IV FLUSH 10/17/16 12:00 (NS Flush) SEE PROTOCOL UNSCH PRN IV FLUSH 10/17/16 12:00 A/P Assessment and Plan 61 years old male wears contact lens 1. Ocular Syphilis. seen by Ophthalmology specialist OD Vision 20/200, no view to retina due to vitreous Hemorrhage, recommended to re start Pred Forte 1% QID OD patient refuses to re start Atropine, follow outpatient once two weeks course of Pen G complete. 2. Neurosyphillis VDRL Positive, to continue Penicillin G dose increased to 4 Million every 4 hours until 10/14. Okay to Discharge Home on IV pump recommended Neurologic examination and Lumbar Puncture at three to six months after treatment and every six months thereafter until CSF VDRL and white blood cell count are normal. Failure of the CSF WBC count to decrease 6 months after therapy or failure of CSF-VDRL to decline fourfold one year after therapy are indications for re-treatment. The CSF white blood cell count should decline by six months after successful treatment, and all CSF abnormalities should resolve by two years after treatment 3. Eye Pain: Right. Secondary to above. Analgesics as needed. Chlamydiae and GC negative IV Morphine prn for pain --1 mg q 6 prn for breakthrough pain, Lortab q 4 d/w him pain meds Ophthalmology consult for ff up- seen as OP 4. Dehydration:resolved - clinically good po. DVT Prophylaxis: SCD/Teds. - up and ambulating Discussed with Gas Manager she has everything ready for discharge given orders. CM- DC planning- not ready for DC on q 4 IV antibiotics at least 2 weeks - OP Discharge Planning Discharge Home with [facility] for antibiotics infusion. Yevgeniy Moncada MD Oct 18, 2016 08:15
[2016-10-18] MEDS ORDERED: SODIUM CHLORIDE 0.9% FLUSH 10 ML FLUSH IV FLUSH SCH (09:00)
--- NOTE | 2016-10-18 09:45 | HHI.DS ---
Discharge Summary Admission Date Oct 11, 2016 at 20:20 Discharge Date: Oct 18, 2016 Admitting Diagnosis Ocular Syphilis (1) Ocular syphilis ICD Code: A52.71 Diagnosis: Principal (2) Eye pain ICD Code: H57.10 Diagnosis: Principal (3) Dehydration ICD Code: E86.0 Diagnosis: Principal Procedures 10/14- LP Brief History - From Admission This is a 61-year-old male with a PMH of Anxiety was referred to the ER by his [employer] Machine, Dr. Montes De Oca, for treatment of Ocular Syphilis. Per pt, he's had ongoing blurry vision and pain in right eye for approx 1 month. Was seen by Dr. Montes De Oca as outpatient, initially diagnosed w/ Vitreitis and was prescribed Antibiotic gtt and Cycloplegics, reports compliance w/ antibiotics. Later [facility] where he had multiple labs drawn. States he was told today results were positive for Syphilis and was instructed to go to the ER for IV Abx. No reported h/o Syphilis in the past, denies h/o HIV. No headache, nausea/vomiting, fever or chills. On arrival, BP 129/91, HR 88, O2 sat 99% on RA Afebrile. CBC essentially unremarkable. Chemistry unremarkable except for dehydration, BUN 24, GFR 69. Lactic Acid 1.0. INR 0.9. UA negative. CXR with no acute findings. Dr. Montes De Oca contacted by ER physician, recommended initiation of IV Abx. CBC/BMP: 10/16/16 1505 Significant Findings Laboratory Tests Test 10/16/16 15:05 Blood Urea Nitrogen 23 MG/DL (7-18) Estimat Glomerular Filtration 70 ML/MIN (>89) Rate Imaging Last Impressions Chest X-Ray 10/17/16 0000 Signed Impressions: Service Date/Time: October 12:18 - CONCLUSION: 1. No acute focal pulmonary infiltrate or pulmonary vascular congestion. 2. Right-sided PICC line has its tip in the SVC in good position. Capo Lr MD Lumbar Puncture Fluoroscopy 10/14/16 0000 Signed Impressions: Service Date/Time: Friday, October 14, 2016 08:24 - CONCLUSION: Uncomplicated fluoroscopically guided lumbar puncture with pressures as above. Robbin Celestin Jr., MD Orbit CT 10/13/16 0000 Signed Impressions: Service Date/Time: Thursday, October 13, 2016 17:44 - CONCLUSION: Asymmetry in the size of the optic nerves with the right being slightly larger than the right. Otherwise within normal limits. Julio Abarca MD Head CT 10/13/16 0000 Signed Impressions: Service Date/Time: Thursday, October 13, 2016 17:41 - CONCLUSION: No acute intracranial findings. Julio Abarca MD PE at Discharge GENERAL: No acute distress. SKIN: Warm and dry. HEAD: Atraumatic. Normocephalic. EYES: mild erythema/injection fo the right sclerae- improved, pupils equal on today's exam , blurred vision right eye ENT: No nasal bleeding or discharge. Mucous membranes pink and moist. NECK: Trachea midline. No JVD. CARDIOVASCULAR: Regular rate and rhythm. RESPIRATORY: No accessory muscle use. Clear to auscultation. Breath sounds equal bilaterally. GASTROINTESTINAL: Abdomen soft, non-tender, nondistended. Hepatic and splenic margins not palpable. MUSCULOSKELETAL: Extremities without clubbing, cyanosis, or edema. No obvious deformities. NEUROLOGICAL: Awake and alert. No obvious cranial nerve deficits. Motor grossly within normal limits. Five out of 5 muscle strength in the arms and legs. Normal speech. PSYCHIATRIC: Appropriate mood and affect; insight and judgment normal. Hospital Course This is a pleasant 61 y/o male with Anxiety, referred by Ophthalmology specialist for treatment of Ocular Syphilis Initially diagnosed w/ Vitreitis and was prescribed Antibiotic gtt and Cycloplegics, reports compliance w/ antibiotics. Later [facility] and multiple laboratory taken was told he had Syphilis, continue with retroorbital pain blurred vision. 10/17: Seen in his bedroom and discussed with nurse Miss Montelongo awaiting for discharge recommendations by case aide, discussed at this time with Screening Representative and she will notify me during the day for discharge arrangements when this are done, bus tickets, and antibiotics and HHC not yet arranged, patient asked for pain medicine on discharge no nausea vomit or diarrhea. 10/18: Patient stable in his bedroom, discussed with Screening Representative today she has the patient ready for discharge, antibiotics as per ID specialist and follow up. no nausea, vomit or diarrhea. Assessment and Plan 61 years old male wears contact lens 1. Ocular Syphilis. seen by Ophthalmology specialist OD Vision 20/200, no view to retina due to vitreous Hemorrhage, recommended to re start Pred Forte 1% QID OD patient refuses to re start Atropine, follow outpatient once two weeks course of Pen G complete. 2. Neurosyphillis VDRL Positive, to continue Penicillin G dose increased to 4 Million every 4 hours until 10/14. Okay to Discharge Home on IV pump recommended Neurologic examination and Lumbar Puncture at three to six months after treatment and every six months thereafter until CSF VDRL and white blood cell count are normal. Failure of the CSF WBC count to decrease 6 months after therapy or failure of CSF-VDRL to decline fourfold one year after therapy are indications for re-treatment. The CSF white blood cell count should decline by six months after successful treatment, and all CSF abnormalities should resolve by two years after treatment 3. Eye Pain: Right. Secondary to above. Analgesics as needed. Chlamydiae and GC negative IV Morphine prn for pain --1 mg q 6 prn for breakthrough pain, Lortab q 4 d/w him pain meds Ophthalmology consult for ff up- seen as OP 4. Dehydration:resolved - clinically good po. DVT Prophylaxis: SCD/Teds. - up and ambulating Discussed with Screening Representative she has everything ready for discharge given orders. CM- DC planning- not ready for DC on q 4 IV antibiotics at least 2 weeks - OP Discharge Planning Discharge Home with [facility] for antibiotics infusion. Pt Condition on Discharge: Good Discharge Disposition: Disch w/ Home Health Serv Discharge Time: > 30 minutes Discharge Instructions DIET: Follow Instructions for: As Tolerated, No Restrictions Activities you can perform: Regular-No Restrictions Yevgeniy Moncada MD Oct 18, 2016 09:45
[2016-10-22] MEDS ORDERED: PRED1SUS RIGHT EYE (09:38)
== END 2016-10-18 10:25 | disposition home health service (06) | DRG 30 ==
LOC: NEPD 17:57 → NEDA 20:20 → N07B 21:48
PROVIDERS: ADMIT Internal Medicine; ATTEND Internal Medicine
PROC: 009Y3ZX Drainage of Lumbar Spinal Cord, Percutaneous Approach, Diagnostic (ICD-10-PCS; principal; 2016-10-14)
DX: A52.3 Neurosyphilis, unspecified (principal); H43.10 Vitreous hemorrhage, unspecified eye; E86.0 Dehydration; H54.7 Unspecified visual loss; F41.9 Anxiety disorder, unspecified
CPT/HCPCS: 36569; 62270; 70450; 70481; 71010; 76937; 77003; 80048; 80053; 81001; 82945; 83605; 85025; 85610; 85730; 86355; 86357; 86359; 86360; 86592; 86703; 87491; 87591; 87641; 89051; 93005; 96374; 96375; J1642; J1885; J2270; J7030; Q9967

== ENCOUNTER 2016-11-26 13:33 | Emergency (ER) | payer OTHER ==
[~2016-11-26] VITALS: Ht 185.4 cm; Wt 90.0 kg
[~2016-11-26 13:33] MED LIST changes: +EPIN1INJ21 IV PUSH; +EPIN1INJ21 SQ; +HYDR-3583 PO; -NORC5TAB PO; +PENI5INJ IV; +PRED1SUS RIGHT EYE; +SOLU250I IV PUSH
[2016-11-26 13:34] VITALS: BP 142/78; PULSE 107; RESP 16; TEMP 98.4; O2SAT 98
[2016-11-26] MEDS ORDERED: IBUP800T23 PO (14:17)
[2016-11-26] MEDS ORDERED: MAGICADU2 SWISH-SPIT (14:17)
[2016-11-26] MEDS ORDERED: MAPA500T13 PO (14:17)
[2016-11-26] MEDS ORDERED: PENI500T PO (14:17)
--- NOTE | 2016-11-26 14:23 | PD ---
HPI Chief Complaint: ENT Complaint Time Seen by Provider: 14:08 Travel History International Travel<30 days: No Contact w/Intl Traveler<30days: No Traveled to known affect area: No History of Present Illness HPI 61-year-old male presents the emergency department with pain and swelling to the #14 tooth for the past several days. Patient states he's been trying to treat [id number] without improvement. He is having some pus like drainage in the last 24 hours. He denies fever, chills, or difficulty swallowing. Pain is currently a 9 out of 10. He has no known drug allergies. PFSH Past Medical History Arthritis: Yes Autoimmune Disease: No Anxiety: Yes Cancer: No Cardiovascular Problems: No Diabetes: No Diminished Hearing: No Endocrine: No Gastrointestinal Disorders: Yes Genitourinary: No Immune Disorder: No Musculoskeletal: Yes Neurologic: No Psychiatric: No Reproductive: No Respiratory: No Thyroid Disease: No ?: Not Past Surgical History AICD: No Ear Surgery: Yes (ILENE. MYRINGOTOMIES) Oral Surgery: Yes (T & A) Pacemaker: No Tonsillectomy: Yes Tympanostomy Tube: Yes Other Surgery: Yes Social History Alcohol Use: No Tobacco Use: No Substance Use: No Allergies-Medications (Allergen,Severity, Reaction): Coded Allergies: No Known Allergies (Unverified , 11/26/16) Reported Meds & Prescriptions Reported Meds & Active Scripts Active Magic Mouthwash Adult Liq (Multi-Ingredient Mouthwash/Gargle) 120 Ml Susp 10 Ml SWISH-SPIT Q2HR Each 5mL contains: Nystatin 200,000units, Diphenhydramine 4.25mg, Viscous Lidocaine 10mg, Kimbrough syrup 0.8 mL Mapap Extra Strength (Acetaminophen) 500 Mg Tab 1,000 Mg PO Q4-6H PRN Ibuprofen 800 Mg Tab 800 Mg PO Q8H PRN Penicillin V Potassium 500 Mg Tab 500 Mg PO Q6H 10 Days Hydrocodone-Acetaminophen 10-325 mg Tab 1 Tab PO Q4H PRN DO NOT USE THIS MEDICINE IF YOU WILL DRIVE A CAR OR USE A MACHINE, ONLY USE IT WHEN RESTING AT HOME. Epinephrine Inj 1 Mg/Ml Inj 0.3 Mg SQ ONCE PRN Give with any signs of respiratory distress. Epinephrine Inj 1 Mg/Ml Inj 0.3 Mg IV PUSH ONCE PRN Solu-Cortef Inj (Hydrocortisone Sodium Succinate) 250 Mg Inj 250 Mg IV PUSH ONCE PRN Give over 30-60 seconds. Penicillin G Potassium Infusion Bag 20,000,000 Units IV CONTINUOUS 10 Days Quantity Sufficient to total # of doses ____ Stop date: Reported Pred Forte Opth 1% (Prednisolone Acetate Opth 1%) 1% Susp 1 Drop RIGHT EYE QID Review of Systems Except as stated in HPI: all other systems reviewed are Neg General / Constitutional: No: Fever Eyes: No: Visual changes HENT: Positive: Dental Difficulties, No: Headaches, Vertigo, Lightheadedness, Sore Throat, Rhinitis, Rhinorrhea, Congestion, Nosebleed, Neck Stiffness, Neck Pain, Gingival Bleeding, Ear Discharge, Earache Cardiovascular: No: Chest Pain or Discomfort Respiratory: No: Shortness of Breath Gastrointestinal: No: Abdominal Pain Genitourinary: No: Dysuria Musculoskeletal: No: Pain Skin: No Rash Neurologic: No: Weakness Psychiatric: No: Depression Endocrine: No: Polydipsia Hematologic/Lymphatic: No: Easy Bruising Physical Exam Narrative GENERAL: Patient appears in mild to moderate distress. SKIN: Warm and dry. Normal color. Normal turgor. No erythema. HEAD: Atraumatic. Normocephalic. Patient is tenderness along the left upper jaw line. EYES: Pupils equal and round. No scleral icterus. No injection or drainage. ENT: No nasal bleeding or discharge. Mucous membranes pink and moist. Pharynx is clear. Airway is normal. Patient has fairly poor teeth, but no obvious signs of dental abscess currently. Patient is tenderness with palpation of the #14 tooth. He has mild gingival swelling at the base. NECK: Trachea midline. Supple nontender without lymphadenopathy. CARDIOVASCULAR: Regular rate and rhythm. RESPIRATORY: No accessory muscle use. Clear to auscultation. Breath sounds equal bilaterally. MUSCULOSKELETAL: Extremities without clubbing, cyanosis, or edema. No obvious deformities. NEUROLOGICAL: Awake and alert. No obvious cranial nerve deficits. Motor grossly within normal limits. Five out of 5 muscle strength in the arms and legs. Normal speech. PSYCHIATRIC: Appropriate mood and affect; insight and judgment normal. Data Data Last Documented VS Vital Signs Date Time Temp Pulse Resp B/P (MAP) Pulse Ox O2 Delivery O2 Flow Rate FiO2 11/26/16 13:34 98.4 107 16 142/78 (99) 98 [facility] Medical Decision Making Medical Screen Exam Complete: Yes Emergency Medical Condition: Yes Differential Diagnosis Dental pain. Dental caries. Dental abscess. Narrative Course Patient is treated with penicillin V, 500 mg 4 times a day #40. Patient is given ibuprofen 800 mg 3 times daily with food #30. Patient is given acetaminophen 500 mg 2 tabs every 6 hours when necessary. #60 Patient is given Magic mouthwash as directed #20 mL's with 2 refills. Patient follow-up with local dental resources as soon as possible. Diagnosis Primary Impression: Dental abscess Referrals: Cristal Lira MD Patient Instructions: General Instructions Scripts Phhwczet-Ufytwsvsxfdgurp-Mhdwzojeu Liq (Magic Mouthwash Adult Liq) 120 Ml Susp 10 ML SWISH-SPIT Q2HR for Mouth sores, #120 ML 2 Refills Each 5mL contains: Nystatin 200,000units, Diphenhydramine 4.25mg, Viscous Lidocaine 10mg, Kimbrough syrup 0.8 mL Prov: Mervin Ma MD 11/26/16 Acetaminophen (Mapap Extra Strength) 500 Mg Tab 1000 MG PO Q4-6H Y for PAIN, #60 TAB 0 Refills Prov: Mervin Ma MD 11/26/16 Ibuprofen (Ibuprofen) 800 Mg Tab 800 MG PO Q8H Y for Pain/Inflammation, #60 TAB 0 Refills Prov: Mervin Ma MD 11/26/16 Penicillin V Potassium (Penicillin V Potassium) 500 Mg Tab 500 MG PO Q6H for Infection for 10 Days, #40 TAB 0 Refills Prov: Mervin Ma MD 11/26/16 Disposition: 01 DISCHARGE HOME Condition: Stable Diony Gonzalez Nov 26, 2016 14:23
== END 2016-11-26 14:37 | disposition home or self-care (01) ==
LOC: NEPK 13:33
DX: K04.7 Periapical abscess without sinus (principal)
CPT/HCPCS: 99284

== ENCOUNTER 2016-12-20 19:21 | Emergency (ER) | payer SELFPAY ==
[~2016-12-20] VITALS: Ht 188 cm; Wt 92.0 kg
[~2016-12-20 19:21] MED LIST changes: +IBUP800T23 PO; +MAGICADU2 SWISH-SPIT; +MAPA500T13 PO; +PENI500T PO
[2016-12-20 19:23] VITALS: BP 123/83; PULSE 83; RESP 14; TEMP 98; O2SAT 97
[2016-12-20] MEDS ORDERED: IBUP800T23 PO (19:47)
[2016-12-20] MEDS ORDERED: CLIN1CAP6 PO (19:47)
--- NOTE | 2016-12-20 19:47 | PD ---
HPI Chief Complaint: Oral / Dental Pain or Problem Time Seen by Provider: 19:41 Travel History International Travel<30 days: No Contact w/Intl Traveler<30days: No Traveled to known affect area: No History of Present Illness HPI Patient is a 61-year-old male presenting to the emergency department for evaluation of left upper tooth pain. Patient states the pain started 4-5 days ago. He states his pain is a 7 out of 10 and describes it as throbbing. There are no alleviating factors, pain is exacerbated with chewing. He denies any fever or chills, headache, neck pain or sore throat. Patient states that he needs to get a dentist, he reports being evaluated for a similar complaint one month ago on the lower left side. PFSH Past Medical History Arthritis: Yes Autoimmune Disease: No Anxiety: Yes Cancer: No Cardiovascular Problems: No Diabetes: No Diminished Hearing: No Endocrine: No Gastrointestinal Disorders: Yes Genitourinary: No Immune Disorder: No Musculoskeletal: Yes Neurologic: No Psychiatric: No Reproductive: No Respiratory: No Thyroid Disease: No Past Surgical History AICD: No Ear Surgery: Yes (ILENE. MYRINGOTOMIES) Oral Surgery: Yes (T & A) Pacemaker: No Tonsillectomy: Yes Tympanostomy Tube: Yes Other Surgery: Yes Social History Alcohol Use: No Tobacco Use: No Substance Use: No Allergies-Medications (Allergen,Severity, Reaction): Coded Allergies: No Known Allergies (Unverified , 12/20/16) Reported Meds & Prescriptions Reported Meds & Active Scripts Active Magic Mouthwash Adult Liq (Multi-Ingredient Mouthwash/Gargle) 120 Ml Susp 10 Ml SWISH-SPIT Q2HR Each 5mL contains: Nystatin 200,000units, Diphenhydramine 4.25mg, Viscous Lidocaine 10mg, Kimbrough syrup 0.8 mL Mapap Extra Strength (Acetaminophen) 500 Mg Tab 1,000 Mg PO Q4-6H PRN Ibuprofen 800 Mg Tab 800 Mg PO Q8H PRN Penicillin V Potassium 500 Mg Tab 500 Mg PO Q6H 10 Days Hydrocodone-Acetaminophen 10-325 mg Tab 1 Tab PO Q4H PRN DO NOT USE THIS MEDICINE IF YOU WILL DRIVE A CAR OR USE A MACHINE, ONLY USE IT WHEN RESTING AT HOME. Epinephrine Inj 1 Mg/Ml Inj 0.3 Mg SQ ONCE PRN Give with any signs of respiratory distress. Epinephrine Inj 1 Mg/Ml Inj 0.3 Mg IV PUSH ONCE PRN Solu-Cortef Inj (Hydrocortisone Sodium Succinate) 250 Mg Inj 250 Mg IV PUSH ONCE PRN Give over 30-60 seconds. Penicillin G Potassium Infusion Bag 20,000,000 Units IV CONTINUOUS 10 Days Quantity Sufficient to total # of doses ____ Stop date: Reported Pred Forte Opth 1% (Prednisolone Acetate Opth 1%) 1% Susp 1 Drop RIGHT EYE QID Review of Systems Except as stated in HPI: all other systems reviewed are Neg HENT: Positive: Dental Difficulties Physical Exam Narrative GENERAL: Well-developed, well-nourished, alert male. Resting in no acute distress. SKIN: Warm and dry. HEAD: Normocephalic. MOUTH: Mucous membranes moist, no lesions, tongue and gums appear normal. Broken first molar on the left upper, dental caries noted. No obvious signs of abscess at this time. EYES: No scleral icterus. No injection or drainage. NECK: Supple, trachea midline. No JVD or lymphadenopathy. CARDIOVASCULAR: Regular rate and rhythm without murmurs, gallops, or rubs. RESPIRATORY: Breath sounds equal bilaterally. No accessory muscle use. GASTROINTESTINAL: Abdomen soft, non-tender, nondistended. MUSCULOSKELETAL: No cyanosis, or edema. BACK: Nontender without obvious deformity. No CVA tenderness. Data Data Last Documented VS Vital Signs Date Time Temp Pulse Resp B/P (MAP) Pulse Ox O2 Delivery O2 Flow Rate FiO2 12/20/16 19:23 98.0 83 14 123/83 (96) 97 Room Air [facility] [place] Medical Decision Making Medical Screen Exam Complete: Yes Emergency Medical Condition: Yes Interpretation(s) Vital Signs Date Time Temp Pulse Resp B/P (MAP) Pulse Ox O2 Delivery O2 Flow Rate FiO2 12/20/16 19:23 98.0 83 14 123/83 (96) 97 Room Air Differential Diagnosis Dentalgia versus abscess versus caries versus other Narrative Course Patient is a 61-year-old male that presented to the emergency department for evaluation of left upper tooth pain. Patient has multiple dental caries and the broken tooth. Patient was treated with penicillin last month, we'll change antibiotics to clindamycin at this time. Patient was encouraged to follow up with a dentist, he was given a list of local clinics in the area. He was encouraged to obtain [id number] Orajel or similar agent and and use as needed and as directed. He was encouraged to return to emergency department for any new or worsening symptoms. Patient verbalized understanding of the instructions. Patient is stable for discharge. Diagnosis Primary Impression: Pain, dental Additional Impression: Dental caries Referrals: Dentist 3 days Patient Instructions: Dental Caries (DC), General Instructions Additional Instructions: Complete full course of antibiotics as prescribed even if you begin to feel better Obtain [id number] Orajel or similar agent and use as needed and as directed to the affected area Take ibuprofen as needed and as directed for pain Follow-up with a dentist for further evaluation and management of dental issues Return to emergency department for any new or worsening symptoms Med/Other Pt SpecificInfo: Prescription(s) given Scripts Ibuprofen (Ibuprofen) 800 Mg Tab 800 MG PO Q6HR Y for PAIN, #40 TAB 0 Refills Prov: Kaitlyn Perez 12/20/16 Clindamycin (Clindamycin) 300 Mg Cap 300 MG PO TID for Infection for 10 Days, CAP 0 Refills Prov: Kaitlyn Perez 12/20/16 Disposition: 01 DISCHARGE HOME Condition: Stable Kaitlyn Perez Dec 20, 2016 19:47
== END 2016-12-20 20:02 | disposition home or self-care (01) ==
LOC: NEPK 19:21
DX: K08.89 Other specified disorders of teeth and supporting structures (principal); K02.9 Dental caries, unspecified
CPT/HCPCS: 99283

== ENCOUNTER 2017-03-07 17:27 | Emergency (ER) | payer SELFPAY ==
[~2017-03-07] VITALS: Ht 188 cm; Wt 100.0 kg
[~2017-03-07 17:27] MED LIST changes: +CLIN300C5 PO; +IBUP1TAB7 PO; -IBUP800T23 PO
[2017-03-07 17:28] VITALS: BP 140/84; PULSE 93; RESP 18; TEMP 98.8; O2SAT 98
[2017-03-07 19:05] VITALS: BP 130/82; PULSE 85; RESP 19; TEMP 98.7; O2SAT 97
--- NOTE | 2017-03-07 19:09 | PD ---
HPI Chief Complaint: Cold / Flu Symptoms Time Seen by Provider: 18:56 Travel History International Travel<30 days: No Contact w/Intl Traveler<30days: No Traveled to known affect area: No History of Present Illness HPI 61-year-old male with no significant medical history presents to emergency department for evaluation of productive cough, chest congestion, body aches, subjective fever worsening over the last 3 days. Patient states he coughs to the point of vomiting. Denies any abdominal pain. Denies any chest pain. Patient has remote history of tobacco cigarette smoking. States that he does reside in the [facility] for several residents have been sick with similar symptoms. He has no other symptoms to report. PFSH Past Medical History Arthritis: Yes Autoimmune Disease: No Anxiety: Yes Cancer: No Cardiovascular Problems: No Diabetes: No Diminished Hearing: No Endocrine: No Gastrointestinal Disorders: Yes Genitourinary: No Immune Disorder: No Musculoskeletal: Yes Neurologic: No Psychiatric: No Reproductive: No Respiratory: No Thyroid Disease: No Past Surgical History AICD: No Ear Surgery: Yes (ILENE. MYRINGOTOMIES) Oral Surgery: Yes (T & A) Pacemaker: No Tonsillectomy: Yes Tympanostomy Tube: Yes Other Surgery: Yes Social History Alcohol Use: No Tobacco Use: No Substance Use: No Allergies-Medications (Allergen,Severity, Reaction): Coded Allergies: No Known Allergies (Unverified Adverse Reaction, Unknown, 03/07/17) Reported Meds & Prescriptions Reported Meds & Active Scripts Active Ibuprofen 800 Mg Tab 800 Mg PO Q8H PRN Azithromycin 250 Mg Tab 250 Mg PO DIRECTED Take 2 tabs (500 mg) on day 1 then 1 tab daily x 4 days. Tamiflu (Oseltamivir Phosphate) 75 Mg Cap 75 Mg PO BID 5 Days Review of Systems Except as stated in HPI: all other systems reviewed are Neg Physical Exam Narrative GENERAL: Well-nourished male patient, in no acute distress. SKIN: Focused skin assessment warm/dry. HEAD: Atraumatic. Normocephalic. EYES: Pupils equal and round. No scleral icterus. No injection or drainage. ENT: No nasal bleeding or discharge. Mucous membranes pink and moist. NECK: Trachea midline. No JVD. CARDIOVASCULAR: Elevated rate and rhythm. No murmur appreciated. RESPIRATORY: No accessory muscle use. Coarse but clear to cough with a very faint expiratory wheeze to auscultation. Breath sounds equal bilaterally. GASTROINTESTINAL: Abdomen soft, non-tender, nondistended. Hepatic and splenic margins not palpable. MUSCULOSKELETAL: No obvious deformities. No clubbing. No cyanosis. No edema. NEUROLOGICAL: Awake and alert. No obvious cranial nerve deficits. Motor grossly within normal limits. Normal speech. PSYCHIATRIC: Appropriate mood and affect; insight and judgment normal. Data Data Last Documented VS Vital Signs Date Time Temp Pulse Resp B/P (MAP) Pulse Ox O2 Delivery O2 Flow Rate FiO2 03/07/17 21:05 03/07/17 19:05 98.7 85 19 97 Room Air Orders Orders Influenzae A/B Antigen (03/07/17 19:06) Albuterol-Ipratropium Neb (Duoneb Neb) (03/07/17 19:15) Prednisone (Deltasone) (03/07/17 19:15) Chest, Single Ap (03/07/17 ) Oseltamivir (Tamiflu) (03/07/17 21:15) Ed Discharge Order (03/07/17 21:06) [facility] Medical Decision Making Medical Screen Exam Complete: Yes Emergency Medical Condition: Yes Medical Record Reviewed: Yes Differential Diagnosis Influenza versus pneumonia versus bronchitis versus common cold Narrative Course 61-year-old male presents to emergency department for evaluation. Patient appears without distress. His vital signs are stable. He does have coarse breath sounds, a faint expiratory wheeze, and a productive cough. Influenza screen is ordered as well as chest x-ray. Patient is given DuoNeb treatment and steroid. Patient Is signed out to my attending physician who will disposition per his judgment. Diagnosis Primary Impression: URI (upper respiratory infection) Scripts Ibuprofen (Ibuprofen) 800 Mg Tab 800 MG PO Q8H Y for Pain/Inflammation, #20 TAB 0 Refills Prov: Mervin Ma MD 03/07/17 Azithromycin (Azithromycin) 250 Mg Tab 250 MG PO DIRECTED for Infection, #6 TAB 0 Refills Take 2 tabs (500 mg) on day 1 then 1 tab daily x 4 days. Prov: Mervin Ma MD 03/07/17 Oseltamivir (Tamiflu) 75 Mg Cap 75 MG PO BID for Mgmt Viral Infection for 5 Days, #10 CAP 0 Refills Prov: Mervin Ma MD 03/07/17 Disposition: 01 DISCHARGE HOME Condition: Stable Alejandrina Parry Mar 07, 2017 19:08
[2017-03-07] MEDS ORDERED: predniSONE 50 MG TAB PO ONE (19:15)
[2017-03-07] MEDS: RESP: ALBUTEROL 2.5 MG/IPRATROPIUM 0.5 MG NEB (SCH) NEB ONE ×2 (19:35→20:12)
--- NOTE | 2017-03-07 20:22 | RADRPT ---
EXAM DATE/TIME: 03/07/2017 20:02 [place] COMPARISON: No previous studies available for comparison. INDICATIONS : Cough and shortness of breath. MEDICAL HISTORY : Chronic obstructive pulmonary disease. SURGICAL HISTORY : None. ENCOUNTER: Initial ACUITY: 3 days PAIN SCORE: 0/10 LOCATION: chest FINDINGS: A single view of the chest demonstrates the lungs to be symmetrically aerated without evidence of mas s, infiltrate or effusion. The cardiomediastinal contours are unremarkable. Osseous structures are intact. CONCLUSION: 1. No active disease. Ravi Casiano MD on March 07, 2017 at 20:19 Board Certified Radiologist. This report was verified electronically.
[2017-03-07] MEDS ORDERED: AZIT250T3 PO (21:05)
[2017-03-07] MEDS ORDERED: OSEL75 PO (21:05)
--- NOTE | 2017-03-07 21:06 | PD ---
Data Data Last Documented VS Vital Signs Date Time Temp Pulse Resp B/P (MAP) Pulse Ox O2 Delivery O2 Flow Rate FiO2 03/07/17 19:05 98.7 85 19 130/82 (98) 97 Room Air Orders Orders Influenzae A/B Antigen (03/07/17 19:06) Albuterol-Ipratropium Neb (Duoneb Neb) (03/07/17 19:15) Prednisone (Deltasone) (03/07/17 19:15) Chest, Single Ap (03/07/17 ) Oseltamivir (Tamiflu) (03/07/17 21:15) MDM Medical Record Reviewed: Yes Supervised Visit with GARIMA: Yes Narrative Course I, Dr. Ma, have reviewed the advance practice practitioner's documentation and am in agreement, met with the patient face to face, made the diagnosis, and the medical decision making was done by me. *My assessment and Findings: Last Impressions Chest X-Ray 03/07/17 0000 Signed Impressions: Service Date/Time: Tuesday, March 07, 2017 20:02 - CONCLUSION: 1. No active disease. Ravi Casiano MD Presentation is very similar multiple prior influenza type presentations. Tamiflu prescribed a first dose given here. The patient quit smoking less than a year ago and azithromycin will be added as a prescription. The patient reports feeling much better at the time of reassessment, 9 PM and is ready to go home. Diagnosis Primary Impression: URI (upper respiratory infection) Qualified Codes: J06.9 - Acute upper respiratory infection, unspecified Referrals: Primary Care Physician 2 days Med/Other Pt SpecificInfo: Prescription(s) given Scripts Azithromycin (Azithromycin) 250 Mg Tab 250 MG PO DIRECTED for Infection, #6 TAB 0 Refills Take 2 tabs (500 mg) on day 1 then 1 tab daily x 4 days. Prov: Mervin Ma MD 03/07/17 Oseltamivir (Tamiflu) 75 Mg Cap 75 MG PO BID for Mgmt Viral Infection for 5 Days, #10 CAP 0 Refills Prov: Mervin Ma MD 03/07/17 Disposition: 01 DISCHARGE HOME Condition: Stable Mervin Ma MD Mar 07, 2017 21:06
[2017-03-07] MEDS ORDERED: IBUP1TAB7 PO (21:13)
[2017-03-07] MEDS ORDERED: OSELTAMIVIR PHOSPHATE 75 MG CAP PO ONE (21:15)
== END 2017-03-07 21:15 | disposition home or self-care (01) ==
LOC: NEPD 17:27
DX: J06.9 Acute upper respiratory infection, unspecified (principal); Z87.891 Personal history of nicotine dependence
CPT/HCPCS: 71045; 87804; 94664; 99284; J7512

== ENCOUNTER 2017-05-14 13:29 | Emergency (ER) | payer SELFPAY ==
[~2017-05-14] VITALS: Ht 188 cm; Wt 95.0 kg
[~2017-05-14 13:29] MED LIST changes: +AZIT250T3 PO; -CLIN300C5 PO; -EPIN1INJ21 IV PUSH; -EPIN1INJ21 SQ; -HYDR-3583 PO; -MAGICADU2 SWISH-SPIT; -MAPA500T13 PO; +OSEL75 PO; -PENI500T PO; -PENI5INJ IV; -PRED1SUS RIGHT EYE; -SOLU250I IV PUSH
[2017-05-14 14:10] VITALS: BP 164/71; PULSE 79; RESP 18; TEMP 98.6; O2SAT 97
[2017-05-14] MEDS ORDERED: SODIUM CHLOR 0.9% 1000 ML INJ 1,000 ML IV ONE (15:00)
[2017-05-14] MEDS ORDERED: OSELTAMIVIR PHOSPHATE 75 MG CAP PO ONE (15:00)
[2017-05-14] MEDS ORDERED: ONDANSETRON HCL 4 MG/2 ML VIAL IV PUSH ONE (15:00)
[2017-05-14] MEDS ORDERED: SODIUM CHLORIDE 0.9% FLUSH 10 ML FLUSH IVF PRN (15:00)
[2017-05-14] MEDS ORDERED: ZOFR4TAB3 SL (15:47)
[2017-05-14] MEDS ORDERED: IBUP1TAB7 PO (15:47)
[2017-05-14] MEDS ORDERED: OSEL75 PO (15:47)
--- NOTE | 2017-05-14 15:48 | PD ---
HPI Chief Complaint: Cold / Flu Symptoms Time Seen by Provider: 14:52 Travel History International Travel<30 days: No Contact w/Intl Traveler<30days: No Traveled to known affect area: No History of Present Illness HPI Patient is a 61-year-old male presenting to the emergency department for evaluation of body aches, subjective fevers, chills, nausea, vomiting, headache. Symptom onset was sudden, symptoms started 2 days ago. Patient been taking ibuprofen once a day, he states this does not completely resolve his symptoms. He states that he cannot hold any food or fluids down. Last time he vomited was 2 hours prior to arrival. He states his daughter was sick with the same symptoms. He denies any chest pain, abdominal pain. PFSH Past Medical History Arthritis: Yes Anxiety: Yes Endocrine: No Gastrointestinal Disorders: Yes Genitourinary: No Immune Disorder: No Medical other: Yes (SYPHILLIS) Musculoskeletal: Yes Neurologic: No Psychiatric: No Reproductive: No Respiratory: No Thyroid Disease: No Tetanus Vaccination: < 5 Years Influenza Vaccination: Yes Past Surgical History AICD: No Ear Surgery: Yes (ILENE. MYRINGOTOMIES) Oral Surgery: Yes (T & A) Pacemaker: No Tonsillectomy: Yes Tympanostomy Tube: Yes Other Surgery: Yes Social History Alcohol Use: No Tobacco Use: No Substance Use: No Allergies-Medications (Allergen,Severity, Reaction): Coded Allergies: No Known Allergies (Unverified Adverse Reaction, Unknown, 05/14/17) Reported Meds & Prescriptions Reported Meds & Active Scripts Active Zofran Odt (Ondansetron Odt) 4 Mg Tab 4 Mg SL Q6HR PRN Tamiflu (Oseltamivir Phosphate) 75 Mg Cap 75 Mg PO BID 5 Days Ibuprofen 800 Mg Tab 800 Mg PO Q8H PRN Review of Systems Except as stated in HPI: all other systems reviewed are Neg General / Constitutional: Positive: Fever, Chills HENT: Positive: Headaches, No: Neck Pain Cardiovascular: No: Chest Pain or Discomfort Respiratory: Positive: Cough, No: Shortness of Breath, Wheezing Gastrointestinal: Positive: Nausea, Vomiting, No: Abdominal Pain Genitourinary: No: Dysuria Musculoskeletal: Positive: Myalgias Physical Exam Narrative GENERAL: Well-developed, well-nourished, alert male. Presenting in no acute distress. SKIN: Warm and dry. HEAD: Atraumatic. Normocephalic. EYES: Pupils equal and round. No scleral icterus. No injection or drainage. ENT: No nasal bleeding or discharge. Mucous membranes pink and moist. NECK: Trachea midline. No JVD. CARDIOVASCULAR: Regular rate and rhythm. RESPIRATORY: No accessory muscle use. Clear to auscultation. Breath sounds equal bilaterally. GASTROINTESTINAL: Abdomen soft, non-tender, nondistended. Hepatic and splenic margins not palpable. MUSCULOSKELETAL: Extremities without clubbing, cyanosis, or edema. No obvious deformities. NEUROLOGICAL: Awake and alert. No obvious cranial nerve deficits. Motor grossly within normal limits. Five out of 5 muscle strength in the arms and legs. Normal speech. PSYCHIATRIC: Appropriate mood and affect; insight and judgment normal. Data Data Last Documented VS Vital Signs Date Time Temp Pulse Resp B/P (MAP) Pulse Ox O2 Delivery O2 Flow Rate FiO2 05/14/17 14:10 98.6 79 18 164/71 (102) 97 Orders Orders Influenzae A/B Antigen (05/14/17 14:12) Basic Metabolic Panel (Bmp) (05/14/17 15:00) Iv Access Insert/Monitor (05/14/17 15:00) Ondansetron Inj (Zofran Inj) (05/14/17 15:00) Sodium Chlor 0.9% 1000 Ml Inj (Ns 1000 M (05/14/17 15:00) Sodium Chloride 0.9% Flush (Ns Flush) (05/14/17 15:00) Oseltamivir (Tamiflu) (05/14/17 15:00) Ed Discharge Order (05/14/17 17:19) Labs Laboratory Tests Test 05/14/17 16:00 Blood Urea Nitrogen 17 MG/DL Creatinine 0.94 MG/DL Random Glucose 102 MG/DL Calcium Level 8.2 MG/DL Sodium Level 137 MEQ/L Potassium Level 3.7 MEQ/L Chloride Level 105 MEQ/L Carbon Dioxide Level 24.5 MEQ/L Anion Gap 8 MEQ/L Estimat Glomerular Filtration Rate 82 ML/MIN MDM Medical Decision Making Medical Screen Exam Complete: Yes Emergency Medical Condition: Yes Interpretation(s) Laboratory Tests Test 05/14/17 16:00 Blood Urea Nitrogen 17 MG/DL Creatinine 0.94 MG/DL Random Glucose 102 MG/DL Calcium Level 8.2 MG/DL Sodium Level 137 MEQ/L Potassium Level 3.7 MEQ/L Chloride Level 105 MEQ/L Carbon Dioxide Level 24.5 MEQ/L Anion Gap 8 MEQ/L Estimat Glomerular Filtration Rate 82 ML/MIN Vital Signs Date Time Temp Pulse Resp B/P (MAP) Pulse Ox O2 Delivery O2 Flow Rate FiO2 05/14/17 14:10 98.6 79 18 164/71 (102) 97 Differential Diagnosis URI versus bronchitis versus pneumonia versus influenza versus other Narrative Course Patient is 61-year-old male presenting with 2 days of cold and flulike symptoms. Patient's vital signs are stable, he is afebrile. Influenza is positive for flu A. Patient reported nausea and vomiting, metabolic panel is pending, patient will be given IV fluids and IV Zofran. He will be started on Tamiflu right now. Chemistries unremarkable, patient is stable for discharge. He was encouraged to continue symptom management. He was encouraged to return immediately for any new or worsening symptoms. Patient verbalized understanding of instructions. Patient stable for discharge. Diagnosis Primary Impression: Influenza Additional Impression: Nausea and vomiting Qualified Codes: R11.2 - Nausea with vomiting, unspecified Referrals: Primary Care Physician 2 days Patient Instructions: Acute Nausea and Vomiting (ED), General Instructions, Influenza (ED) Departure Forms: Tests/Procedures, Work Release Enter return to work date: May 19, 2017 Additional Instructions: Maintain adequate fluid intake Continue symptom management as discussed Return to emergency department for any new or worsening symptoms Follow-up with your primary doctor Med/Other Pt SpecificInfo: Prescription(s) given Scripts Ondansetron Odt (Zofran Odt) 4 Mg Tab 4 MG SL Q6HR Y for Nausea/Vomiting, #15 TAB 0 Refills Prov: Kaitlyn Perez 05/14/17 Oseltamivir (Tamiflu) 75 Mg Cap 75 MG PO BID for Mgmt Viral Infection for 5 Days, #10 CAP 0 Refills Prov: Kaitlyn Perez 05/14/17 Ibuprofen (Ibuprofen) 800 Mg Tab 800 MG PO Q8H Y for Pain/Inflammation, #60 TAB 0 Refills Prov: Kaitlyn Perez 05/14/17 Kaitlyn Perez May 14, 2017 15:48
[2017-05-14 17:03] LABS: BICARBONATE 24.5 MEQ/L (21.0-32.0); CALCIUM 8.2 MG/DL (8.5-10.1); CREATININE 0.94 MG/DL (0.60-1.30)
[2017-05-14 17:57] VITALS: BP 126/75
== END 2017-05-14 18:00 | disposition home or self-care (01) ==
LOC: NEPD 13:29
DX: J09.X2 Influenza due to identified novel influenza A virus with other respiratory manifestations (principal); R11.2 Nausea with vomiting, unspecified; A53.9 Syphilis, unspecified; F41.9 Anxiety disorder, unspecified
CPT/HCPCS: 80048; 87804; 96361; 96374; 99284; J2405; J7030

== ENCOUNTER 2017-06-06 17:28 | Emergency (ER) | payer SELFPAY ==
[~2017-06-06] VITALS: Ht 188 cm; Wt 92.0 kg
[~2017-06-06 17:28] MED LIST changes: -AZIT250T3 PO; +ZOFR4TAB3 SL
[2017-06-06 17:37] VITALS: BP 137/64; PULSE 88; RESP 18; TEMP 98.4; O2SAT 97
[2017-06-06 20:57] VITALS: BP 123/79; PULSE 78; RESP 18; TEMP 98; O2SAT 97
[2017-06-06] MEDS ORDERED: predniSONE 20 MG TAB PO ONE (21:15)
[2017-06-06] MEDS ORDERED: SULFAMETHOXAZOLE-TRIMETHOPRIM DS 800-160 MG TAB PO ONE (21:15)
[2017-06-06] MEDS ORDERED: BACT800T5 PO (21:19)
[2017-06-06] MEDS ORDERED: MEDR4PAK PO (21:19)
--- NOTE | 2017-06-06 21:29 | PD ---
HPI Chief Complaint: ENT Complaint Time Seen by Provider: 20:57 Travel History International Travel<30 days: No Contact w/Intl Traveler<30days: No Traveled to known affect area: No History of Present Illness HPI 61-year-old male presents emergency department for evaluation of sinus congestion, productive cough with green sputum, para-sinus tenderness, and bilateral ear fullness. Says he was treated 2 weeks ago for the flu and this is completely resolved however, he developed this illness recently. He denies fever, chills, chest pain, shortness of breath, abdominal pain. Says he has history of myringotomy in the left ear. Also says he was very ill with syphilis in 2017 which required 2 weeks of antibiotic therapy. He otherwise denies any medical issues or medication use. PFSH Past Medical History Arthritis: Yes Anxiety: Yes Diminished Hearing: No Endocrine: No Gastrointestinal Disorders: Yes Genitourinary: No Immune Disorder: No Musculoskeletal: Yes Neurologic: No Psychiatric: No Reproductive: No Respiratory: No Thyroid Disease: No Past Surgical History AICD: No Ear Surgery: Yes (ILENE. MYRINGOTOMIES) Oral Surgery: Yes (T & A) Pacemaker: No Tonsillectomy: Yes Tympanostomy Tube: Yes Other Surgery: Yes Social History Alcohol Use: No Tobacco Use: No Substance Use: No Allergies-Medications (Allergen,Severity, Reaction): Coded Allergies: No Known Allergies (Unverified Adverse Reaction, Unknown, 05/14/17) Reported Meds & Prescriptions Reported Meds & Active Scripts Active Ciprodex Otic Drops (Ciprofloxacin-Dexamethasone Otic Drops) 0.3-0.1% Susp 4 Drop LEFT EAR BID 7 Days Medrol Dosepak (Methylprednisolone) 4 Mg Dspk 4 Mg PO DIRECTED Per Pharmacist direction Bactrim DS (Sulfamethoxazole-Trimethoprim) 800-160 Mg Tab 1 Tab PO BID Review of Systems Except as stated in HPI: all other systems reviewed are Neg Physical Exam Narrative GENERAL: Well-nourished, well-developed patient. SKIN: Focused skin assessment warm/dry, very tanned skin. Unkempt clothing HEAD: Normocephalic. EYES: No scleral icterus. No injection or drainage. EARS: Bilateral pinnae appear within normal limits. Left ear canal mildly erythematous with yellow and white exudate. Tympanic sclerosis present. Right tympanic membrane nonbulging, nonerythematous. No obvious air-fluid level NECK: Supple, trachea midline. No JVD or lymphadenopathy. CARDIOVASCULAR: Regular rate and rhythm without murmurs, gallops, or rubs. RESPIRATORY: Breath sounds equal bilaterally. No accessory muscle use. Slight rhonchi right lobes without wheezes or rales GASTROINTESTINAL: Abdomen soft, non-tender, nondistended. No CVA tenderness MUSCULOSKELETAL: No cyanosis, or edema. BACK: Nontender without obvious deformity. No CVA tenderness. Data Data Last Documented VS Vital Signs Date Time Temp Pulse Resp B/P (MAP) Pulse Ox O2 Delivery O2 Flow Rate FiO2 06/06/17 21:50 06/06/17 20:57 98.0 78 18 97 Room Air Orders Orders Sulfamet-Trimeth Ds 800-160 Mg (Bactrim (06/06/17 21:15) Prednisone (Deltasone) (06/06/17 21:15) Ed Discharge Order (06/06/17 21:45) [facility] Medical Decision Making Medical Screen Exam Complete: Yes Emergency Medical Condition: Yes Differential Diagnosis Acute sinusitis, upper respiratory infection, otitis externa Narrative Course 61-year-old male presents emergency department for evaluation of sinusitis and a productive cough. Vital signs are stable. His exam findings consistent with sinusitis and left otitis externa. Patient received Bactrim and prednisone in the emergency today. Patient will be discharged with Bactrim and prednisone for outpatient use. Ciprodex for otitis externa. He should follow-up with [facility]. Return to the emergency department for worsening or persistent symptoms. Diagnosis Primary Impression: Sinusitis Qualified Codes: J01.10 - Acute frontal sinusitis, unspecified Additional Impression: Otitis externa Qualified Codes: H60.392 - Other infective otitis externa, left ear Referrals: [facility] Additional Instructions: Follow-up with [facility] as discussed. Take all medications as prescribed. You received your first dose of medication tonight. Scripts Ciprofloxacin-Dexamethasone Otic Drops (Ciprodex Otic Drops) 0.3-0.1% Susp 4 DROP LEFT EAR BID for Infection for 7 Days, #1 BOTTLE 0 Refills Prov: Huang Cabrera MD 06/06/17 Methylprednisolone Dosepak (Medrol Dosepak) 4 Mg Dspk 4 MG PO DIRECTED, #1 DSPK 0 Refills Per Pharmacist direction Prov: Huang Cabrera MD 06/06/17 Sulfamethoxazole-Trimethoprim (Bactrim DS) 800-160 Mg Tab 1 TAB PO BID for Infection, #20 TAB 0 Refills Prov: Huang Cabrera MD 06/06/17 Disposition: 01 DISCHARGE HOME Condition: Stable Lakeisha Allen Jun 06, 2017 21:29
[2017-06-06] MEDS ORDERED: CIPR0.3S LEFT EAR (21:32)
== END 2017-06-06 21:55 | disposition home or self-care (01) ==
LOC: NEPC 17:28
DX: J32.9 Chronic sinusitis, unspecified (principal); H60.92 Unspecified otitis externa, left ear; M19.90 Unspecified osteoarthritis, unspecified site; F41.9 Anxiety disorder, unspecified
CPT/HCPCS: 99283; J7512

== ENCOUNTER 2017-06-25 16:33 | Emergency (ER) | payer SELFPAY ==
[~2017-06-25 16:33] MED LIST changes: +BACT800T5 PO; +CIPR0.3S LEFT EAR; -IBUP1TAB7 PO; +MEDR4PAK PO; -OSEL75 PO; -ZOFR4TAB3 SL
[2017-06-25 16:53] VITALS: BP 122/63; PULSE 86; RESP 16; TEMP 98.4; O2SAT 95
[2017-06-25] MEDS ORDERED: CORTI10A LEFT EAR (19:38)
--- NOTE | 2017-06-25 19:52 | PD ---
HPI Chief Complaint: ENT Complaint Time Seen by Provider: 19:14 Travel History International Travel<30 days: No Contact w/Intl Traveler<30days: No Traveled to known affect area: No History of Present Illness HPI 61-year-old male presents to the emergency room for evaluation of left otitis externa. Patient states symptoms have been ongoing for the past 20+ days. He came to the emergency room previously for sinus infection and was prescribed Ciprodex but could not afford it. He has been living with drainage from the left ear since then. Patient reports moderate to severe pain. Occasionally takes ibuprofen. He denies fever, chills, nausea, vomiting. PFSH Past Medical History Arthritis: Yes Anxiety: Yes Diminished Hearing: No Endocrine: No Gastrointestinal Disorders: Yes Genitourinary: No Immune Disorder: No Musculoskeletal: Yes Neurologic: No Psychiatric: No Reproductive: No Respiratory: No Thyroid Disease: No Past Surgical History AICD: No Ear Surgery: Yes (ILENE. MYRINGOTOMIES) Oral Surgery: Yes (T & A) Pacemaker: No Tonsillectomy: Yes Tympanostomy Tube: Yes Other Surgery: Yes Social History Alcohol Use: No Tobacco Use: No Substance Use: No Allergies-Medications (Allergen,Severity, Reaction): Coded Allergies: No Known Allergies (Unverified Adverse Reaction, Unknown, 05/14/17) Reported Meds & Prescriptions Reported Meds & Active Scripts Active Irupvrdl-Jvzmpmuls-SV Otic Drops (Neomycin/Polymyxin/Hydrocortisone) 1 % Soln 4 Drop LEFT EAR QID Ciprodex Otic Drops (Ciprofloxacin-Dexamethasone Otic Drops) 0.3-0.1% Susp 4 Drop LEFT EAR BID 7 Days Medrol Dosepak (Methylprednisolone) 4 Mg Dspk 4 Mg PO DIRECTED Per Pharmacist direction Bactrim DS (Sulfamethoxazole-Trimethoprim) 800-160 Mg Tab 1 Tab PO BID Review of Systems Except as stated in HPI: all other systems reviewed are Neg Physical Exam Narrative GENERAL: Well-nourished, well-developed male in no acute distress. Afebrile. Ambulatory. SKIN: Focused skin assessment warm/dry. HEAD: Normocephalic. EYES: No scleral icterus. No injection or drainage. NECK: Supple, trachea midline. No JVD or lymphadenopathy. EARS: Bilateral pinnae unremarkable. Right external canal and tympanic membrane are unremarkable. Left external canal shows significant purulent drainage and mild edema. Tympanic membrane cannot be visualized. No mastoid tenderness. CARDIOVASCULAR: Regular rate and rhythm without murmurs, gallops, or rubs. RESPIRATORY: Breath sounds equal bilaterally. No accessory muscle use. Data Data Last Documented VS Vital Signs Date Time Temp Pulse Resp B/P (MAP) Pulse Ox O2 Delivery O2 Flow Rate FiO2 06/25/17 16:53 98.4 86 16 122/63 (82) 95 Orders Orders Ear Irrigation (06/25/17 19:22) [facility] Medical Decision Making Medical Screen Exam Complete: Yes Emergency Medical Condition: Yes Medical Record Reviewed: Yes Differential Diagnosis Otitis externa, otitis media, sinus infection, syphilis Narrative Course 61-year-old male presents to the emergency room for evaluation of left ear drainage for the past several weeks. Patient came previously for the same and was given Ciprodex but the medication was too expensive so he never had it filled. Reports persistence of symptoms. No systemic signs of infection. No mastoid tenderness. Physical exam reveals diffuse purulent drainage from the left ear. Tympanic membrane cannot be visualized. Irrigation was performed in the emergency room. Patient discharged with more affordable eardrops and told to follow-up with a primary care physician or return for worsening symptoms. He understands and agrees to plan. Diagnosis Primary Impression: Left otitis externa Qualified Codes: H60.502 - Unspecified acute noninfective otitis externa, left ear Referrals: Primary Care Physician Additional Instructions: Rest and drink plenty of fluids. Apply 4 drops to the left ear 4 times a day for 10 days. Take ibuprofen with food as directed, as needed for pain. Follow-up with a primary care physician. Return to the emergency room for worsening symptoms. Med/Other Pt SpecificInfo: Prescription(s) given Scripts Skgnqaqt-Dethavlir-SV Otic Drops (Pvhmsiqa-Fjwugwnxl-SA Otic Drops) 1 % Soln 4 DROP LEFT EAR QID for Infection, #1 BOTTLE 0 Refills Prov: Rj Lyon MD 06/25/17 Disposition: 01 DISCHARGE HOME Condition: Stable Sarah Maxwell Jun 25, 2017 19:52
== END 2017-06-25 20:18 | disposition home or self-care (01) ==
LOC: NEPD 16:33
DX: H60.502 Unspecified acute noninfective otitis externa, left ear (principal)
CPT/HCPCS: 99283